=== PATIENT | male | born 1940 | race Caucasian/White ===

== ENCOUNTER 2020-08-31 11:07 | Observation (INO) | payer MEDICARE, SELFPAY ==
[2020-08-31] VITALS (13 sets, daily range): BP systolic 117–158; BP diastolic 70–91; PULSE 63–91; RESP 14–20; TEMP 36–36.8; O2SAT 97–100; BMI 35.2
--- NOTE | ~2020-08-31 | US_ITS ---
EXAMINATION: US venous doppler [facility] DATE: 09/01/2020 13:30 INDICATION: Lower limb edema. TECHNIQUE: Grayscale ultrasound images without and with compression and Doppler ultrasound images of the bilateral lower extremity veins were obtained. COMPARISON: None. FINDINGS: The visualized portions of right common femoral vein, profunda (deep) femoral vein, femoral vein, pop liteal vein, peroneal veins, posterior tibial veins, and greater saphenous vein outflow are patent. The visualized portions of left common femoral vein, profunda femoral vein, femoral vein, popliteal v ein, peroneal veins, posterior tibial veins, and greater saphenous vein outflow are patent. IMPRESSION: 1. No deep venous thrombosis. Reviewed, dictated and finalized at location A.
--- NOTE | ~2020-08-31 | XR_ITS ---
EXAMINATION: XR chest 1V portable DATE: 08/31/2020 12:21 INDICATION: Syncope. TECHNIQUE: A single frontal view of the chest was obtained on 2 radiographs. COMPARISON: None. FINDINGS: There is mild atelectasis in right lower lung zone. No pleural effusion or pneumothorax. Th e heart size is normal. There are prominent paracardial fat pads. Median sternotomy wires and mediast inal surgical clips are seen, likely from prior coronary artery bypass grafting. IMPRESSION: 1. Mild atelectasis in right lower lung zone. Reviewed, dictated and finalized at location A. ORATE LEGAL MANAGER
--- NOTE | ~2020-08-31 | US_ITS ---
EXAMINATION: US carotid duplex BI DATE: 09/01/2020 13:33 INDICATION: Syncope. TECHNIQUE: Grayscale, color Doppler, and pulsed Doppler images of the cervical carotid arteries were obtained. The degree of vessel stenosis is placed in one of the following categories: normal, <50%, 5 0-69%, >=70% but less than near-occlusion, near-occlusion, or total occlusion. Note that percent sten osis relative to normal distal artery lumen diameter is indirectly measured from velocity measurement s as described by Javier, et al. Radiology 2003; 229:340-346. COMPARISON: None. FINDINGS: RIGHT: The right common carotid artery (CCA) peak systolic velocity (PSV) is 63 cm/s. The right internal car otid artery (ICA) PSV is 63 cm/s. The right ICA end-diastolic velocity (EDV) is 11 cm/s. The right IC A/CCA PSV ratio is 1.0. Grayscale and color Doppler images yield an estimate of <50% diameter reducti on from plaque in the ICA. There is antegrade flow in the right vertebral artery. LEFT: The left CCA PSV is 58 cm/s. The left ICA PSV is 90 cm/s. The left ICA EDV is 21 cm/s. The left ICA/C CA PSV ratio is 1.6. Grayscale and color Doppler images yield an estimate of <50% diameter reduction from plaque in the ICA. There is antegrade flow in the left vertebral artery. IMPRESSION: 1. <50% stenosis in the right internal carotid artery. 2. <50% stenosis in the left internal carotid artery. Reviewed, dictated and finalized at location A.
--- NOTE | ~2020-08-31 | CT_ITS ---
EXAMINATION: CT brain wo con DATE: 08/31/2020 12:41 INDICATION: Loss of consciousness. Fall. TECHNIQUE: Computed tomography (CT) of the head was performed without intravenous contrast. The mA wa s adjusted according to patient size. Iterative reconstruction technique was employed. The dose-lengt h product was 681.00 mGy-cm. COMPARISON: None FINDINGS: There are scattered areas of low attenuation in the cerebral white matter, which is within normal limits for the patient's age. There is no intracranial hemorrhage, acute infarction, or abnorm al intracranial mass lesion. The ventricles are normal in size. There is mild mucosal thickening in t he paranasal sinuses. The orbits are normal. The mastoid air cells are normal. IMPRESSION: 1. Normal aging brain. Reviewed, dictated and finalized at location A. RITY SYSTEMS INTEGRATOR IMPRESSION: 1. Normal aging brain.
--- NOTE | 2020-08-31 11:25 | ECG_ITS ---
Measurements Intervals [place] Rate: 70 P: 61 [place]: 176 QRS: -12 QRSD: 97 T: 24 QT: 395 QTc: 428 Interpretive Statements SINUS RHYTHM BORDERLINE R WAVE PROGRESSION, ANTERIOR LEADS BORDERLINE T WAVE ABNORMALITY- INFERIOR LEADS BASELINE ARTIFACT- I, II, AVR, AVL, V4 BORDERLINE ECG Electronically Signed On 08-31-2020 12:05:53 HOTEL OR MOTEL RECEPTIONIST by Ruddy Carrillo D.O.
[2020-08-31 11:47] LABS: Basophils Percent Auto 0.4 % (0.2-1.2); Eosinophils Absolute Auto 0.1 K/mm3 (0-0.3); Eosinophils Percent Auto 1.7 % (0-4.4); Hematocrit 31.4 % (42.0-52.0); Hemoglobin 10.7 g/dL (14.0-18.0); Immature Granulocyte Absolute 0.01 K/mm3 (0.00-0.031); Immature Granulocyte Percent A 0.2 % (0-0.5); Lymphocytes Absolute Auto 1.34 K/mm3 (0.9-3.2); Lymphocytes Percent Auto 25.1 % (18.3-44.2); Mean Corpuscular HGB Conc 34.1 g/dl (32-36); Mean Corpuscular Hemoglobin 35.3 pg (26-34); Mean Corpuscular Volume 103.6 fl (80-100); Mean Platelet Volume 9.6 fl (7.4-10.4); Monocytes Absolute Auto 0.4 K/mm3 (0.1-0.6); Monocytes Percent Auto 8.3 % (2.6-8.5); Neutrophils Absolute Auto 3.4 K/mm3 (1.3-6.7); Neutrophils Percent Auto 64.3 % (45.5-73.1); Platelet Count Result 225 k/mm3 (150-375); Red Blood Count 3.03 M/mm3 (4.6-6.20); Red Cell Distribution Width 12.3 % (11.5-14.5); White Blood Count 5.3 K/mm3 (4.5-10.0)
[2020-08-31 11:51] LABS: Anion Gap 4 mmol/L (8-16); Blood Urea Nitrogen 13 mg/dL (9-20); Calcium 8.3 mg/dL (8.4-10.2); Carbon Dioxide 31 mmol/L (22-30); Chloride 105 mmol/L (98-107); Estimated CRCL calculation 71 ml/min; Estimated Glomerular Filt Rate > 60; Glucose 129 mg/dL (75-110); Potassium 3.7 mmol/L (3.4-5.0); Sodium 140 mmol/L (137-145)
[2020-08-31 12:49] LABS: NT Pro B Type Natriuretic Pept 513 PG/ML (5-100)
--- NOTE | 2020-08-31 13:02 | ED.FALL ---
HPI - Fall General Chief Complaint: Fall Stated Complaint: Fall, Eye Swelling Time Seen by Provider: 08/31/20 11:46 Source: patient and family Mode of arrival: ambulatory Limitations: no limitations History of Present Illness HPI Narrative: 80-[facility]-old [facility] with a history of CAD, hypertension, diabetes was brought in with the complaints of fall. Patient was found on the floor patient states that he passed out. He denies any chest pain, shortness of breath. No history of headache. Patient is not quite sure how long he passed out for. MD complaint: fall Onset (ago): unknown Fall from: standing Fall witnessed: no Place fall occurred: [facility] Loss of consciousness: yes Prolonged down time: unclear Symptoms prior to fall: none Location of injury: head Severity: mild Associated symptoms (after fall): denies Related Data Allergies Allergy/AdvReac Type Severity Reaction Status Date / Time No Known Allergies Allergy Verified 08/31/20 11:20 Review of Systems Review of Systems: All systems reviewed & are unremarkable except as noted in HPI and below Constitutional: Constitutional: Reports no additional constitutional complaints Eyes: Eyes: Reports no additional eye complaints ENT: Reports system reviewed and no additional complaints, except as documented Cardiovascular: Cardiovascular: Reports no additional cardiovascular complaints Respiratory: Respiratory: Reports no additional respiratory complaints Gastrointestinal: Gastrointestinal: Reports no additional gastrointestinal complaints Musculoskeletal: Musculoskeletal: Reports no additional musculoskeletal complaints Neurologic: Reports system reviewed and no additional complaints, except as documented Endocrine: Endocrine: Reports no additional endocrine complaints Hematologic/Lymphatic: Hematologic/Lymphatic: Reports no additional hematologic/lymphatic complaints PMFSH Social History Social History Gender identity (if verbalized by the patient): Male Exam Narrative: Exam Narrative: GENERAL: Well-appearing, well-nourished, and in no acute distress. HEAD: Normocephalic, atraumatic. a small hematoma on the right side of the forehead EYES: PERRLA and EOMI. NECK: Supple. CHEST: Clear to auscultation. No respiratory distress. HEART: Regular rate and rhythm. No murmur heard. Normal peripheral pulses. ABDOMEN: Soft, nontender, nondistended, normal active bowel sounds. EXTREMITIES: Normal range of motion. 3 plus edema SKIN: Warm, dry, no rash. NEURO: No focal deficits. Alert and oriented x3. PSYCH: Normal mood and affect. Course Course Emergency Course: Inform patient and family about his lab work, CT findings. We will admit him to the hospital for observation for syncope. Vital Signs Vital signs: Vital Signs Temperature 36.8 C 08/31/20 11:16 Pulse Rate 75 08/31/20 11:16 Respiratory Rate 20 08/31/20 11:16 Blood Pressure 146/79 H 08/31/20 11:16 Pulse Oximetry 99 08/31/20 11:16 Temperature 36.8 C 08/31/20 11:16 Pulse Rate 65 08/31/20 11:56 Respiratory Rate 20 08/31/20 11:56 Blood Pressure 117/91 H 08/31/20 11:56 Pulse Oximetry 97 08/31/20 11:56 MDM - Fall MDM Narrative Medical decision making narrative: Given history of syncopal episode will do a CT of the head blood work and EKG. Patient appears to have mild dementia as well we will admit him in the hospital. Lab Data Result diagrams: 08/31/20 11:34 08/31/20 11:34 Labs: Lab Results 08/31/20 08/31/20 08/31/20 Range/Units 11:32 11:34 11:34 WBC 5.3 (4.5-10.0) K/mm3 RBC 3.03 L (4.6-6.20) M/mm3 Hgb 10.7 L (14.0-18.0) g/dL Hct 31.4 L (42.0-52.0) % MCV 103.6 H (80-100) fl MCH 35.3 H (26-34) pg MCHC 34.1 (32-36) g/dl RDW 12.3 (11.5-14.5) % Plt Count 225 (150-375) k/mm3 MPV 9.6 (7.4-10.4) fl Immature Gran %
--- NOTE | 2020-08-31 14:40 | ADMGEN ---
This patient, Franky Lal, was admitted to Medical Room 245-. Patient/family oriented to hospital policies and general routines including ID bracelet, bed and alarms, visiting hours, pain management, procedures, bathroom and other care routines, personal items, smoking policy, room service/diet, and visiting hours. Information on how to activate the Rapid Response Team has been discussed. Patient/Family are encouraged to report perceived risks to care and to ask questions if they do not understand what they are told or what they should do.
--- NOTE | 2020-08-31 14:59 | PM.IMHP ---
H&P: HPI History of Present Illness Date/Time: 08/31/20 14:59This is a 80-year-old male patient who resides at [facility]. the memory care unit stated that the patient had been on the toilet and passed out and fell on the floor. The patient is unable to recall any of the events. The patient looks familiar to me but we are do not have any records here with that name. He is able to recall some information but most of the information was given from the records from [place]. He has a history of having coronary artery disease. He does have pitting edema to his lower extremities but he does not recall how long it has been there. From the ER records it was noted that the patient was found on the floor after passing out. He was not sure how long he passed out. He does have an abrasion to his right eye and his right forehead. Head CT was read as a normal aging brain. Chest x-ray was read as mild atelectasis and might lower lung zones. The patient has open abrasion to the right knee but does not complaining of ED right knee pain. He is able to move all extremities. His speech is clear. He is answering some of the questions without difficulty but has problems with short-term memory.The patient is being admitted to observation on the date of service of 08/31/2020. Chief Complaint: syncope Review of Systems Review of Systems: All systems reviewed & are unremarkable except as noted in HPI and below Constitutional: Constitutional: Reports as per HPI and Reports no additional constitutional complaints Eyes: Eyes: Reports as per HPI and Reports no additional eye complaints ENT: Reports system reviewed and no additional complaints, except as documented and Reports Normal hearing present Cardiovascular: Cardiovascular: Reports no additional cardiovascular complaints Respiratory: Respiratory: Reports no additional respiratory complaints and Reports no additional respiratory complaints Gastrointestinal: Gastrointestinal: Reports as per HPI and Reports no additional gastrointestinal complaints Musculoskeletal: Musculoskeletal: Reports no additional musculoskeletal complaints Integumentary/Breasts: Skin/Breast: Reports system reviewed and no additional complaints, except as docu and Reports as per HPI Neurologic: Reports system reviewed and no additional complaints, except as documented, Reports as per HPI and Reports Normal hearing present Psychiatric: Psychiatric: Reports no additional psychiatric complaints and Reports as per HPI Endocrine: Endocrine: Reports no additional endocrine complaints Hematologic/Lymphatic: Hematologic/Lymphatic: Reports no additional hematologic/lymphatic complaints Allergic/Immunologic: Allergic/Immunologic: Reports no additional allergic/immunologic complaints PMFSH Past Medical History Medical History (Updated 08/31/20 @ 15:23 by Oma Stephens NP) CAD (coronary artery disease) quadruple bypass 05/30/1985 angioplasty and stent 08/31/1996 Dementia DM2 (diabetes mellitus, type 2) Glaucoma History of peptic ulcer disease HTN (hypertension) with goal to be determined Hyperlipidemia Obstructive sleep apnea Surgical History Surgical History (Updated 08/31/20 @ 15:20 by Oma Stephens NP) H/O colonoscopy with polypectomy 05/07/2000, 05/2003, to 10/08/2008 History of coronary artery bypass graft quadruple bypass 05/30/1985 Dr. Shayan Millan S/P angioplasty with stent 08/31/1996 Dr. nunez stent 09/21/2007 Dr. murray medicated stent 10/19/[address] [facility] [address] celestin Family History Family History (Updated 08/31/20 @ 15:26 by Oma Stephens NP) Mother Cancer Father Cancer Social History Social History (Updated 08/31/20 @ 15:29 by Oma Stephens NP) Social History: the patient is and it looks like he resides at [facility]. The patient tells me that he has 5 children. He tells me that he retired from the [employer]
[2020-08-31 16:50] LABS: Troponin I < 0.012 ng/mL (0.000-0.034)
[2020-08-31] MEDS: lisinopriL 10 MG TABLET PO (18:21)
[2020-08-31] MEDS: CYANOCOBALAMIN 500 MCG TABLET PO (18:21)
[2020-08-31] MEDS: metFORMIN HCL 500 MG TABLET PO (18:23)
[2020-08-31 18:49] LABS: Glucose Point of Care 92 (65-105)
[2020-08-31 19:54] LABS: Troponin I < 0.012 ng/mL (0.000-0.034)
[2020-08-31] MEDS: METOPROLOL TARTRATE 25 MG TABLET PO (19:54)
[2020-08-31] MEDS: RANOLAZINE 500 MG TAB.ER.12H 1000 MG PO (19:55)
[2020-08-31 21:18] LABS: Glucose Point of Care 152 (65-105)
[2020-09-01] VITALS (14 sets, daily range): BP systolic 121–175; BP diastolic 73–97; PULSE 67–111; RESP 14–18; TEMP 35.9–36.9; O2SAT 96–100
--- NOTE | 2020-09-01 03:15 | PCDIET ---
Daylight Savings Time For Daylight Savings Time Ending in the Fall - Clocks are moved back. For Daylight Savings Time Beginning in the Spring - Clocks are moved ahead. For [facility], the time of change occurs at 0200 hrs. Time is taken from the server software engineer. This entry on the patient's chart recognizes the change in time reflected during documentation. Example: 2 entries for vital signs may be charted for 0200 hrs.
[2020-09-01 05:36] LABS: Hemoglobin A1C 6.4 % (<5.7)
[2020-09-01 05:37] LABS: Alanine Aminotransferase 17 U/L (4-50); Albumin Level 3.4 g/dL (3.5-5.1); Alkaline Phosphatase 62 U/L (38-126); Anion Gap 3 mmol/L (8-16); Aspartate Amino Transferase 25 U/L (17-59); Bilirubin,Total 0.4 mg/dL (0.2-1.3); Blood Urea Nitrogen 12 mg/dL (9-20); Calcium 8.4 mg/dL (8.4-10.2); Carbon Dioxide 30 mmol/L (22-30); Chloride 107 mmol/L (98-107); Estimated CRCL calculation 82 ml/min; Estimated Glomerular Filt Rate > 60; Glucose 141 mg/dL (75-110); Magnesium 1.4 mg/dL (1.6-2.3); Potassium 3.7 mmol/L (3.4-5.0); Sodium 140 mmol/L (137-145)
[2020-09-01 08:11] LABS: Glucose Point of Care 116 (65-105)
[2020-09-01] MEDS: ASPIRIN 81 MG CHEWABLE TABLET PO (08:40)
[2020-09-01] MEDS: ISOSORBIDE MONONITRATE 60 MG TAB.ER.24H PO (08:40)
[2020-09-01] MEDS: ROSUVASTATIN 10 MG TABLET 40 MG PO (08:40)
[2020-09-01] MEDS: CLOPIDOGREL BISULFATE 75 MG TABLET PO (08:40)
[2020-09-01] MEDS: METOPROLOL TARTRATE 25 MG TABLET PO ×2 (08:40→19:59)
[2020-09-01] MEDS: RANOLAZINE 500 MG TAB.ER.12H 1000 MG PO ×2 (08:40→19:59)
[2020-09-01] MEDS: PANTOPRAZOLE 40 MG TABLET PO (08:40)
[2020-09-01] MEDS: metFORMIN HCL 500 MG TABLET PO ×2 (08:40→17:59)
[2020-09-01] MEDS: MAGNESIUM OXIDE 400 MG TABLET PO (08:40)
[2020-09-01] MEDS: CHOLECALCIFEROL 1,000 UNITS TABLET 5000 UNITS PO (08:40)
[2020-09-01] MEDS: MAGNESIUM SULF 2 GM/WATER 50ML 2 GM/50 ML BAG IVPB (08:42)
[2020-09-01 10:24] LABS: Free T4 Free Thyroxine Reflex 0.94 ng/dL (0.78-2.19)
[2020-09-01 11:35] LABS: Total Triiodothyronine (T3) 1.11 NG/ML (0.97-1.69)
[2020-09-01 12:11] LABS: Glucose Point of Care 112 (65-105)
--- NOTE | 2020-09-01 14:41 | PM.IMPN ---
Progress Note: A&P Assessment and Plan (1) Syncope: Qualifiers: Syncope type: unspecified Qualified Code(s): R55 - Syncope and collapse Code(s): R55 - Syncope and collapse Status: Acute Assessment and Plan: Likely neurocardiogenic. Telemetry unremarkable thus far, with much artifact Continue to monitor. May return to [facility] 09/02 if COVID-19 swab returns negative (2) CAD (coronary artery disease): Code(s): I25.10 - Atherosclerotic heart disease of [place] coronary artery without angina pectoris Status: Chronic Assessment and Plan: Continue with Plavix, isosorbide ,magnesium, Ranexa, and metoprolol. The patient has had a 4 vessel CABG and multiple stents in the past. Checking troponins. (3) Dementia: Code(s): F03.90 - Unspecified dementia without behavioral disturbance Status: Chronic Assessment and Plan: Patient is from [facility] memory care unit. (4) Glaucoma: Code(s): H40.9 - Unspecified glaucoma Status: Chronic Assessment and Plan: Continue with his eyedrops. (5) DM2 (diabetes mellitus, type 2): Code(s): E11.9 - Type 2 diabetes mellitus without complications Status: Chronic Assessment and Plan: Adequate control. Accu-Cheks AC and HS. Check A1c. Continue with metformin. (6) Hyperlipidemia: Code(s): E78.5 - Hyperlipidemia, unspecified Status: Chronic Assessment and Plan: Continue with home medications. (7) HTN (hypertension) with goal to be determined: Code(s): I10 - Essential (primary) hypertension Status: Chronic Assessment and Plan: Continue with metoprolol (8) Obstructive sleep apnea: Code(s): G47.33 - Obstructive sleep apnea (adult) (pediatric) Status: Chronic Assessment and Plan: auto titrate for CPAP. (9) DNR (do not resuscitate): Code(s): Z66 - Do not resuscitate Status: Acute Subjective Date/time seen: 09/01/20 14:41 Interval history: Admitted with syncopal episode, allegedly while toileting. 09/01: No c/o of pain. No recurrent symptoms. Good appetite. Review of Systems Review of Systems: ROS unobtainable: Yes unobtainable due to medical condition Exam Narrative: Exam Narrative: HEENT: PERRL, sclerae nonicteric, pharyngeal mucosa pink and intact NECK: No JVD, adenopathy, or thyromegaly CHEST: Clear to auscultation. Normal effort. HEART: NL S1/S2, regular, no murmur ABDOMEN: BS+, soft, nontender, no mass, no bruits EXTREMITIES: No cyanosis, + trace pretibial edema NEUROLOGIC: CN intact and symmetric to inspection. MUSCULOSKELETAL: Tone and strength symmetric. PSYCH: Alert. Oriented to person. Objective Data Vital Signs Vital Signs: Vital Signs - 24 hr 08/31/20 14:09 08/31/20 14:25 08/31/20 16:00 Temperature 97.7 F Pulse Rate 66 71 63 Respiratory Rate 20 14 Blood Pressure 135/89 123/70 Pulse Oximetry 98 100 08/31/20 18:00 08/31/20 19:54 08/31/20 20:00 Temperature 96.8 F L 97.4 F L Pulse Rate 80 84 91 Respiratory Rate 18 18 Blood Pressure 158/90 H 157/73 H Pulse Oximetry 100 100 08/31/20 20:30 09/01/20 00:00 09/01/20 04:00 Temperature 97.5 F L 97.8 F Pulse Rate 84 85 Respiratory Rate 20 18 18 Blood Pressure 147/89 H 138/89 Pulse Oximetry 97 98 100 09/01/20 08:00 09/01/20 08:40 09/01/20 10:00 Temperature 97.1 F L Pulse Rate 82 85 83 Respiratory Rate 16 Blood Pressure 133/80 Pulse Oximetry 100 09/01/20 12:00 Temperature Pulse Rate 70 Respiratory Rate Blood Pressure Pulse Oximetry Intake/Output Intake/Output: Intake & Output 08/29/20 08/30/20 08/31/20 09/02/20 23:59 23:59 23:59 00:59 Intake Total 220 240 Output Total 250 Balance 220 -10 Meds/Results Medications: Active Medications Generic Name Dose Route Start Last Admin Trade Name Freq PRN Reason Stop Dose Admin Acetaminophen 650 mg 08/31/20 12
[2020-09-01 16:51] LABS: Glucose Point of Care 173 (65-105)
[2020-09-01] MEDS: CYANOCOBALAMIN 500 MCG TABLET PO (18:00)
[2020-09-01] MEDS: lisinopriL 10 MG TABLET PO (18:00)
[2020-09-01] MEDS: NITROGLYCERIN SL 0.4 MG TABLET SUBLINGUAL (19:57)
[2020-09-02] VITALS (14 sets, daily range): BP systolic 107–170; BP diastolic 69–99; PULSE 66–89; RESP 16–20; TEMP 35.8–36.6; O2SAT 96–100
--- NOTE | 2020-09-02 | ECHO_ITS ---
Patient Info Name: Franky Lal Age: 80 years : 1940 Gender: Male Ht: 72 in Wt: 260 lbs BSA: 2.49 m2 HR: 70 bpm BP: 156 / 85 mmHg Heart Rhythm: Sinus Rhythm Technical Quality: Good Exam Date: 09/02/2020 1:59 PM Exam Location: [facility] Patient Status: Outpatient Admit Date: 08/31/2020 Staff Ordering Physician: Oma Stephens NP Collection Specialist: Francis Mcclain, [place], RT Attending Provider: Reyna Dowling MD Referring Physician: [facility] ; Exam Type: CA echo doppler color flow Study Info Indications R60.0 - Localized edema Complete two-dimensional, color flow and Doppler transthoracic echocardiogram is performed. Strain analysis performed. Summary 1. Complete two-dimensional, color flow and Doppler transthoracic echocardiogram is performed. 2. Left ventricular systolic function is normal, estimated at 60-65%. 3. There is moderately increased left ventricular wall thickness. 4. The left ventricular diastolic function is grade II diastolic dysfunction. 5. Global longitudinal strain is mildly elevated at -15 %. 6. Left atrial chamber dimension is moderately enlarged. 7. There is no aortic valve stenosis. 8. There is trace mitral valve regurgitation. Left Ventricle Left ventricular chamber dimension is normal. Left ventricular systolic function is normal, estimated at 60-65%. There is moderately increased left ventricular wall thickness. The left ventricular diastolic function is grade II diastolic dysfunction. Global longitudinal strain is mildly elevated at -15 %. Right Ventricle Right ventricular chamber dimension is normal. Right ventricular systolic function is normal. Left Atria Left atrial chamber dimension is moderately enlarged. Right Atria Right atrial chamber dimension is mildly enlarged. Aortic Valve The aortic valve is not well visualized. There is mild aortic valve sclerosis. There is no aortic valve stenosis. There is no aortic valve regurgitation. Pulmonic Valve The pulmonic valve is not well visualized. There is trace pulmonic regurgitation. Mitral Valve The mitral valve has not well visualized. There is trace mitral valve regurgitation. The mitral valve annulus is moderately calcified. Tricuspid Valve The tricuspid valve leaflets are normal. There is mild tricuspid valve regurgitation. Unable to estimate PA systolic pressure due to poor spectral resolution of tricuspid regurgitant jet velocity. Pericardium/Pleural The pericardium appears normal. There is no pericardial effusion. Inferior Vena Cava Dilated inferior vena cava with <50% collapse upon inspiration consistent with elevated right atrial pressure, 10 mmHg. Aorta The aortic root size at the sinus of Valsalva is normal. Left Ventricular Outflow Tract Name Value Normal LVOT 2D LVOT Diameter 2.2 cm LVOT Doppler LVOT Peak Gradient 2 mmHg LVOT Mean Gradient 2 mmHg LVOT VTI 18 cm LVOT VTI/AV VTI Ratio 0.7 LVOT Stroke Vo
[2020-09-02 01:03] LABS: Glucose Point of Care 117 (65-105)
[2020-09-02 04:51] LABS: Hematocrit 32.2 % (42.0-52.0); Hemoglobin 11.1 g/dL (14.0-18.0); Mean Corpuscular HGB Conc 34.5 g/dl (32-36); Mean Corpuscular Volume 101.6 fl (80-100); Mean Platelet Volume 9.5 fl (7.4-10.4); Platelet Count Result 232 k/mm3 (150-375); Red Blood Count 3.17 M/mm3 (4.6-6.20); Red Cell Distribution Width 12.1 % (11.5-14.5); White Blood Count 5.6 K/mm3 (4.5-10.0)
[2020-09-02 05:04] LABS: Alanine Aminotransferase 15 U/L (4-50); Albumin Level 3.2 g/dL (3.5-5.1); Alkaline Phosphatase 53 U/L (38-126); Anion Gap 3 mmol/L (8-16); Aspartate Amino Transferase 20 U/L (17-59); Bilirubin,Total 0.5 mg/dL (0.2-1.3); Blood Urea Nitrogen 10 mg/dL (9-20); Calcium 8.3 mg/dL (8.4-10.2); Carbon Dioxide 30 mmol/L (22-30); Chloride 105 mmol/L (98-107); Estimated CRCL calculation 82 ml/min; Estimated Glomerular Filt Rate > 60; Glucose 118 mg/dL (75-110); Magnesium 1.6 mg/dL (1.6-2.3); Potassium 3.5 mmol/L (3.4-5.0); Sodium 138 mmol/L (137-145)
--- NOTE | 2020-09-02 06:23 | PC.NURSE ---
Pt very agitated throughout shift and hard to keep in his room. Pt impulsive and made multiple bed exits without assistance. Pt uncooperative and hard to re-direct. I had to call the patient's x2 to help calm the pt down. Pt remains confused and often makes inappropriate comments. Pt states he is tired but has not slept all shift. Will continue to monitor and assist pt. Will pass on information to day shift.
[2020-09-02] MEDS: ASPIRIN 81 MG CHEWABLE TABLET PO (08:02)
[2020-09-02] MEDS: METOPROLOL TARTRATE 25 MG TABLET PO (08:02)
[2020-09-02] MEDS: CHOLECALCIFEROL 1,000 UNITS TABLET 5000 UNITS PO (08:02)
[2020-09-02] MEDS: RANOLAZINE 500 MG TAB.ER.12H 1000 MG PO (08:02)
[2020-09-02] MEDS: CLOPIDOGREL BISULFATE 75 MG TABLET PO (08:02)
[2020-09-02] MEDS: PANTOPRAZOLE 40 MG TABLET PO (08:02)
[2020-09-02] MEDS: metFORMIN HCL 500 MG TABLET PO (08:02)
[2020-09-02] MEDS: ISOSORBIDE MONONITRATE 60 MG TAB.ER.24H PO (08:02)
[2020-09-02] MEDS: MAGNESIUM OXIDE 400 MG TABLET PO (08:03)
[2020-09-02] MEDS: ROSUVASTATIN 10 MG TABLET 40 MG PO (08:03)
[2020-09-02 12:43] LABS: Glucose Point of Care 107 (65-105)
[2020-09-02 12:43] LABS: Glucose Point of Care 100 (65-105)
[2020-09-02 12:58] LABS: SARS-CoV-2 RNA PCR Negative
--- NOTE | 2020-09-02 13:14 | PM.DS ---
DS: Admitting Diagnosis Admitting Diagnosis Admitting Diagnosis: Syncope/fall DS: Discharge Diagnosis Discharge Diagnosis (1) Syncope: Qualifiers: Syncope type: unspecified Qualified Code(s): R55 - Syncope and collapse Code(s): R55 - Syncope and collapse Status: Acute Assessment and Plan: Likely fainting episode. Telemetry unremarkable. Vitals checks, Orthostatic Bp checked prior to discharge. CT head negative. May return to [facility] 09/02, covid is negative. (2) CAD (coronary artery disease): Code(s): I25.10 - Atherosclerotic heart disease of [place] coronary artery without angina pectoris Status: Chronic Assessment and Plan: Continue with Plavix, isosorbide ,magnesium, Ranexa, and metoprolol. The patient has had a 4 vessel CABG and multiple stents in the past. troponin is normal. (3) Dementia: Code(s): F03.90 - Unspecified dementia without behavioral disturbance Status: Chronic Assessment and Plan: Patient is from [facility]. (4) Glaucoma: Code(s): H40.9 - Unspecified glaucoma Status: Chronic Assessment and Plan: Continue with his eyedrops. (5) DM2 (diabetes mellitus, type 2): Code(s): E11.9 - Type 2 diabetes mellitus without complications Status: Chronic Assessment and Plan: Hbaic is 6.4, Continue with metformin. (6) Hyperlipidemia: Code(s): E78.5 - Hyperlipidemia, unspecified Status: Chronic Assessment and Plan: Continue with home medications. (7) HTN (hypertension) with goal to be determined: Code(s): I10 - Essential (primary) hypertension Status: Chronic Assessment and Plan: Continue with metoprolol (8) Obstructive sleep apnea: Code(s): G47.33 - Obstructive sleep apnea (adult) (pediatric) Status: Chronic Assessment and Plan: auto titrate for CPAP. (9) DNR (do not resuscitate): Code(s): Z66 - Do not resuscitate Status: Acute DS: Summary Hospital Course Hospital Course: This is a 80-year-old male patient who resides at [facility]. the memory care unit stated that the patient had been on the toilet and passed out and fell on the floor. CT head and telemetry is negative likely a fainting episode. Time Spent with Patient Time attestation: Total time spent providing and/or coordinating discharge services: Exam Narrative: Exam Narrative: HEENT: PERRL, sclerae nonicteric, pharyngeal mucosa pink and intact NECK: No JVD, adenopathy, or thyromegaly CHEST: Clear to auscultation. Normal effort. HEART: NL S1/S2, regular, no murmur ABDOMEN: BS+, soft, nontender, no mass, no bruits EXTREMITIES: No cyanosis, + trace pretibial edema NEUROLOGIC: CN intact and symmetric to inspection. MUSCULOSKELETAL: Tone and strength symmetric. PSYCH: Alert. Oriented to person. DS: Data Data Completed and Pending Labs on day of discharge: Labs from last 24 hours 09/02/20 09/02/20 09/02/20 12:25 07:26 04:32 WBC RBC Hgb Hct MCV MCH MCHC RDW Plt Count MPV Sodium 138 Potassium 3.5 Chloride 105 Carbon Dioxide 30 Anion Gap 3 L BUN 10 Creatinine 0.80 Estim Creat Clear Calc 82 Estimated GFR > 60 Glucose 118 H POC Capillary Glucose 100 107 Calcium 8.3 L Magnesium 1.6 Total Bilirubin 0.5 AST 20 ALT 15 Alkaline Phosphatase 53 Total Protein 6.0 L Albumin 3.2 L SARS-CoV-2 RNA (RT-PCR) 09/02/20 09/02/20 09/02/20 04:32 04:16 01:00 WBC 5.6 RBC 3.17 L Hgb 11.1 L Hct 32.2 L MCV 101.6 H MCH 35.0 H MCHC 34.5 RDW 12.1 Plt Count 232 MPV 9.5 Sodium Potassium Chloride Carbon Dioxide Anion Gap BUN Creatinine Estim Creat Clear Calc Estimated GFR Glucose POC Capillary Glucose 117 H Calcium Magnesium Total Bilirubin AST
[2020-09-02] MEDS: SODIUM CHLORIDE 0.9% IV 500 ML IV CONT (14:35)
[2020-09-02 17:27] LABS: Glucose Point of Care 87 (65-105)
== END 2020-09-02 17:27 ==
LOC: ANHED 13:25 → ANH2MED 14:13
PROVIDERS: Internal Medicine; Nurse Practitioner; Admitting Provider Family Medicine; Emergency Provider Family Medicine; PCP Internal Medicine; Visit Provider Family Medicine
DX: R55 Syncope and collapse (principal); Z20.822 Contact with and (suspected) exposure to COVID-19; R60.0 Localized edema; E11.9 Type 2 diabetes mellitus without complications; E78.5 Hyperlipidemia, unspecified; F03.90 Unspecified dementia, unspecified severity, without behavioral disturbance, psychotic disturbance, mood disturbance, and anxiety; G47.33 Obstructive sleep apnea (adult) (pediatric); H40.9 Unspecified glaucoma; I25.10 Atherosclerotic heart disease of native coronary artery without angina pectoris; I10 Essential (primary) hypertension; Z66 Do not resuscitate; Z79.84 Long term (current) use of oral hypoglycemic drugs; W18.11XA Fall from or off toilet without subsequent striking against object, initial encounter; Z79.899 Other long term (current) drug therapy
CPT/HCPCS: 36415; 70450; 71045; 80048; 80053; 82948; 83036; 83735; 83880; 84439; 84443; 84480; 84484; 85025; 85027; 93005; 93306; 93880; 93970; 96361; 96365; 97110; 97116; 97161; 97165; 99285; A9270; C9803; G0378; J3475; J7040; U0003; U0005

== ENCOUNTER 2020-09-23 09:47 | Inpatient (IN) | payer MEDICARE, SELFPAY ==
[2020-09-23] VITALS (8 sets, daily range): BP systolic 101–165; BP diastolic 71–99; PULSE 87–113; RESP 14–19; TEMP 37.1–37.8; O2SAT 96–99; BMI 31.4
--- NOTE | ~2020-09-23 | XR_ITS ---
EXAMINATION: XR foot LT min 3V DATE: 09/23/2020 10:18 INDICATION: Erythema and swelling at the left foot TECHNIQUE: Dorsoplantar, two oblique and lateral views of the left foot were obtained. COMPARISON: None. FINDINGS: Old healed fracture deformity at the distal metadiaphyseal region of the left fibula. Screw fixation of an old fracture at the medial malleolus. Hallux valgus and bunion with hypertrophic change along t he medial head of the first metatarsal. No acute fracture. Moderate polyarticular osteoarthritis most prominent at the tibiotalar joint, second and third tarsal metatarsal joints at the first metatarsop halangeal joint and at multiple interphalangeal joints. Dystrophic calcifications in the soft tissues along the medial head of the first metatarsal. Small plantar calcaneal spur. Small loose body at the anterior recess of the tibiotalar joint space. Prominent soft tissue swelling about the left forefoo t. IMPRESSION: 1. Old healed distal left tibial and fibular fractures with screw fixation at the medial malleolus. N o acute osseous abnormality. 2. 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 3. Dystrophic calcifications in the soft tissues about the medial head of the first metatarsal. Diffe rential includes acute calcific periarthritis, crystalline deposition disease including gout and calc ium pyrophosphate deposition (CPPD) disease, tumoral calcinosis and collagen vascular disease. Reviewed, dictated and finalized at location B. IMPRESSION: 1. Old healed distal left tibial and fibular fractures with screw fixation at t he medial malleolus. No acute osseous abnormality. 2. 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 3. Dystrophic calcifications in the soft tissues about the medial head of the f irst metatarsal. Differential includes acute calcific periarthritis, crystallin e deposition disease including gout and calcium pyrophosphate deposition (CPPD) disease, tumoral calcinosis and collagen vascular disease.
--- NOTE | ~2020-09-23 | CT_ITS ---
EXAMINATION: CT brain wo con DATE: 09/23/2020 11:32 INDICATION: Altered mental status. Confusion. TECHNIQUE: Computed tomography (CT) of the head was performed without intravenous contrast. The mA wa s adjusted according to patient size. Iterative reconstruction technique was employed. The dose-lengt h product was 605.33 mGy-cm. COMPARISON: Head CT 08/31/2020 FINDINGS: There are scattered areas of low attenuation in the cerebral white matter, which is within normal limits for the patient's age. There is no intracranial hemorrhage, acute infarction, or abnorm al intracranial mass lesion. The ventricles are normal in size. There is mild mucosal thickening in t he paranasal sinuses. The orbits are normal. The mastoid air cells are normal. IMPRESSION: 1. Normal aging brain. Reviewed, dictated and finalized at location A. IMPRESSION: 1. Normal aging brain.
--- NOTE | ~2020-09-23 | CT_ITS ---
EXAMINATION: CT abdomen pelvis w con DATE: 09/24/2020 14:10 INDICATION: Abdominal pain. TECHNIQUE: Computed tomography (CT) of the abdomen and pelvis was performed with 100 mL Omnipaque 350 intravenous contrast. Automated exposure control and iterative reconstruction technique were employe d. The dose-length product was 1886.09 mGy-cm. COMPARISON: None. FINDINGS: The visualized portions of the lung bases demonstrate mild atelectasis. No pleural effusion . The heart size is normal. There are coronary artery calcifications. There are calcifications of the aortic valve. No pericardial effusion. The liver, spleen, gallbladder, pancreas, adrenal glands are normal. There is cortical thinning of the kidneys. A penile prosthesis is noted. There are no dilated loops of bowel. The appendix is not visualized. There is diffuse wall thickening of the bladder, whi ch is decompressed. There are no pathologically enlarged lymph nodes. There is no free intraperitonea l fluid. There is calcified atherosclerosis of the aorta and many of the other arteries. There is sev ere stenosis of left common femoral artery. There is mild lumbar spondylosis. IMPRESSION: 1. Diffuse bladder wall thickening, consistent with cystitis. Reviewed, dictated and finalized at location A.
--- NOTE | ~2020-09-23 | XR_ITS ---
EXAMINATION: XR chest 2V DATE: 09/23/2020 10:18 INDICATION: Chest pain. Weakness. TECHNIQUE: frontal and lateral views of the chest were obtained. COMPARISON: Chest radiograph dated 08/31/2020 FINDINGS: Mild streaky opacities at the medial left lung base. No other airspace opacities, pulmonary edema, pl eural effusion or pneumothorax. The cardiomediastinal silhouette is normal. Median sternotomy wires a nd mediastinal surgical clips are seen, likely from prior coronary artery bypass grafting. IMPRESSION: 1. Mild streaky opacities at the medial left lung base and favor atelectasis over pneumonia. Reviewed, dictated and finalized at location B. IMPRESSION: 1. Mild streaky opacities at the medial left lung base and favor atelectasis ov er pneumonia.
--- NOTE | 2020-09-23 09:53 | ECG_ITS ---
Measurements Intervals [place] Rate: 116 P: 13 IN: 178 QRS: 10 QRSD: 91 T: 32 QT: 353 QTc: 491 Interpretive Statements SINUS TACHYCARDIA VENTRICULAR PREMATURE COMPLEX DELAYED PRECORDIAL R/S TRANSITION INFERIOR INFARCT, AGE INDETERMINATE BASELINE ARTIFACT- I, II ABNORMAL ECG Electronically Signed On 09-23-2020 11:08:58 CDT by Ruddy Carrillo D.O.
[2020-09-23 11:01] LABS: Basophils Percent Auto 0.1 % (0.2-1.2); Eosinophils Percent Auto 0.5 % (0-4.4); Hematocrit 33.8 % (42.0-52.0); Hemoglobin 11.4 g/dL (14.0-18.0); Immature Granulocyte Absolute 0.03 K/mm3 (0.00-0.031); Immature Granulocyte Percent A 0.3 % (0-0.5); Lymphocytes Percent Auto 5.8 % (18.3-44.2); Mean Corpuscular HGB Conc 33.7 g/dl (32-36); Mean Corpuscular Volume 100.9 fl (80-100); Mean Platelet Volume 9.8 fl (7.4-10.4); Monocytes Absolute Auto 0.4 K/mm3 (0.1-0.6); Neutrophils Absolute Auto 7.7 K/mm3 (1.3-6.7); Neutrophils Percent Auto 88.3 % (45.5-73.1); Platelet Count Result 242 k/mm3 (150-375); Red Blood Count 3.35 M/mm3 (4.6-6.20); White Blood Count 8.7 K/mm3 (4.5-10.0)
[2020-09-23 11:18] LABS: Alanine Aminotransferase 17 U/L (4-50); Alkaline Phosphatase 62 U/L (38-126); Anion Gap 8 mmol/L (8-16); Aspartate Amino Transferase 25 U/L (17-59); Blood Urea Nitrogen 20 mg/dL (9-20); CRP 2.8 mg/dL (<1.0); Calcium 9.1 mg/dL (8.4-10.2); Carbon Dioxide 29 mmol/L (22-30); Chloride 103 mmol/L (98-107); Estimated Glomerular Filt Rate 58; Glucose 183 mg/dL (75-110); Potassium 3.7 mmol/L (3.4-5.0); Sodium 140 mmol/L (137-145)
[2020-09-23 11:26] LABS: Troponin I < 0.012 ng/mL (0.000-0.034)
[2020-09-23 11:32] LABS: Add Urine Microscopic? YES; Appearance Urine Cloudy (Clear); Bacteria Urine Trace /hpf; Bilirubin Urine Negative (Negative); Blood Urine Negative (Negative); Color Urine Yellow (Yellow); Glucose Urine UA Negative (Negative); Ketones Urine Negative (Negative); Leukocyte Esterase Ur 3+ LEU/UL (Negative); Mucus Urine Rare /lpf; Nitrate Urine Positive (Negative); Protein Urine 1+ mg/dL (Negative); Specific Grav Ur 1.014 (1.001-1.035); Urobilinogen Urine Negative mg/dL (<2.0); WBC Clumps Urine Present /HPF; WBC Urine >75 /hpf
[2020-09-23 11:33] LABS: Erythrocyte Sedimentation Rate 91 mm/hr (0-20)
--- NOTE | 2020-09-23 12:48 | ED.GENADULT ---
HPI - General Adult General Chief complaint: Weakness Stated complaint: altered mental status/cp Time Seen by Provider: 09/23/20 09:48 Source: patient, family ( Tabatha) and other (senior living staff) Mode of arrival: EMS Limitations: dementia History of Present Illness HPI narrative: Patient presents with chief complaint of feeling more fatigued and having falls recently. Patient reports some fatigue and generalized discomfort over the past few days. They report that he has had 2 falls over the past 2 days which is abnormal for him. The patient does have a history of dementia and is alert to self and place which is his baseline. Patient is on blood thinners. At this time patient does not complain of any chest pain, shortness of breath, chills, nausea, vomiting, abdominal pain, urinary discomfort or symptoms. Related Data Home Medications Medication Instructions Recorded Confirmed artificial tears solution 1 drp OPHTHALMIC (EYE) QID 08/31/20 08/31/20 aspirin 81 mg PO DAILY 08/31/20 08/31/20 cholecalciferol (vitamin D3) 125 mcg PO DAILY 08/31/20 08/31/20 [Vitamin D3] clopidogrel [Plavix] 75 mg PO DAILY 08/31/20 08/31/20 cyanocobalamin (vitamin B-12) 500 mcg PO QPM 08/31/20 08/31/20 isosorbide mononitrate 60 mg PO DAILY 08/31/20 08/31/20 lisinopril 10 mg PO QPM 08/31/20 08/31/20 magnesium 400 mg PO DAILY 08/31/20 08/31/20 metformin 500 mg PO BID 08/31/20 08/31/20 metoprolol tartrate 25 mg PO QAM AND QPM 08/31/20 08/31/20 nitroglycerin 0.4 mg SUBLINGUAL USEASDIRECTD PRN 08/31/20 08/31/20 pantoprazole 40 mg PO QAM 08/31/20 08/31/20 polyethylene glycol 3350 [Miralax] 17 g PO DAILY PRN 08/31/20 08/31/20 ranolazine [Ranexa] 1,000 mg PO Q12H 08/31/20 08/31/20 rosuvastatin [Crestor] 40 mg PO DAILY 08/31/20 08/31/20 vit C-vit [id number]-[id number]-om-3 1 cap PO DAILY 08/31/20 08/31/20 Allergies Allergy/AdvReac Type Severity Reaction Status Date / Time ketorolac [From Toradol] Allergy Swelling Verified 08/31/20 16:55 Review of Systems Review of Systems: Narrative: CONSTITUTIONAL: Reports fatigue, fever EYES: Denies visual changes, redness, or discharge. ENT: Denies rhinorrhea, congestion, sore throat, or otalgia. CARDIOVASCULAR: Denies chest pain, palpitations, or edema. RESPIRATORY: Denies cough or dyspnea. GASTROINTESTINAL: Denies abdominal pain, nausea, vomiting, or diarrhea. GENITOURINARY: Denies dysuria or hematuria. SKIN: Denies rash or itching. MUSCULOSKELETAL: Reports left great toe pain Denies back pain, joint pain, or myalgia. NEUROLOGIC: Reports increased confusion Denies headache, numbness, dizziness, or weakness. PSYCHIATRIC: Denies anxiety or depression. [facility] Past Medical History Medical History (Updated 09/23/20 @ 13:37 by Jose Short PA-C) CAD (coronary artery disease) quadruple bypass 05/30/1985 angioplasty and stent 08/31/1996 Dementia DM2 (diabetes mellitus, type 2) Glaucoma History of peptic ulcer disease HTN (hypertension) with goal to be determined Hyperlipidemia Obstructive sleep apnea Surgical History Surgical History (Updated 08/31/20 @ 15:20 by Oma Stephens NP) H/O colonoscopy with polypectomy 05/07/2000, 05/2003, to 10/08/2008 History of coronary artery bypass graft quadruple bypass 05/30/1985 Dr. Shayan Kay [facility] S/P angioplasty with stent 08/31/1996 Dr. nunez stent 09/21/2007 Dr. murray medicated stent 10/19/2007 [facility] Dr. celestin Family History Family History (Updated 08/31/20 @ 15:26 by Oma Stephens NP) Mother Cancer Father Cancer Social History Social History (Updated 08/31/20 @ 15:29 by Oma Stephens NP) Social History: the patient is and it looks like he resides at [facility]. The patient tells me that he has 5 children. He tells me that he retired from the [employer] I believe and that he retired from [employer]. He said he has never smoked. And has been a long time since he drink any alcohol. He agree
[2020-09-23 13:56] LABS: Uric Acid 6.8 mg/dL (3.5-8.5)
--- NOTE | 2020-09-23 16:49 | ADMGEN ---
This patient, Franky Lal, was admitted to [facility] Surg Room 304-01. Patient/family oriented to hospital policies and general routines including ID bracelet, bed and alarms, visiting hours, pain management, procedures, bathroom and other care routines, personal items, smoking policy, room service/diet, and visiting hours. Information on how to activate the Rapid Response Team has been discussed. Patient/Family are encouraged to report perceived risks to care and to ask questions if they do not understand what they are told or what they should do.
--- NOTE | 2020-09-23 20:45 | PM.IMHP ---
H&P: HPI History of Present Illness Date/Time: 09/23/20 20:45 Chief Complaint: Altered mental status and confusion. Narrative: This is an 80-year-old male with dementia, coronary artery disease, diabetes, hypertension, and several other comorbidities who presented to the emergency department earlier today from his [facility] for evaluation of altered mental status and confusion. Given his dementia and confusion he is not the greatest historian as such some of the following is obtained via a review of his electronic medical records as well as information obtained from his . According to the EMS report, they were called to [facility] as staff noted the patient was increasingly confused from baseline, has been more weak, and apparently he had 2 falls over the weekend although he did not injure himself. He apparently was complaining of some chest pain on their arrival and at the time my evaluation he indicates that he has had some discomfort in the right anterior chest ?like a heart attack.? He cannot further elaborate however he denies any current chest pain. He also mentions dysuria, suprapubic discomfort, and chills. He denies sinus congestion, rhinorrhea, otalgia, odynophagia, current chest pain, shortness of breath, nausea, and vomiting. He currently denies joint pain although mentions that he has occasional pain in his left great toe where he has chronic issues with gout. Review of Systems Review of Systems: Narrative: Twelve systems were reviewed but are limited given his memory loss. He denies headache and neck ache. No focal weakness or paresthesias. He denies syncope and near-syncope. No chest pain, pleuritic pain, or palpitations. He denies cough and shortness of breath. He thinks he has had some loose stools. Except as documented, all other systems were reviewed and are negative. [facility] Past Medical History Medical History (Updated 09/23/20 @ 22:48 by Queenie Sin PA-C) Anxiety Benign prostatic hyperplasia Chronic anemia Coronary artery disease History of multiple stents over the years and 4 vessel bypass in 1984. Dementia Gastroesophageal reflux disease Glaucoma Gout History of peptic ulcer disease Hyperlipidemia Hypertension Obstructive sleep apnea Type 2 diabetes mellitus Hemoglobin A1c was 6.4% on 09/01/2020. Surgical History Surgical History (Updated 09/23/20 @ 22:42 by Queenie Sin PA-C) History of appendectomy History of colonoscopy with polypectomy History of coronary angioplasty with insertion of stent Multiple stents placed over the years. History of coronary artery bypass graft 4 vessel bypass on 05/30/[address] Downey at [facility]. History of orthopedic surgery Pinning of left fracture in the 1960s. History of toe surgery Right 1st toe surgery, patient states related to chronic gout. Family History Family History Mother Cancer Father Cancer Social History Social History (Updated 09/23/20 @ 22:40 by Queenie Sin PA-C) Social History: The patient is . He is now a resident at [facility]. His still lives in [place]. The patient tells me that he had 5 children. He was in the [employer] and retired from [employer]. Lifelong nonsmoker. No alcohol or illicit substance use. His Zehra and daughter Chantelle Menard are his emergency contact. Code status: Do not resuscitate. Sexual Orientation (if Verbalized by the Patient): Straight or Heterosexual Meds Home Medications and Allergies Home Medications Medication Instructions Recorded Confirmed Type artificial tears solution 1 drp OPHTHALMIC (EYE) QID 08/31/20 09/23/20 History aspirin 81 mg PO DAILY 08/31/20 09/23/20 History cholecalciferol (vitamin D3) 25 mcg PO DAILY 08/31/20 09/23/20 History [Vitamin D3] clopidogrel [Plavix] 75 mg PO DAILY 08/31/20 09/23/20 History cyanoco
[2020-09-23 21:24] LABS: Glucose Point of Care 156 (65-105)
[2020-09-23] MEDS: SODIUM CHLORIDE 0.9% IV 1,000 ML 100 ML IV CONT (23:28)
[2020-09-24] VITALS (12 sets, daily range): BP systolic 117–151; BP diastolic 69–98; PULSE 86–112; RESP 16–18; TEMP 36.2–36.9; O2SAT 92–99; BMI 30.5
[2020-09-24 00:36] LABS: Troponin I < 0.012 ng/mL (0.000-0.034)
[2020-09-24 06:04] LABS: Hematocrit 33.1 % (42.0-52.0); Hemoglobin 11.2 g/dL (14.0-18.0); Mean Corpuscular HGB Conc 33.8 g/dl (32-36); Mean Corpuscular Hemoglobin 33.9 pg (26-34); Mean Corpuscular Volume 100.3 fl (80-100); Mean Platelet Volume 9.8 fl (7.4-10.4); Platelet Count Result 205 k/mm3 (150-375); White Blood Count 3.8 K/mm3 (4.5-10.0)
[2020-09-24 06:17] LABS: Alanine Aminotransferase 14 U/L (4-50); Albumin Level 3.6 g/dL (3.5-5.1); Alkaline Phosphatase 55 U/L (38-126); Anion Gap 5 mmol/L (8-16); Aspartate Amino Transferase 25 U/L (17-59); Bilirubin,Total 0.7 mg/dL (0.2-1.3); Blood Urea Nitrogen 16 mg/dL (9-20); Calcium 8.5 mg/dL (8.4-10.2); Carbon Dioxide 25 mmol/L (22-30); Chloride 106 mmol/L (98-107); Estimated CRCL calculation 70 ml/min; Estimated Glomerular Filt Rate > 60; Glucose 129 mg/dL (75-110); Magnesium 1.1 mg/dL (1.6-2.3); Potassium 3.4 mmol/L (3.4-5.0); Sodium 136 mmol/L (137-145); Uric Acid 5.6 mg/dL (3.5-8.5)
[2020-09-24 06:28] LABS: Troponin I < 0.012 ng/mL (0.000-0.034)
[2020-09-24 08:00] LABS: Glucose Point of Care 130 (65-105)
[2020-09-24 09:20] LABS: Magnesium 1.1 mg/dL (1.6-2.3)
[2020-09-24] MEDS: ASPIRIN 81 MG CHEWABLE TABLET PO (10:35)
[2020-09-24] MEDS: MAGNESIUM SULFATE 3GM/D5W100ML 3 GM/100 ML BAG IVPB (10:36)
[2020-09-24] MEDS: CHOLECALCIFEROL 1,000 UNITS TABLET 5000 UNITS PO (10:37)
[2020-09-24] MEDS: CLOPIDOGREL BISULFATE 75 MG TABLET PO (10:38)
[2020-09-24] MEDS: FUROSEMIDE 20 MG TABLET PO (10:38)
[2020-09-24] MEDS: ISOSORBIDE MONONITRATE 60 MG TAB.ER.24H PO (10:38)
[2020-09-24] MEDS: METOPROLOL TARTRATE 25 MG TABLET PO ×2 (10:39→21:15)
[2020-09-24] MEDS: PANTOPRAZOLE 40 MG TABLET PO (10:40)
[2020-09-24] MEDS: ROSUVASTATIN 10 MG TABLET 40 MG PO (10:41)
[2020-09-24] MEDS: RANOLAZINE 500 MG TAB.ER.12H 1000 MG PO ×2 (10:41→21:16)
[2020-09-24] MEDS: QUEtiapine FUMARATE 12.5 MG TABLET PO ×2 (10:45→17:47)
[2020-09-24 12:17] LABS: Glucose Point of Care 230 (65-105)
--- NOTE | 2020-09-24 12:50 | PM.IMPN ---
Progress Note: A&P Assessment and Plan (1) Urinary tract infection: Code(s): N39.0 - Urinary tract infection, site not specified Status: Acute Assessment and Plan: Patient is symptomatic with dysuria and suprapubic discomfort. Urinalysis grossly abnormal. Preliminary culture demonstrates E. coli, susceptibilities pending. CT abd/pelvis ordered due to tenderness on exam and demonstrates cystitis. Continue empiric ceftriaxone, adjust antibiotics as indicated once culture results are available Blood cultures obtained (after initiation of antibiotics) and pending (2) Metabolic encephalopathy: Code(s): G93.41 - Metabolic encephalopathy Status: Acute Assessment and Plan: Due to underlying urinary tract infection superimposed on underlying dementia. He has had hallucinations per prior records and RN report. None witnessed during my visit. ABG ordered since pt seemed drowsy and closed eyes frequently during my visit and negative for hypercapnia. Vitamin B12 elevated so cyanocobalamin is held. Reorient as needed Continue fall precautions. Continue treatment of UTI (3) Dementia: Code(s): F03.90 - Unspecified dementia without behavioral disturbance Status: Chronic Assessment and Plan: Patient is a resident at [facility]. Reorient as needed. Attempt to keep calm environment. Continue quetiapine. (4) Chronic anemia: Code(s): D64.9 - Anemia, unspecified Status: Acute Assessment and Plan: Hemoglobin and hematocrit are stable on review of previous labs. (5) Type 2 diabetes mellitus: Code(s): E11.9 - Type 2 diabetes mellitus without complications Status: Acute Assessment and Plan: Hemoglobin A1c was 6.4% in August 2020. Metformin on hold while hospitalized. Continue sliding scale insulin, Accu-Cheks, and hypoglycemic protocol. (6) Chest pain: Code(s): R07.9 - Chest pain, unspecified Status: Acute Assessment and Plan: Patient reported atypical chest pain, on the right side of his chest. Troponin <0.012 x3. [place] unlikely secondary to ACS. Telemetry reviewed without arrhythmia. He has not had any further complaints of chest pain. Continue to monitor (7) Coronary artery disease: Code(s): I25.10 - Atherosclerotic heart disease of [place] coronary artery without angina pectoris Status: Acute Assessment and Plan: With history of multiple stents and CABG remotely. Continue aspirin, Plavix, metoprolol, and statin. Continue Ranexa (8) Hypertension: Code(s): I10 - Essential (primary) hypertension Status: Acute Assessment and Plan: Blood pressures were reviewed and they are reasonably well controlled. Continue metoprolol and lisinopril Continue to monitor and adjust treatment as needed (9) Gout: Code(s): M10.9 - Gout, unspecified Status: Acute Assessment and Plan: Left 1st toe imaging with chronic findings, and patient tells me he had similar findings on the right 1st toe prior to surgery. No acute pain. Uric acid normal. (10) Gastroesophageal reflux disease: Code(s): K21.9 - Gastro-esophageal reflux disease without esophagitis Status: Acute Assessment and Plan: Continue pantoprazole. (11) Peripheral arterial disease: Code(s): I73.9 - Peripheral vascular disease, unspecified Status: Acute Assessment and Plan: CT abd/pelvis demonstrates severe stenosis of left common femoral artery. He has no complaints of pain and no tissue loss. Pedal pulses palpable Continue ASA, plavix, and rosuvastatin Consider outpatient vascular surgery evaluation and AZEEM. Will discuss further with the patient and his . (12) Hypomagnesemia: Code(s): E83.42 - Hypomagnesemia Status: Acute Assessment and Plan: Magnesium 1.1 on AM labs. He was given IV
[2020-09-24] MEDS: INSULIN ASPART (*BKC) 100 UNITS/ML SUB-Q (13:17)
[2020-09-24 13:20] LABS: Alveolar/Arterial O2 Gradient 28.8 mmHg; Base Excess ABG 0.6 mEq/l (+/-2.0); Carboxyhemoglobin 0.3 % THb (0-2.0); Fractional Inspired Oxygen 21 %; HCO3 ABG 23.6 mEq/l (22.0-26.0); Methemoglobin ABG 0.2 %THb (0-1.5); Oxygen Content ABG 15.4 %vol (16.0-22.0); Oxygen Saturation ABG 96.8 % (95.0-100.0); Oxyhemoglobin 94.9 % THb (90.0-100.0); PCO2 ABG 32.5 mmHg (35.0-45.0); Reduced Hemoglobin 4.6 %THb (0-5.0); Total Hemoglobin 11.5 g/dL (12.0-18.0); pH ABG 7.479 (7.350-7.450)
[2020-09-24 13:22] LABS: Device ROOM AIR; Modified Allen's Test Pass; Site Drawn LEFT RADIAL
[2020-09-24 13:24] LABS: Magnesium 1.8 mg/dL (1.6-2.3)
[2020-09-24 17:47] LABS: Glucose Point of Care 109 (65-105)
[2020-09-24] MEDS: lisinopriL 10 MG TABLET PO (17:47)
[2020-09-24] MEDS: QUEtiapine FUMARATE 25 MG TABLET PO (21:16)
[2020-09-24 21:45] LABS: Glucose Point of Care 141 (65-105)
[2020-09-25] VITALS: PULSE 90
--- NOTE | 2020-09-25 00:23 | PC.NURSE ---
when doing 21:00 med pass this patient was hard to arouse and when he was awake he was not making sense verbally, and continued to growl and spit. He said he was ready for medicine and we attempted one pill at a time, which he proceed to spit across the room. The other medications could be crushed so I went ahead and disguised them in some applesauce. Every time you attempt to give him a drink he would bite and snap at you, he also grabs arms and twists if allowed to, it took 2 people to just get his blood sugar. His eyedrops made him think he was crying and he does not follow commands at all. -MACK RN
--- NOTE | 2020-09-25 02:37 | ECG_ITS ---
Measurements Intervals [place] Rate: 85 P: 31 ME: 163 QRS: -11 QRSD: 93 T: 31 QT: 387 QTc: 461 Interpretive Statements SINUS RHYTHM INCOMPLETE RIGHT BUNDLE BRANCH BLOCK INFERIOR INFARCT, AGE INDETERMINATE ABNORMAL ECG Electronically Signed On 09-25-2020 6:54:13 CDT by Ruddy Carrillo D.O.
[2020-09-25 03:20] LABS: Basophils Percent Auto 0.5 % (0.2-1.2); Eosinophils Absolute Auto 0.1 K/mm3 (0-0.3); Eosinophils Percent Auto 2.3 % (0-4.4); Hematocrit 32.9 % (42.0-52.0); Hemoglobin 11.3 g/dL (14.0-18.0); Immature Granulocyte Absolute 0.01 K/mm3 (0.00-0.031); Immature Granulocyte Percent A 0.3 % (0-0.5); Immature Platelet Fraction Pct 2.9 % (0.9-11.2); Lymphocytes Absolute Auto 0.82 K/mm3 (0.9-3.2); Lymphocytes Percent Auto 21.1 % (18.3-44.2); Mean Corpuscular HGB Conc 34.3 g/dl (32-36); Mean Corpuscular Volume 101.9 fl (80-100); Mean Platelet Volume 10.6 fl (7.4-10.4); Monocytes Absolute Auto 0.4 K/mm3 (0.1-0.6); Monocytes Percent Auto 10.6 % (2.6-8.5); Neutrophils Absolute Auto 2.5 K/mm3 (1.3-6.7); Neutrophils Percent Auto 65.2 % (45.5-73.1); Platelet Count Result 193 k/mm3 (150-375); Red Blood Count 3.23 M/mm3 (4.6-6.20); Red Cell Distribution Width 12.1 % (11.5-14.5); White Blood Count 3.9 K/mm3 (4.5-10.0)
[2020-09-25 03:34] LABS: Alanine Aminotransferase 15 U/L (4-50); Albumin Level 3.3 g/dL (3.5-5.1); Alkaline Phosphatase 51 U/L (38-126); Anion Gap 7 mmol/L (8-16); Aspartate Amino Transferase 27 U/L (17-59); Bilirubin,Total 0.5 mg/dL (0.2-1.3); Blood Urea Nitrogen 14 mg/dL (9-20); Calcium 8.2 mg/dL (8.4-10.2); Carbon Dioxide 24 mmol/L (22-30); Chloride 106 mmol/L (98-107); Estimated CRCL calculation 77 ml/min; Estimated Glomerular Filt Rate > 60; Glucose 125 mg/dL (75-110); Magnesium 1.6 mg/dL (1.6-2.3); Potassium 3.7 mmol/L (3.4-5.0); Sodium 137 mmol/L (137-145)
[2020-09-25 04:00] VITALS: PULSE 118
[2020-09-25 05:01] LABS: Folic Acid 8.4 ng/mL (2.76->20)
[2020-09-25 06:00] VITALS: BP 133/75; PULSE 82; RESP 18; TEMP 36.3; O2SAT 99
[2020-09-25 08:00] VITALS: PULSE 95
[2020-09-25 08:18] LABS: Glucose Point of Care 113 (65-105)
[2020-09-25] MEDS: ASPIRIN 81 MG CHEWABLE TABLET PO (08:54)
[2020-09-25] MEDS: CHOLECALCIFEROL 1,000 UNITS TABLET 5000 UNITS PO (08:55)
[2020-09-25 08:56] VITALS: PULSE 112
[2020-09-25] MEDS: FUROSEMIDE 20 MG TABLET PO (08:56)
[2020-09-25] MEDS: CLOPIDOGREL BISULFATE 75 MG TABLET PO (08:56)
[2020-09-25] MEDS: METOPROLOL TARTRATE 25 MG TABLET PO (08:56)
[2020-09-25] MEDS: ISOSORBIDE MONONITRATE 60 MG TAB.ER.24H PO (08:56)
[2020-09-25] MEDS: PANTOPRAZOLE 40 MG TABLET PO (08:57)
[2020-09-25] MEDS: QUEtiapine FUMARATE 12.5 MG TABLET PO ×2 (08:57→17:20)
[2020-09-25] MEDS: RANOLAZINE 500 MG TAB.ER.12H 1000 MG PO (08:57)
[2020-09-25] MEDS: ROSUVASTATIN 10 MG TABLET 40 MG PO (08:58)
[2020-09-25 12:02] LABS: Glucose Point of Care 165 (65-105)
--- NOTE | 2020-09-25 13:19 | PM.DS ---
DS: Admitting Diagnosis Admitting Diagnosis Admitting Diagnosis: Altered mental status, UTI DS: Discharge Diagnosis Discharge Diagnosis (1) Urinary tract infection: Code(s): N39.0 - Urinary tract infection, site not specified Status: Acute Assessment and Plan: Discharge Summary (Date of service 09/25/20): Mr. Hoang is an 80 y.o. male with PMH significant for dementia, coronary artery disease, diabetes, hypertension, and several other comorbidities who presented to the emergency department on 09/23/20 for the evaluation of altered mental status and confusion. The staff at [facility] noted that the patient was becoming increasingly confused from his baseline with more weakness and two falls in which he did not suffer any injuries. He also complained of chest pain to staff at [facility] but he did not have any complaints of chest pain on arrival. He noted dysuria and had suprapubic discomfort. Vitals were notable for low-grade temperature of 100F and mild tachycardia 111. Workup was notable for grossly abnormal urinalysis. CXR demonstrated mild streaky opacities at medial left lung base favoring atelectasis over pneumonia. Foot xray demonstrated old healed distal left tibial and fibular fractures with screw fixation, polyarticular osteoarthritis at left foot and ankle, and dystrophic calcifications in the soft tissue with known underlying gout and normal uric acid. CT brain demonstrated a normal aging brain. He was treated with IV ceftriaxone for a urinary tract infection and admitted to the hospitalist service for further care. Blood cultures were obtained after he had already received IV antibiotics with preliminary cultures demonstrating no growth to date. Final cultures will be followed. Acute metabolic encephalopathy was felt secondary to urinary tract infection and improved with antibiotic therapy. CT abd/pelvis ordered due to tenderness on exam and demonstrated cystitis. Urine culture demonstrated E. coli which was susceptible to ceftriaxone. His mental status returned to baseline and he was afebrile. He no longer required inpatient care. He was discharged on oral cefdinir to complete a 10 day course. Worrisome signs and symptoms which would warrant return to the emergency department were discussed. I did call his to discuss all discharge instructions and answer any questions as well. (2) Metabolic encephalopathy: Code(s): G93.41 - Metabolic encephalopathy Status: Resolved Assessment and Plan: Resolved. Due to underlying urinary tract infection superimposed on underlying dementia. He had hallucinations initially per prior records and RN report which resolved. ABG ordered 09/24 since pt seemed drowsy and closed eyes frequently during my visit and negative for hypercapnia. Vitamin B12 elevated so cyanocobalamin is held. This resolved with the treatment of his UTI and he was back to his baseline. (3) Dementia: Code(s): F03.90 - Unspecified dementia without behavioral disturbance Status: Chronic Assessment and Plan: Patient is a resident at [facility]. Quetiapine was continued and he was reoriented as needed. (4) Chronic anemia: Code(s): D64.9 - Anemia, unspecified Status: Acute Assessment and Plan: Hemoglobin and hematocrit are stable on review of previous labs. (5) Type 2 diabetes mellitus: Code(s): E11.9 - Type 2 diabetes mellitus without complications Status: Acute Assessment and Plan: Hemoglobin A1c was 6.4% in August 2020. Metformin was held while hospitalized and resumed at discharge. (6) Chest pain: Code(s): R07.9 - Chest pain, unspecified Status: Resolved Assessment and Plan: Resolved. Patient reported atypical chest pain, on the right side of his chest. Troponin <0.012 x3. [place] unlikely secondary to ACS. Telemetry reviewed without arrhythmia. He has not had
[2020-09-25 14:00] VITALS: BP 111/62; PULSE 110; RESP 18; TEMP 36.8; O2SAT 95
[2020-09-25 17:07] LABS: Glucose Point of Care 161 (65-105)
[2020-09-25 17:07] LABS: SARS-CoV-2 RNA PCR Negative
[2020-09-25] MEDS: lisinopriL 10 MG TABLET PO (17:20)
--- NOTE | 2020-10-01 15:40 | PC.NURSE ---
Blood cx are negative
== END 2020-09-25 18:20 | DRG 689 ==
LOC: ANHED 13:37 → ANH3MEDSUR 14:07
PROVIDERS: Internal Medicine; Physician Assistant; Admitting Provider Internal Medicine; Emergency Provider Emergency Medicine; PCP Internal Medicine; Visit Provider Family Medicine
DX: N39.0 Urinary tract infection, site not specified (principal); G93.41 Metabolic encephalopathy; B96.20 Unspecified Escherichia coli [E. coli] as the cause of diseases classified elsewhere; Z20.822 Contact with and (suspected) exposure to COVID-19; F03.90 Unspecified dementia, unspecified severity, without behavioral disturbance, psychotic disturbance, mood disturbance, and anxiety; D64.9 Anemia, unspecified; E11.51 Type 2 diabetes mellitus with diabetic peripheral angiopathy without gangrene; R07.89 Other chest pain; I25.10 Atherosclerotic heart disease of native coronary artery without angina pectoris; I10 Essential (primary) hypertension; M10.9 Gout, unspecified; K21.9 Gastro-esophageal reflux disease without esophagitis; E83.42 Hypomagnesemia; G47.33 Obstructive sleep apnea (adult) (pediatric); E78.5 Hyperlipidemia, unspecified; N40.0 Benign prostatic hyperplasia without lower urinary tract symptoms; R29.6 Repeated falls; Z79.82 Long term (current) use of aspirin; Z79.84 Long term (current) use of oral hypoglycemic drugs; Z79.899 Other long term (current) drug therapy; Z95.1 Presence of aortocoronary bypass graft; Z95.5 Presence of coronary angioplasty implant and graft
CPT/HCPCS: 36415; 36600; 70450; 71046; 73630; 74177; 80053; 81001; 82375; 82607; 82746; 82805; 83050; 83735; 84443; 84484; 84550; 85025; 85027; 85055; 85652; 86140; 87040; 87077; 87086; 87088; 87186; 93005; 96361; 96365; 96375; 97116; 97161; 97165; 97530; 97535; 99285; A9270; C9803; G0378; J0131; J0696; J1815; J3475; J7030; Q9967; U0003; U0005

== ENCOUNTER 2021-02-26 15:07 | Observation (INO) | payer MEDICARE, SELFPAY ==
[2021-02-26] VITALS (9 sets, daily range): BP systolic 131–147; BP diastolic 62–90; PULSE 70–87; RESP 16–18; TEMP 36.1–36.6; O2SAT 100; BMI 32.1
--- NOTE | ~2021-02-26 | US_ITS ---
EXAMINATION: US carotid duplex BI EXAM DATE: 02/27/2021 12:21 INDICATION: Syncope. TECHNIQUE: Grayscale, color and pulsed Doppler images of the cervical carotid arteries were obtained . The degree of vessel stenosis is placed in one of the following categories: normal, <50% stenosis, 50-69% stenosis, >=70% stenosis but less than near-occlusion, near-occlusion, or occlusion. Note that percent stenosis relative to normal distal artery lumen diameter is indirectly measured from velocit y measurements as described by Javier, et al. Radiology 2003; 229:340-346. Comparison is made to prior examination from 09/01/2020. FINDINGS: RIGHT SIDE: Right common carotid artery peak systolic velocity (PSV in cm/s): 86 Right bulb/internal carotid artery peak systolic velocity (PSV in cm/s): 65 Right internal carotid artery end diastolic velocity (EDV in cm/s): 9 Right ICA/CCA peak systolic ratio: 0.7 Right external carotid artery peak systolic velocity (PSV in cm/s): 115 Right vertebral artery antegrade flow: yes There is mild carotid bulb plaque. Velocity and Doppler waveforms in the common and internal carotid arteries is normal. LEFT SIDE: Left common carotid artery peak systolic velocity (PSV in cm/s): 60 Left bulb/internal carotid artery peak systolic velocity (PSV in cm/s): 85 Left internal carotid artery end diastolic velocity (EDV in cm/s): 15 Left ICA/CCA peak systolic ratio: 1.4 Left external carotid artery peak systolic velocity (PSV in cm/s): 141 Left vertebral artery antegrade flow: yes There is mild to moderate carotid bulb plaque. Velocity and Doppler waveforms in the common and internal carotid arteries is normal. IMPRESSION: 1. Less than 50 percent stenosis in the right internal carotid artery. 2. Less than 50 percent stenosis in the left internal carotid artery. > Reviewed, dictated and finalized at location A.
--- NOTE | ~2021-02-26 | CT_ITS ---
EXAMINATION: CT brain wo con, CT cervical spine wo con EXAM DATE: 02/26/2021 16:52 (accession [id number]), 02/26/2021 16:53 (accession [id number]) INDICATION: Fall, head injury. TECHNIQUE: Spiral CT of the head was performed without contrast. Axial, coronal and sagittal images were reviewed. Spiral CT of the cervical spine was performed without contrast. Axial images were rev iewed. Coronal and sagittal reformatted images were also reviewed. The dose-length product (DLP) fo r this examination was 681.00 (accession [id number]), 498.15 (accession [id number]) mGy-cm. The exposure was tailored according to patient size, and iterative reconstruction (ASIR) was used as additional dose reduction technique. Comparison is made to prior examination from 09/23/2020. FINDINGS: HEAD CT: There is no acute intraparenchymal hemorrhage. No evidence of intraparenchymal brain mass l esion. No evidence of acute infarction. There is mild periventricular and subcortical hypodensity, n onspecific but probably related to small vessel ischemic disease. There is moderate prominence of t he sulci and ventricles related to cerebral atrophy. There is no mass effect or midline shift. The re is no obstructive hydrocephalus suspected. There are no extra-axial collections. There are no ac [place] calvarial fractures. The orbits are unremarkable. Soft tissue is unremarkable. The visualized sinuses and mastoid air cells are well aerated. CERVICAL CT: There is no evidence of acute cervical fracture. The odontoid process is intact. Pre-d ens space is normal. Prevertebral soft tissue is normal. There are no soft tissue abnormalities barbara ntified. There is no disc space widening or traumatic vertebral body subluxation suspected. Overall moderate cervical spondylosis. A detailed level by level evaluation of spondylosis can be added as addendum if requested. IMPRESSION: 1. No acute intracranial findings or cervical fracture. 2. Age-related intracranial findings. 3. Cervical spondylosis. Reviewed, dictated and finalized at location A. IMPRESSION: 1. No acute intracranial findings or cervical fracture. 2. Age-related intracranial findings. 3. Cervical spondylosis.
--- NOTE | ~2021-02-26 | XR_ITS ---
XR chest 1V 02/26/2021 16:26 Indication: Altered mental status Procedure: AP view of the chest Comparison: Comparison to multiple prior studies sequentially, with oldest reviewed study dated 08/31. Findings: Chronic bibasilar scarring. Cardiomegaly. Status post median sternotomy for CABG. No focal pneumonia, edema, significant effusion or pneumothorax. 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 No acute osseous abnormality. Impression: 1: No acute cardiopulmonary disease. Reviewed, dictated and finalized at location A. Impression: 1: No acute cardiopulmonary disease.
--- NOTE | ~2021-02-26 | XR_ITS ---
XR knee RT 3V, XR knee LT 3V 02/26/2021 16:24 Indication: Status post fall. Bilateral knee pain. Procedure: 3 views of each knee Comparison: No prior studies for comparison. Findings: Small bilateral knee effusions. Extensive vascular calcification. There is anatomic alignme nt bilaterally. No there is mild right patellofemoral compartment osteoarthritis. No acute fracture o r traumatic malalignment. No foreign bodies. Impression: 1: Small knee effusions. 2: No acute fracture. Reviewed, dictated and finalized at location A. Impression: 1: Small knee effusions. 2: No acute fracture. Impression: 1: Small knee effusions. 2: No acute fracture.
--- NOTE | ~2021-02-26 | US_ITS ---
EXAMINATION:US venous doppler LE LT INDICATION:Left lower extremity swelling TECHNIQUE: Multiple grayscale, color flow and Doppler images of the left lower extremity deep venous systems were obtained and reviewed. COMPARISON:09/01/2020 FINDINGS: The common femoral, superficial femoral and popliteal veins demonstrate normal respiratory variation, augmentation and compressibility. Color flow is also seen within the posterior tibial, pe roneal, greater saphenous and profunda veins. IMPRESSION: 1: No lower extremity deep venous thrombosis. Reviewed, dictated and finalized at location A.
--- NOTE | 2021-02-26 15:54 | ECG_ITS ---
Measurements Intervals [place] Rate: 71 P: 31 [place]: 200 QRS: -21 QRSD: 92 T: 211 QT: 407 QTc: 443 Interpretive Statements SINUS RHYTHM BORDERLINE AV CONDUCTION DELAY INFERIOR INFARCT, AGE INDETERMINATE BORDERLINE T WAVE ABNORMALITY- HIGH LATERAL LEADS BASELINE ARTIFACT- I, II, III, AVR, AVL, AVF, V1-V6 ABNORMAL ECG Electronically Signed On 02-26-2021 16:11:58 CDT by Ruddy Carrillo D.O.
[2021-02-26 16:07] LABS: Basophils Percent Auto 0.4 % (0.2-1.2); Eosinophils Absolute Auto 0.2 K/mm3 (0-0.3); Eosinophils Percent Auto 3.6 % (0-4.4); Hematocrit 34.8 % (42.0-52.0); Hemoglobin 11.5 g/dL (14.0-18.0); Immature Granulocyte Absolute 0.02 K/mm3 (0.00-0.031); Immature Granulocyte Percent A 0.4 % (0-0.5); Lymphocytes Absolute Auto 1.01 K/mm3 (0.9-3.2); Lymphocytes Percent Auto 22.5 % (18.3-44.2); Mean Corpuscular Hemoglobin 33.3 pg (26-34); Mean Corpuscular Volume 100.9 fl (80-100); Mean Platelet Volume 9.6 fl (7.4-10.4); Monocytes Absolute Auto 0.5 K/mm3 (0.1-0.6); Monocytes Percent Auto 10.7 % (2.6-8.5); Neutrophils Absolute Auto 2.8 K/mm3 (1.3-6.7); Neutrophils Percent Auto 62.4 % (45.5-73.1); Platelet Count Result 195 k/mm3 (150-375); Red Blood Count 3.45 M/mm3 (4.6-6.20); Red Cell Distribution Width 12.5 % (11.5-14.5); White Blood Count 4.5 K/mm3 (4.5-10.0)
[2021-02-26 16:11] LABS: Glucose Point of Care 122 mg/dl (65-105)
[2021-02-26 16:20] LABS: Anion Gap 5 mmol/L (8-16); Blood Urea Nitrogen 16 mg/dL (9-20); Calcium 9.3 mg/dL (8.4-10.2); Carbon Dioxide 30 mmol/L (22-30); Chloride 102 mmol/L (98-107); Estimated CRCL calculation 64 ml/min; Estimated Glomerular Filt Rate > 60; Glucose 109 mg/dL (65-110); Potassium 3.8 mmol/L (3.4-5.0); Sodium 137 mmol/L (137-145)
--- NOTE | 2021-02-26 17:22 | ED.GENADULT ---
HPI - General Adult General Chief complaint: Fall Stated complaint: fall Time Seen by Provider: 02/26/21 15:25 Source: patient, EMS and RN notes reviewed Mode of arrival: EMS Limitations: no limitations History of Present Illness HPI narrative: Patient is an 80-year-old male who presents to emergency department today notes that he was sitting on the edge of his bed at home when he blacked out. Patient presented after which by EMS complains of bilateral knee pain also has injury to the forehead notes mild pain to the head neck and up across the upper back. Patient denies recent illness or other complaints does not appear distressed upon arrival does have a flat affect on questioning notes that he lives with his in a usp apartment Related Data Home Medications Medication Instructions Recorded Confirmed artificial tears solution 1 drp OPHTHALMIC (EYE) QID 08/31/20 09/23/20 aspirin 81 mg PO DAILY 08/31/20 09/23/20 cholecalciferol (vitamin D3) 25 mcg PO DAILY 08/31/20 09/23/20 [Vitamin D3] clopidogrel [Plavix] 75 mg PO DAILY 08/31/20 09/23/20 cyanocobalamin (vitamin B-12) 500 mcg PO QPM 08/31/20 09/23/20 isosorbide mononitrate 60 mg PO DAILY 08/31/20 09/23/20 lisinopril 10 mg PO QPM 08/31/20 09/23/20 metformin 500 mg PO BID 08/31/20 09/23/20 metoprolol tartrate 25 mg PO BID 08/31/20 09/23/20 nitroglycerin 0.4 mg SUBLINGUAL USEASDIRECTD PRN 08/31/20 09/23/20 pantoprazole 40 mg PO QAM 08/31/20 09/23/20 polyethylene glycol 3350 [Miralax] 17 g PO DAILY PRN 08/31/20 09/23/20 ranolazine [Ranexa] 1,000 mg PO Q12H 08/31/20 09/23/20 rosuvastatin [Crestor] 40 mg PO DAILY 08/31/20 09/23/20 vit C-vit [id number] 1 cap PO DAILY 08/31/20 09/23/20 acetaminophen 650 mg PO Q6H PRN MDD 4 gm 09/23/20 09/23/20 diclofenac sodium [Voltaren] 4 g TOPICAL QID PRN 09/23/20 09/23/20 furosemide 20 mg PO DAILY 09/23/20 09/23/20 guaifenesin 600 mg PO BID PRN 09/23/20 09/23/20 loperamide 2 mg PO Q6H PRN 09/23/20 09/23/20 quetiapine [Seroquel] 25 mg PO BID 09/23/20 09/23/20 quetiapine [Seroquel] 50 mg PO HS 09/23/20 09/23/20 atorvastatin 40 mg PO HS 02/26/21 magnesium oxide 400 mg PO DAILY 02/26/21 pantoprazole 20 mg PO QAM 02/26/21 Allergies Allergy/AdvReac Type Severity Reaction Status Date / Time ketorolac [From Toradol] Allergy Swelling Verified 09/23/20 17:00 Review of Systems Review of Systems: All systems reviewed & are unremarkable except as noted in HPI and below PMFSH Past Medical History Medical History Anxiety Benign prostatic hyperplasia Chronic anemia Coronary artery disease History of multiple stents over the years and 4 vessel bypass in 1984. Dementia Gastroesophageal reflux disease Glaucoma Gout History of peptic ulcer disease Hyperlipidemia Hypertension Obstructive sleep apnea Peripheral arterial disease Type 2 diabetes mellitus Hemoglobin A1c was 6.4% on 09/01/2020. Surgical History Surgical History History of appendectomy History of colonoscopy with polypectomy History of coronary angioplasty with insertion of stent Multiple stents placed over the years. History of coronary artery bypass graft 4 vessel bypass on 05/30/[address] Downey at [facility]. History of orthopedic surgery Pinning of left fracture in the 1960s. History of toe surgery Right 1st toe surgery, patient states related to chronic gout. Family History Family History Mother Cancer Father Cancer Social History Social History Social History: The patient is . He is now a resident at [facility]. His still lives in [place]. The patient tells me that he had 5 children. He was in the [employer] and retired from [employer]. Lifelong nonsmoker. No alcohol or illicit subst
[2021-02-26 17:56] LABS: Add Urine Microscopic? NO; Appearance Urine Clear (Clear); Bilirubin Urine Negative (Negative); Blood Urine Negative (Negative); Color Urine Yellow (Yellow); Glucose Urine UA Negative (Negative); Ketones Urine Negative (Negative); Leukocyte Esterase Ur Negative LEU/UL (Negative); Nitrate Urine Negative (Negative); Protein Urine Negative (Negative); Specific Grav Ur 1.011 (1.001-1.035); Urobilinogen Urine Negative mg/dL (<2.0)
[2021-02-26 18:42] LABS: Prothrombin Time 12.6 Seconds (11.1-14.7)
[2021-02-26 18:43] LABS: Partial Thromboplastin Time 28.5 SECONDS (22.3-36.8)
[2021-02-26 18:45] LABS: Lactic Acid Reflex 1.1 mmol/L (0.7-2.1)
[2021-02-26 19:21] LABS: Alanine Aminotransferase 16 U/L (4-50); Albumin Level 3.7 g/dL (3.5-5.1); Alkaline Phosphatase 61 U/L (38-126); Aspartate Amino Transferase 25 U/L (17-59); Bilirubin,Total 0.6 mg/dL (0.2-1.3); CRP < 0.5 mg/dL (<1.0); Lipase 53 U/L (23-300)
[2021-02-26 19:30] LABS: Troponin I < 0.012 ng/mL (0.000-0.034)
--- NOTE | 2021-02-26 20:20 | PM.IMHP ---
H&P: HPI History of Present Illness Date/Time: 02/26/21 20:20 Chief Complaint: Syncope Narrative: Patient is an 80-year-old male who presents to emergency department today after he blacked out and fell and hit his head. He is a poor historian and he recollects nothing. On my evaluation he is confused and thinks he is in the facility. He asked for Tabatha who is in room 12 suspect 1 of the residents in [facility]. He is not able to provide me any history of what happened and most of the history is taken from medical records. Per EMS record he fell 2 times today patient stated he tripped and fell with no loss of consciousness and had a small laceration to his head. He was complaining of some pain in his right shoulder and lower back. Vitals on site was unremarkable. His skeletal survey has been negative in the ER so does his CT head. He is admitted for further evaluation and management under observation status Review of Systems Review of Systems: ROS unobtainable: Yes unobtainable due to medical condition and unobtainable due to mental status Neurologic: Reports weakness Endocrine: Endocrine: Reports fatigue PMFSH Past Medical History Medical History Anxiety Benign prostatic hyperplasia Chronic anemia Coronary artery disease History of multiple stents over the years and 4 vessel bypass in 1984. Dementia Gastroesophageal reflux disease Glaucoma Gout History of peptic ulcer disease Hyperlipidemia Hypertension Obstructive sleep apnea Peripheral arterial disease Type 2 diabetes mellitus Hemoglobin A1c was 6.4% on 09/01/2020. Surgical History Surgical History History of appendectomy History of colonoscopy with polypectomy History of coronary angioplasty with insertion of stent Multiple stents placed over the years. History of coronary artery bypass graft 4 vessel bypass on 05/30/[address] Downey at [facility]. History of orthopedic surgery Pinning of left fracture in the 1960s. History of toe surgery Right 1st toe surgery, patient states related to chronic gout. Family History Family History Mother Cancer Father Cancer Social History Social History Social History: The patient is . He is now a resident at [facility]. His still lives in [place]. The patient tells me that he had 5 children. He was in the [employer] and retired from [employer]. Lifelong nonsmoker. No alcohol or illicit substance use. His Zehra and daughter Chantelle Menard are his emergency contact. Code status: Do not resuscitate. Smoking status: Never smoker Alcohol intake: former Substance use: never Sexual Orientation (if Verbalized by the Patient): Straight or Heterosexual Spiritual care concerns: No Meds Home Medications and Allergies Home Medications Medication Instructions Recorded Confirmed Type artificial tears solution 1 drp OPHTHALMIC (EYE) QID 08/31/20 02/26/21 History aspirin 81 mg PO DAILY 08/31/20 02/26/21 History cholecalciferol (vitamin D3) 25 mcg PO DAILY 08/31/20 02/26/21 History [Vitamin D3] clopidogrel [Plavix] 75 mg PO DAILY 08/31/20 02/26/21 History isosorbide mononitrate 60 mg PO DAILY 08/31/20 02/26/21 History lisinopril 10 mg PO QPM 08/31/20 02/26/21 History metformin 500 mg PO BID 08/31/20 02/26/21 History metoprolol tartrate 25 mg PO BID 08/31/20 02/26/21 History nitroglycerin 0.4 mg SUBLINGUAL USEASDIRECTD PRN 08/31/20 02/26/21 History polyethylene glycol 3350 [Miralax] 17 g PO DAILY PRN 08/31/20 02/26/21 History ranolazine [Ranexa] 1,000 mg PO Q12H 08/31/20 02/26/21 History diclofenac sodium [Voltaren] 4 g TOPICAL QID PRN 09/23/20 02/26/21 History furosemide 20 mg PO DAILY 09/23/20 02/26/21 History guaifenesin
[2021-02-27] VITALS (13 sets, daily range): BP systolic 127–153; BP diastolic 79–90; PULSE 74–98; RESP 18–20; TEMP 35.7–36.7; O2SAT 96–100
--- NOTE | 2021-02-27 | ECHO_ITS ---
Patient Info Name: Franky Lal Age: 80 years : 1940 Gender: Male Ht: 72 in Wt: 236 lbs BSA: 2.36 m2 HR: 106 bpm BP: 127 / 80 mmHg Technical Quality: Good Exam Date: 02/27/2021 8:29 AM Exam Location: [facility] Patient Status: Inpatient Admit Date: 02/26/2021 Staff Ordering Physician: Maco Gutierrez MD Book Author: Yohana Garber RDCS Attending Provider: Maco Gutierrez MD Exam Type: CA echo doppler color flow Study Info Indications R55 - Syncope and collapse Complete two-dimensional, color flow and Doppler transthoracic echocardiogram is performed. Summary 1. Complete two-dimensional, color flow and Doppler transthoracic echocardiogram is performed. 2. Left ventricular systolic function is normal, estimated at 60-65%. 3. There is mildly increased left ventricular wall thickness. 4. The left ventricular diastolic function is grade I diastolic dysfunction. 5. Right ventricular systolic function is mildly reduced. Positive Camacho's sign. Suggest to rule out pulmonary embolism. 6. Left atrial chamber dimension is moderately enlarged. 7. There is severe aortic valve sclerosis. No aortic valve stenosis. 8. There is mild tricuspid valve regurgitation. 9. No pulmonary hypertension, estimated pulmonary arterial systolic pressure is 25 mmHg. 10. There is mild pulmonic regurgitation. Left Ventricle Left ventricular chamber dimension is normal. Left ventricular systolic function is normal, estimated at 60-65%. There is mildly increased left ventricular wall thickness. Left ventricular septal wall motion is normal. The left ventricular diastolic function is grade I diastolic dysfunction. Global longitudinal strain is normal at -17 %. Right Ventricle Right ventricular chamber dimension is normal. Right ventricular systolic function is mildly reduced. Positive Camacho's sign. Suggest to rule out pulmonary embolism. Left Atria Left atrial chamber dimension is moderately enlarged. Right Atria Right atrial chamber dimension is normal. Atrial Septum Intact interatrial septum visualized by color flow imaging. Aortic Valve The aortic valve is trileaflet. There is severe aortic valve sclerosis. No aortic valve stenosis. There is no aortic valve stenosis. There is no aortic valve regurgitation. Pulmonic Valve The pulmonic valve is normal. There is no pulmonic valve stenosis. There is mild pulmonic regurgitation. Mitral Valve The mitral valve has normal leaflets. There is no mitral valve stenosis. There is no mitral valve regurgitation. Tricuspid Valve The tricuspid valve leaflets are normal. There is no significant tricuspid valve stenosis. There is mild tricuspid valve regurgitation. No pulmonary hypertension, estimated pulmonary arterial systolic pressure is 25 mmHg. Pericardium/Pleural The pericardium appears normal. There is no pericardial effusion. Inferior Vena Cava Normal inferior vena cava with >50% collapse upon inspiration consistent with Empty right atrial pressure, 5 mmHg. Aorta The aortic root size at the sinus of Valsalva is normal. The prox ascending aorta size is normal. Left Ventricular Outflow Tract Name Value Normal LVOT 2D LVOT
[2021-02-27] MEDS: QUEtiapine FUMARATE 25 MG TABLET 50 MG PO ×2 (02:28→22:35)
[2021-02-27] MEDS: ATORVASTATIN 40 MG TABLET PO ×2 (02:29→22:34)
[2021-02-27 08:16] LABS: Vitamin D 25 Hydroxy 47.2 ng/mL
[2021-02-27 08:22] LABS: Folic Acid 5.6 ng/mL (2.76->20)
[2021-02-27 08:46] LABS: Glucose Point of Care 159 mg/dl (65-105)
[2021-02-27] MEDS: MULTIVITAMINS /C LUTEIN (CENTRUM SILVER) TABLET *BKC 1 TAB PO (09:15)
[2021-02-27] MEDS: QUEtiapine FUMARATE 25 MG TABLET PO ×2 (09:15→15:30)
[2021-02-27] MEDS: ARTIFICIAL TEARS OPHTH SOLN 15 ML BOTTLE 1 DROP EACH EYE ×4 (09:16→22:35)
[2021-02-27] MEDS: metFORMIN HCL 500 MG TABLET PO ×2 (09:16→17:30)
[2021-02-27] MEDS: CLOPIDOGREL BISULFATE 75 MG TABLET PO (09:16)
[2021-02-27] MEDS: CHOLECALCIFEROL 1,000 UNITS TABLET 1000 UNITS PO (09:16)
[2021-02-27] MEDS: MAGNESIUM OXIDE 400 MG TABLET PO (09:16)
[2021-02-27] MEDS: ISOSORBIDE MONONITRATE 60 MG TAB.ER.24H PO (09:17)
[2021-02-27] MEDS: CYANOCOBALAMIN 500 MCG TABLET PO (09:17)
[2021-02-27] MEDS: METOPROLOL TARTRATE 25 MG TABLET PO ×2 (09:17→22:34)
[2021-02-27] MEDS: RANOLAZINE 500 MG TAB.ER.12H 1000 MG PO ×2 (09:17→22:35)
[2021-02-27] MEDS: PANTOPRAZOLE SOD SESQUIHYDRATE 20 MG TAB PO (09:17)
[2021-02-27] MEDS: ASPIRIN 81 MG CHEWABLE TABLET PO (09:17)
--- NOTE | 2021-02-27 10:28 | PCPTNOTE ---
Attempted PT eval. Pt with OT. Will try again later.
[2021-02-27 12:04] LABS: Glucose Point of Care 140 mg/dl (65-105)
--- NOTE | 2021-02-27 16:17 | P.PNIM_ITS ---
Progress Note: A&P Assessment and Plan (1) Dementia: Code(s): F03.90 - Unspecified dementia without behavioral disturbance Status: Chronic Assessment and Plan: * Resident of [facility] * Continue Seroquel 50 mg at night and 25 mg p.o. b.i.d. (2) Syncope: Code(s): R55 - Syncope and collapse Status: Acute Assessment and Plan: * Syncopal episode noted last night * Carotid Dopplers are negative * Bilateral lower extremity Dopplers negative for DVT * Echo shows 60 65% with mildly increased left ventricular wall thickness and grade 1 diastolic dysfunction * orthostatic blood pressures are negative * Vitamin B12: 813, TSH 3.60 normal * Tele monitor- (3) Hyperlipidemia: Code(s): E78.5 - Hyperlipidemia, unspecified Status: Chronic Assessment and Plan: * Continue atorvastatin 40 mg p.o. at night (4) Recurrent falls: Code(s): R29.6 - Repeated falls Status: Acute Assessment and Plan: * Instructed patient to take slow and change positions slowly * Workup is negative (5) Benign prostatic hyperplasia: Code(s): N40.0 - Benign prostatic hyperplasia without lower urinary tract symptoms Status: Acute Assessment and Plan: * Continue home medications * Strict I&Os * Monitor output * Consider post residual void if needed (6) Gastroesophageal reflux disease: Code(s): K21.9 - Gastro-esophageal reflux disease without esophagitis Status: Acute Assessment and Plan: * Continue home medications (7) Head injury: Code(s): S09.90XA - Unspecified injury of head, initial encounter Status: Acute Assessment and Plan: * Laceration noted on hairline above left eyebrow * CT negative for bleed * Keep wound clean * Dressed with butterfly (8) DM2 (diabetes mellitus, type 2): Code(s): E11.9 - Type 2 diabetes mellitus without complications Status: Chronic Assessment and Plan: * Glucose 109 on labs currently 140 * A1c 6.4 09/01/20 * Carb consistent diabetic diet * Continue home medications * Accu-Cheks AC and HS * Insulin sliding scale * Hypoglycemic protocol (9) CAD (coronary artery disease): Code(s): I25.10 - Atherosclerotic heart disease of [place] coronary artery without angina pectoris Status: Chronic Assessment and Plan: * History of stents and CABG * Continue 81 mg aspirin * Plavix 70 mg daily (10) Obstructive sleep apnea: Code(s): G47.33 - Obstructive sleep apnea (adult) (pediatric) Status: Chronic Assessment and Plan: * Continue with home settings using her machine (11) Hypertension: Code(s): I10 - Essential (primary) hypertension Status: Acute Assessment and Plan: * Continue home medications * Current blood pressure 142/83 * Trend blood pressure * Adjust medications as needed Time Spent With Patient Time with patient: 25 - 35 minutes Subjective Date/time seen: 02/27/21 14:15 Interval history: Patient is an 6-year-old male who is here for syncope. Patient states that he feels better he has no complaints of chest pain or shortness of breath. He did state that his left wrist does hurt. He was sitting on the side of t
--- NOTE | 2021-02-27 16:17 | PM.IMPN ---
Progress Note: A&P Assessment and Plan (1) Dementia: Code(s): F03.90 - Unspecified dementia without behavioral disturbance Status: Chronic Assessment and Plan: Resident of memory care center Continue Seroquel 50 mg at night and 25 mg p.o. b.i.d. (2) Syncope: Code(s): R55 - Syncope and collapse Status: Acute Assessment and Plan: Syncopal episode noted last night Carotid Dopplers are negative Bilateral lower extremity Dopplers negative for DVT Echo shows 60 65% with mildly increased left ventricular wall thickness and grade 1 diastolic dysfunction orthostatic blood pressures are negative Vitamin B12: 813, TSH 3.60 normal Tele monitor- (3) Hyperlipidemia: Code(s): E78.5 - Hyperlipidemia, unspecified Status: Chronic Assessment and Plan: Continue atorvastatin 40 mg p.o. at night (4) Recurrent falls: Code(s): R29.6 - Repeated falls Status: Acute Assessment and Plan: Instructed patient to take slow and change positions slowly Workup is negative (5) Benign prostatic hyperplasia: Code(s): N40.0 - Benign prostatic hyperplasia without lower urinary tract symptoms Status: Acute Assessment and Plan: Continue home medications Strict I&Os Monitor output Consider post residual void if needed (6) Gastroesophageal reflux disease: Code(s): K21.9 - Gastro-esophageal reflux disease without esophagitis Status: Acute Assessment and Plan: Continue home medications (7) Head injury: Code(s): S09.90XA - Unspecified injury of head, initial encounter Status: Acute Assessment and Plan: Laceration noted on hairline above left eyebrow CT negative for bleed Keep wound clean Dressed with butterfly (8) DM2 (diabetes mellitus, type 2): Code(s): E11.9 - Type 2 diabetes mellitus without complications Status: Chronic Assessment and Plan: Glucose 109 on labs currently 140 A1c 6.4 09/01/20 Carb consistent diabetic diet Continue home medications Accu-Cheks AC and HS Insulin sliding scale Hypoglycemic protocol (9) CAD (coronary artery disease): Code(s): I25.10 - Atherosclerotic heart disease of [place] coronary artery without angina pectoris Status: Chronic Assessment and Plan: History of stents and CABG Continue 81 mg aspirin Plavix 70 mg daily (10) Obstructive sleep apnea: Code(s): G47.33 - Obstructive sleep apnea (adult) (pediatric) Status: Chronic Assessment and Plan: Continue with home settings using her machine (11) Hypertension: Code(s): I10 - Essential (primary) hypertension Status: Acute Assessment and Plan: Continue home medications Current blood pressure 142/83 Trend blood pressure Adjust medications as needed Time Spent With Patient Time with patient: 25 - 35 minutes Subjective Date/time seen: 02/27/21 14:15 Interval history: Patient is an 6-year-old male who is here for syncope. Patient states that he feels better he has no complaints of chest pain or shortness of breath. He did state that his left wrist does hurt. He was sitting on the side of the bed when he passed out last night he denies nausea vomiting diarrhea constipation. He did say that his appetite is okay. He does have quite laceration on his forehead. Patient does have a left facial droop which he said that he has had for a while. Review of Systems Review of Systems: All systems reviewed & are unremarkable except as noted in HPI and below Exam Const: General: cooperative, healthy appearing, comfortable, no acute distress, well developed, confusion, lethargic and tired appearing Nutritional Appearance: well nourished Orientation/consciousness: patient oriented x3 Limitations: no limitations HENMT: Head: normal t
[2021-02-27 16:45] LABS: Glucose Point of Care 104 mg/dl (65-105)
[2021-02-27] MEDS: lisinopriL 10 MG TABLET PO (22:36)
[2021-02-27 23:06] LABS: Glucose Point of Care 119 mg/dl (65-105)
[2021-02-28] VITALS: PULSE 79
[2021-02-28 04:00] VITALS: PULSE 72
--- NOTE | 2021-02-28 05:22 | ADMGEN ---
This patient, Franky Lal, was admitted to [facility] Surg Room 322-01. Patient/family oriented to hospital policies and general routines including ID bracelet, bed and alarms, visiting hours, pain management, procedures, bathroom and other care routines, personal items, smoking policy, room service/diet, and visiting hours. Information on how to activate the Rapid Response Team has been discussed. Patient/Family are encouraged to report perceived risks to care and to ask questions if they do not understand what they are told or what they should do.
[2021-02-28 06:00] VITALS: BP 150/72; PULSE 90; RESP 20; TEMP 36.5; O2SAT 96
[2021-02-28 06:56] LABS: Basophils Percent Auto 0.4 % (0.2-1.2); Eosinophils Absolute Auto 0.2 K/mm3 (0-0.3); Hematocrit 35.4 % (42.0-52.0); Hemoglobin 11.7 g/dL (14.0-18.0); Immature Granulocyte Absolute 0.02 K/mm3 (0.00-0.031); Immature Granulocyte Percent A 0.4 % (0-0.5); Lymphocytes Absolute Auto 1.06 K/mm3 (0.9-3.2); Lymphocytes Percent Auto 22.1 % (18.3-44.2); Mean Corpuscular HGB Conc 33.1 g/dl (32-36); Mean Corpuscular Hemoglobin 33.2 pg (26-34); Mean Corpuscular Volume 100.6 fl (80-100); Mean Platelet Volume 10.1 fl (7.4-10.4); Monocytes Absolute Auto 0.4 K/mm3 (0.1-0.6); Monocytes Percent Auto 9.2 % (2.6-8.5); Neutrophils Absolute Auto 3.1 K/mm3 (1.3-6.7); Neutrophils Percent Auto 63.9 % (45.5-73.1); Platelet Count Result 203 k/mm3 (150-375); Red Blood Count 3.52 M/mm3 (4.6-6.20); Red Cell Distribution Width 12.6 % (11.5-14.5); White Blood Count 4.8 K/mm3 (4.5-10.0)
[2021-02-28 07:10] LABS: Alanine Aminotransferase 12 U/L (4-50); Albumin Level 3.4 g/dL (3.5-5.1); Alkaline Phosphatase 64 U/L (38-126); Anion Gap 6 mmol/L (8-16); Aspartate Amino Transferase 21 U/L (17-59); Bilirubin,Total 0.7 mg/dL (0.2-1.3); Blood Urea Nitrogen 15 mg/dL (9-20); Calcium 8.9 mg/dL (8.4-10.2); Carbon Dioxide 25 mmol/L (22-30); Chloride 106 mmol/L (98-107); Estimated CRCL calculation 64 ml/min; Estimated Glomerular Filt Rate > 60; Glucose 124 mg/dL (65-110); Magnesium 1.7 mg/dL (1.6-2.3); Potassium 3.7 mmol/L (3.4-5.0); Sodium 137 mmol/L (137-145)
[2021-02-28 08:00] VITALS: PULSE 65
[2021-02-28 08:28] LABS: Glucose Point of Care 131 mg/dl (65-105)
[2021-02-28] MEDS: MULTIVITAMINS /C LUTEIN (CENTRUM SILVER) TABLET *BKC 1 TAB PO (08:43)
[2021-02-28] MEDS: RANOLAZINE 500 MG TAB.ER.12H 1000 MG PO (08:43)
[2021-02-28 08:44] VITALS: PULSE 70
[2021-02-28] MEDS: MAGNESIUM OXIDE 400 MG TABLET PO (08:44)
[2021-02-28] MEDS: CLOPIDOGREL BISULFATE 75 MG TABLET PO (08:44)
[2021-02-28] MEDS: ASPIRIN 81 MG CHEWABLE TABLET PO (08:44)
[2021-02-28] MEDS: QUEtiapine FUMARATE 25 MG TABLET PO (08:44)
[2021-02-28] MEDS: CHOLECALCIFEROL 1,000 UNITS TABLET 1000 UNITS PO (08:44)
[2021-02-28] MEDS: metFORMIN HCL 500 MG TABLET PO (08:44)
[2021-02-28] MEDS: CYANOCOBALAMIN 500 MCG TABLET PO (08:44)
[2021-02-28] MEDS: PANTOPRAZOLE SOD SESQUIHYDRATE 20 MG TAB PO (08:44)
[2021-02-28] MEDS: METOPROLOL TARTRATE 25 MG TABLET PO (08:44)
[2021-02-28] MEDS: ISOSORBIDE MONONITRATE 60 MG TAB.ER.24H PO (08:44)
[2021-02-28] MEDS: ARTIFICIAL TEARS OPHTH SOLN 15 ML BOTTLE 1 DROP EACH EYE (08:45)
--- NOTE | 2021-02-28 10:02 | P.DS_ITS ---
DS: Admitting Diagnosis Discharge Date Date of Service 02/28/21 at 10:00 Admitting Diagnosis Syncope with mechanical fall DS: Discharge Diagnosis Discharge Diagnosis (1) Dementia: Code(s): F03.90 - Unspecified dementia without behavioral disturbance Status: Chronic Assessment and Plan: * Resident of [facility] [place] * Continue Seroquel 50 mg at night and 25 mg p.o. b.i.d. (2) Syncope: Code(s): R55 - Syncope and collapse Status: Acute Assessment and Plan: * Syncopal episode noted last night * Carotid Dopplers are negative * Bilateral lower extremity Dopplers negative for DVT * Echo shows 60 65% with mildly increased left ventricular wall thickness and grade 1 diastolic dysfunction * orthostatic blood pressures are negative * Vitamin B12: 813, TSH 3.60 normal * Tele monitor- (3) Hyperlipidemia: Code(s): E78.5 - Hyperlipidemia, unspecified Status: Chronic Assessment and Plan: * Continue atorvastatin 40 mg p.o. at night (4) Recurrent falls: Code(s): R29.6 - Repeated falls Status: Acute Assessment and Plan: * Instructed patient to take slow and change positions slowly * Workup is negative (5) Benign prostatic hyperplasia: Code(s): N40.0 - Benign prostatic hyperplasia without lower urinary tract symptoms Status: Acute Assessment and Plan: * Continue home medications * Strict I&Os * Monitor output * Consider post residual void if needed (6) Gastroesophageal reflux disease: Code(s): K21.9 - Gastro-esophageal reflux disease without esophagitis Status: Acute Assessment and Plan: * Continue home medications (7) Head injury: Code(s): S09.90XA - Unspecified injury of head, initial encounter Status: Acute Assessment and Plan: * Laceration noted on hairline above left eyebrow * CT negative for bleed * Keep wound clean * Dressed with butterfly (8) DM2 (diabetes mellitus, type 2): Code(s): E11.9 - Type 2 diabetes mellitus without complications Status: Chronic Assessment and Plan: * Glucose 109 on labs currently 140 * A1c 6.4 09/01/20 * Carb consistent diabetic diet * Continue home medications * Accu-Cheks AC and HS * Insulin sliding scale * Hypoglycemic protocol (9) CAD (coronary artery disease): Code(s): I25.10 - Atherosclerotic heart disease of [place] coronary artery without angina pectoris Status: Chronic Assessment and Plan: * History of stents and CABG * Continue 81 mg aspirin * Plavix 70 mg daily (10) Obstructive sleep apnea: Code(s): G47.33 - Obstructive sleep apnea (adult) (pediatric) Status: Chronic Assessment and Plan: * Continue with home settings using her machine (11) Hypertension: Code(s): I10 - Essential (primary) hypertension Status: Acute Assessment and Plan: * Continue home medications * Current blood pressure 142/83 * Trend blood pressure * Adjust medications as needed DS: Summary Hospital Course Hospital Course: Mr. Hoang is an 80 y.o. male with PMH significant for dementia, coronary artery disease, diabetes, hypertension, and several other comorbidities who presented to
--- NOTE | 2021-02-28 10:02 | PM.DS ---
DS: Admitting Diagnosis Discharge Date Date of Service 02/28/21 at 10:00 Admitting Diagnosis Syncope with mechanical fall DS: Discharge Diagnosis Discharge Diagnosis (1) Dementia: Code(s): F03.90 - Unspecified dementia without behavioral disturbance Status: Chronic Assessment and Plan: Resident of [facility] [place] Continue Seroquel 50 mg at night and 25 mg p.o. b.i.d. (2) Syncope: Code(s): R55 - Syncope and collapse Status: Acute Assessment and Plan: Syncopal episode noted last night Carotid Dopplers are negative Bilateral lower extremity Dopplers negative for DVT Echo shows 60 65% with mildly increased left ventricular wall thickness and grade 1 diastolic dysfunction orthostatic blood pressures are negative Vitamin B12: 813, TSH 3.60 normal Tele monitor- (3) Hyperlipidemia: Code(s): E78.5 - Hyperlipidemia, unspecified Status: Chronic Assessment and Plan: Continue atorvastatin 40 mg p.o. at night (4) Recurrent falls: Code(s): R29.6 - Repeated falls Status: Acute Assessment and Plan: Instructed patient to take slow and change positions slowly Workup is negative (5) Benign prostatic hyperplasia: Code(s): N40.0 - Benign prostatic hyperplasia without lower urinary tract symptoms Status: Acute Assessment and Plan: Continue home medications Strict I&Os Monitor output Consider post residual void if needed (6) Gastroesophageal reflux disease: Code(s): K21.9 - Gastro-esophageal reflux disease without esophagitis Status: Acute Assessment and Plan: Continue home medications (7) Head injury: Code(s): S09.90XA - Unspecified injury of head, initial encounter Status: Acute Assessment and Plan: Laceration noted on hairline above left eyebrow CT negative for bleed Keep wound clean Dressed with butterfly (8) DM2 (diabetes mellitus, type 2): Code(s): E11.9 - Type 2 diabetes mellitus without complications Status: Chronic Assessment and Plan: Glucose 109 on labs currently 140 A1c 6.4 09/01/20 Carb consistent diabetic diet Continue home medications Accu-Cheks AC and HS Insulin sliding scale Hypoglycemic protocol (9) CAD (coronary artery disease): Code(s): I25.10 - Atherosclerotic heart disease of [place] coronary artery without angina pectoris Status: Chronic Assessment and Plan: History of stents and CABG Continue 81 mg aspirin Plavix 70 mg daily (10) Obstructive sleep apnea: Code(s): G47.33 - Obstructive sleep apnea (adult) (pediatric) Status: Chronic Assessment and Plan: Continue with home settings using her machine (11) Hypertension: Code(s): I10 - Essential (primary) hypertension Status: Acute Assessment and Plan: Continue home medications Current blood pressure 142/83 Trend blood pressure Adjust medications as needed DS: Summary Hospital Course Hospital Course: Mr. Hoang is an 80 y.o. male with PMH significant for dementia, coronary artery disease, diabetes, hypertension, and several other comorbidities who presented to the emergency department on 02/26/21 after a mechanical fall. Patient stated that he was sitting on the side of the bed when he blacked out and fell to the ground and hit his head. Diagnostic testing including carotid doppler of the carotids, bilateral lower extremities dopplers were negative. He also had an Echo done that showed a 60-65% EF with left ventricle wall thickness, and grade 1 diastolic dysfunction. Orthostatic blood pressures were also negative. Since admission patient has had some impulsive sporadic moments. He has been working with PT/OT and has recommended that he continue PT/OT as an outpatient which he has been receiving twice a week at t
[2021-02-28 11:40] LABS: EDCOVIDSCREEN Negative (Negative)
== END 2021-02-28 12:55 ==
LOC: ANHED 19:37 → ANH3MEDSUR 02-27 11:32
PROVIDERS: Emergency Medicine Emergency Medical Services; Nurse Practitioner; Admitting Provider Internal Medicine; Emergency Provider Emergency Medicine; PCP Internal Medicine; Visit Provider Hospitalist
DX: R55 Syncope and collapse (principal); S01.112A Laceration without foreign body of left eyelid and periocular area, initial encounter; W19.XXXA Unspecified fall, initial encounter; F03.90 Unspecified dementia, unspecified severity, without behavioral disturbance, psychotic disturbance, mood disturbance, and anxiety; R29.6 Repeated falls; D64.9 Anemia, unspecified; E78.5 Hyperlipidemia, unspecified; E11.9 Type 2 diabetes mellitus without complications; G47.33 Obstructive sleep apnea (adult) (pediatric); I25.10 Atherosclerotic heart disease of native coronary artery without angina pectoris; I10 Essential (primary) hypertension; M79.89 Other specified soft tissue disorders; N40.0 Benign prostatic hyperplasia without lower urinary tract symptoms; K21.9 Gastro-esophageal reflux disease without esophagitis; Z20.822 Contact with and (suspected) exposure to COVID-19; Z79.84 Long term (current) use of oral hypoglycemic drugs
CPT/HCPCS: 36415; 70450; 71045; 72125; 73562; 80048; 80053; 80076; 81003; 82306; 82607; 82746; 82948; 83605; 83690; 83735; 84443; 84484; 85025; 85610; 85730; 86140; 87040; 87426; 93005; 93306; 93880; 93971; 96365; 97116; 97161; 97165; 97530; 99285; A9270; C9803; G0378; J0696

== ENCOUNTER 2021-07-17 18:30 | Emergency (ER) | payer MEDICARE, SELFPAY ==
[2021-07-17 18:33] VITALS: BP 135/85; PULSE 84; RESP 16; TEMP 36.8; O2SAT 97
--- NOTE | 2021-07-17 18:37 | ECG_ITS ---
Measurements Intervals [place] Rate: 82 P: 13 LA: 186 QRS: -14 QRSD: 93 T: 2 QT: 360 QTc: 421 Interpretive Statements SINUS RHYTHM ATRIAL PREMATURE COMPLEX INCOMPLETE RIGHT BUNDLE BRANCH BLOCK DELAYED PRECORDIAL R/S TRANSITION INFERIOR INFARCT, AGE INDETERMINATE BASELINE ARTIFACT- I, II, III, AVR, AVL, AVF, V1-V3, V5-V6 ABNORMAL ECG Electronically Signed On 07-18-2021 7:45:13 PROGRESS DEVELOPER by Ruddy Carrillo D.O.
[2021-07-17 18:58] LABS: Basophils Percent Auto 0.3 % (0.2-1.2); Eosinophils Absolute Auto 0.2 K/mm3 (0-0.3); Eosinophils Percent Auto 3.1 % (0-4.4); Hematocrit 31.2 % (42.0-52.0); Hemoglobin 10.6 g/dL (14.0-18.0); Immature Granulocyte Absolute 0.04 K/mm3 (0.00-0.031); Immature Granulocyte Percent A 0.7 % (0-0.5); Lymphocytes Absolute Auto 1.13 K/mm3 (0.9-3.2); Lymphocytes Percent Auto 19.4 % (18.3-44.2); Mean Corpuscular Hemoglobin 34.1 pg (26-34); Mean Corpuscular Volume 100.3 fl (80-100); Mean Platelet Volume 9.5 fl (7.4-10.4); Monocytes Absolute Auto 0.5 K/mm3 (0.1-0.6); Monocytes Percent Auto 8.6 % (2.6-8.5); Neutrophils Absolute Auto 3.9 K/mm3 (1.3-6.7); Neutrophils Percent Auto 67.9 % (45.5-73.1); Platelet Count Result 227 k/mm3 (150-375); Red Blood Count 3.11 M/mm3 (4.6-6.20); Red Cell Distribution Width 12.2 % (11.5-14.5); White Blood Count 5.8 K/mm3 (4.5-10.0)
[2021-07-17 19:07] LABS: Alanine Aminotransferase 21 U/L (4-50); Albumin Level 3.8 g/dL (3.5-5.1); Alkaline Phosphatase 65 U/L (38-126); Anion Gap 7 mmol/L (8-16); Aspartate Amino Transferase 28 U/L (17-59); Bilirubin,Total 0.6 mg/dL (0.2-1.3); Blood Urea Nitrogen 30 mg/dL (9-20); Carbon Dioxide 27 mmol/L (22-30); Chloride 103 mmol/L (98-107); Estimated CRCL calculation 35 ml/min; Estimated Glomerular Filt Rate 48; Glucose 134 mg/dL (65-110); Potassium 4.1 mmol/L (3.4-5.0); Sodium 137 mmol/L (137-145)
--- NOTE | 2021-07-17 19:44 | PC.NURSE ---
Report given to LINK Webber.
[2021-07-17 19:45] VITALS: BP 118/69; PULSE 75; RESP 18; O2SAT 100
--- NOTE | 2021-07-17 20:34 | ED.GENADULT ---
HPI - General Adult General Chief complaint: Recheck/Abnormal Lab/Rx Stated complaint: abd labs Time Seen by Provider: 07/17/21 18:53 Source: patient and other (long-term) Mode of arrival: EMS Limitations: dementia History of Present Illness HPI narrative: Patient is a 81-year-old male presenting from [facility] with chief complaint of abnormal labs. Patient is Covid positive. He is not hypoxic or in any respiratory distress. However he had labs performed on 07/16/2021 which showED increased BUN creatinine and decreased GFR. Patient was also found to have urinary tract infection. Patient denies any pain, discomfort, fever, chills he reports that he has been vaccinated against Covid and received a booster. He reports he has an occasional cough but nothing worrisome or present at this time. He denies any areas of pain. Related Data Home Medications Medication Instructions Recorded Confirmed artificial tears solution 1 drp OPHTHALMIC (EYE) QID 08/31/20 02/26/21 aspirin 81 mg PO DAILY 08/31/20 02/26/21 cholecalciferol (vitamin D3) 25 mcg PO DAILY 08/31/20 02/26/21 [Vitamin D3] clopidogrel [Plavix] 75 mg PO DAILY 08/31/20 02/26/21 isosorbide mononitrate 60 mg PO DAILY 08/31/20 02/26/21 lisinopril 10 mg PO QPM 08/31/20 02/26/21 metformin 500 mg PO BID 08/31/20 02/26/21 metoprolol tartrate 25 mg PO BID 08/31/20 02/26/21 nitroglycerin 0.4 mg SUBLINGUAL USEASDIRECTD PRN 08/31/20 02/26/21 polyethylene glycol 3350 [Miralax] 17 g PO DAILY PRN 08/31/20 02/26/21 ranolazine [Ranexa] 1,000 mg PO Q12H 08/31/20 02/26/21 diclofenac sodium [Voltaren] 4 g TOPICAL QID PRN 09/23/20 02/26/21 furosemide 20 mg PO DAILY 09/23/20 02/26/21 guaifenesin 600 mg PO BID PRN 09/23/20 02/26/21 loperamide 2 mg PO Q6H PRN 09/23/20 02/26/21 quetiapine [Seroquel] 25 mg PO BID 09/23/20 02/26/21 acetaminophen 500 mg PO QID PRN MDD 4 gm 02/26/21 02/26/21 atorvastatin 40 mg PO HS 02/26/21 02/26/21 cyanocobalamin (vitamin B-12) 500 mcg PO DAILY 02/26/21 02/26/21 [Vitamin B-12] magnesium oxide 400 mg PO DAILY 02/26/21 02/26/21 pantoprazole 20 mg PO QAM 02/26/21 02/26/21 vit C-vit [id number] 1 cap PO DAILY 02/26/21 02/26/21 Allergies Allergy/AdvReac Type Severity Reaction Status Date / Time ketorolac [From Toradol] Allergy Swelling Verified 07/17/21 18:45 Review of Systems Review of Systems: CONSTITUTIONAL: Denies fever, chills, or sweats. EYES: Denies visual changes, redness, or discharge. ENT: Denies rhinorrhea, congestion, sore throat, or otalgia. CARDIOVASCULAR: Denies chest pain, palpitations, or edema. RESPIRATORY: Reports occasional cough denies dyspnea. GASTROINTESTINAL: Denies abdominal pain, nausea, vomiting, or diarrhea. GENITOURINARY: Denies dysuria or hematuria. SKIN: Denies rash or itching. MUSCULOSKELETAL: Denies back pain, joint pain, or myalgia. NEUROLOGIC: Denies headache, numbness, dizziness, or weakness. PSYCHIATRIC: Denies anxiety or depression. [facility] Past Medical History Medical History Anxiety Benign prostatic hyperplasia Chronic anemia Coronary artery disease History of multiple stents over the years and 4 vessel bypass in 1984. Dementia Gastroesophageal reflux disease Glaucoma Gout History of peptic ulcer disease Hyperlipidemia Hypertension Obstructive sleep apnea Peripheral arterial disease Type 2 diabetes mellitus Hemoglobin A1c was 6.4% on 09/01/2020. Surgical History Surgical History History of appendectomy History of colonoscopy with polypectomy History of coronary angioplasty with insertion of stent Multiple stents placed over the years. History of coronary artery bypass graft 4 vessel bypass on 05/30/[address] Downey at [facility]. History of orthopedic surgery Pinning of left fracture in the 1960s. History of toe surgery Right 1st toe surgery, patient states relat
[2021-07-17] MEDS: SODIUM CHLORIDE 0.9% IV 1,000 ML 999 ML IV CONT (20:54)
[2021-07-17 22:24] VITALS: BP 152/95; PULSE 79; RESP 19; O2SAT 96
== END 2021-07-17 22:15 ==
PROVIDERS: Emergency Medicine; Emergency Provider Emergency Medicine; PCP Internal Medicine
DX: N39.0 Urinary tract infection, site not specified (principal); N17.9 Acute kidney failure, unspecified; F41.9 Anxiety disorder, unspecified; N40.0 Benign prostatic hyperplasia without lower urinary tract symptoms; D64.9 Anemia, unspecified; I25.10 Atherosclerotic heart disease of native coronary artery without angina pectoris; F03.90 Unspecified dementia, unspecified severity, without behavioral disturbance, psychotic disturbance, mood disturbance, and anxiety; I10 Essential (primary) hypertension; E11.9 Type 2 diabetes mellitus without complications; Z79.84 Long term (current) use of oral hypoglycemic drugs
CPT/HCPCS: 36415; 80053; 85025; 93005; 96360; 99283; J7030

== ENCOUNTER 2021-11-24 15:36 | Emergency (ER) | payer MEDICARE, SELFPAY ==
--- NOTE | ~2021-11-24 | CT_ITS ---
EXAMINATION: CT brain wo con DATE: 11/24/2021 16:42 INDICATION: Status post fall. Lethargy. TECHNIQUE: Computed tomography (CT) of the head was performed without intravenous contrast. The dose- length product was 681.00 mGy-cm. Automated exposure control and iterative reconstruction technique w ere employed. COMPARISON: CT dated 02/26/2021 FINDINGS: Generalized atrophy. There are scattered mild periventricular and subcortical white matter changes, most likely related to small vessel ischemic disease (microangiopathy). No acute intracrania l hemorrhage, infarction, mass or mass effect. Midline sagittal images are unremarkable. There is int racranial atherosclerosis. No ventriculomegaly or midline shift. IMPRESSION: 1. No acute intracranial abnormality. 2: Chronic age-related findings. Reviewed, dictated and finalized at location B.
--- NOTE | ~2021-11-24 | CT_ITS ---
EXAMINATION: CT cervical spine wo con DATE: 11/24/2021 16:43 INDICATION: Status post fall. Neck pain. TECHNIQUE: Computed tomography (CT) of the cervical spine was performed without intravenous contrast. The dose-length product was 474 mGy-cm. Automated exposure control and iterative reconstruction tech nique were employed. COMPARISON: CT dated 02/26/2021 FINDINGS: No acute Fracture or traumatic malalignment. Odontoid process within normal limits. Craniov ertebral junction is unremarkable. No skull base fractures. There is intracranial atherosclerosis. Th ere is moderate facet hypertrophy. No evidence for perched facet. Lung apices are normal. IMPRESSION: 1. No acute abnormality of the cervical spine. 2: Moderate cervical spondylosis. Reviewed, dictated and finalized at location B.
--- NOTE | ~2021-11-24 | XR_ITS ---
XR chest 1V portable DATE: 11/24/2021 16:17 INDICATION: Fall. Diabetes. Hypertension. Coronary artery disease. TECHNIQUE: Portable AP chest on 11/24/2021 at 1611 hours COMPARISON: 02/26/2021 AP chest 09/23/2020 2 view chest FINDINGS: Status post sternotomy. Borderline heart size. Aortic calcification and mild unfolding. No hilar or mediastinal enlargement is evident. The apices are partially obscured by superimposed chin. There is mild discoid atelectasis or scarring at the lung bases. No pulmonary consolidation, pleural effusion, pulmonary vascular congestion or pn eumothorax is evident on this limited single portable view. IMPRESSION: Borderline heart size Aortic atherosclerosis Status post sternotomy Reviewed, dictated and finalized at location A.
[2021-11-24 15:44] VITALS: BP 162/83; PULSE 64; RESP 18; TEMP 36.7; O2SAT 98
--- NOTE | 2021-11-24 16:07 | ECG_ITS ---
Measurements Intervals [place] Rate: 67 P: 12 MA: 204 QRS: -25 QRSD: 98 T: 12 QT: 416 QTc: 441 Interpretive Statements SINUS RHYTHM BORDERLINE LEFT AXIS DEVIATION [QRS AXIS < -20] COMPARED TO ECG 07/17/2021 18:37:13 NO SIGNIFICANT CHANGES Electronically Signed On 11-24-2021 21:14:53 CDT by Briseida Oakes MD
--- NOTE | 2021-11-24 16:09 | ED.AMS ---
HPI - Altered Mental Status General Chief Complaint: Altered Mental Status Stated Complaint: fall Time Seen by Provider: 11/24/21 15:49 Source: RN notes reviewed History of Present Illness HPI narrative: Patient presents emergency department from [facility] via EMS for altered mental status. Per the staff the patient has been more lethargic today as well as more aggressive trying to strike at the staff they state this is abnormal for the patient. The patient did have a known history of a fall 2 days ago with no known injuries. Patient states that he recalls the fall and says he fell out of his bed. Patient currently resting in bed he is ANO x2 he denies any complaints at this time denies any chest pain, shortness of breath abdominal pain nausea or vomiting Related Data Home Medications Medication Instructions Recorded Confirmed artificial tears solution eye drops 1 drp ophthalmic (eye) QID 08/31/20 02/26/21 aspirin 81 mg tablet 81 mg PO DAILY 08/31/20 02/26/21 cholecalciferol (vitamin D3) 125 25 mcg PO DAILY 08/31/20 02/26/21 mcg (5,000 unit) tablet (Vitamin D3) clopidogrel 75 mg tablet (Plavix) 75 mg PO DAILY 08/31/20 02/26/21 isosorbide mononitrate 60 mg 60 mg PO DAILY 08/31/20 02/26/21 tablet,extended release 24 hr lisinopril 10 mg tablet 10 mg PO QPM 08/31/20 02/26/21 metformin 500 mg tablet 500 mg PO BID 08/31/20 02/26/21 metoprolol tartrate 25 mg tablet 25 mg PO BID 08/31/20 02/26/21 nitroglycerin 0.4 mg sublingual 0.4 mg sublingual USEASDIRECTD PRN 08/31/20 02/26/21 tablet Chest Pain polyethylene glycol 3350 17 17 g PO DAILY PRN Constipation 08/31/20 02/26/21 gram/dose oral powder (Miralax) ranolazine 1,000 mg 1,000 mg PO Q12H 08/31/20 02/26/21 tablet,extended release,12 hr (Ranexa) diclofenac sodium 1 % topical gel 4 g topical QID PRN Pain 09/23/20 02/26/21 (Voltaren) furosemide 20 mg tablet 20 mg PO DAILY 09/23/20 02/26/21 guaifenesin 600 mg tablet,extended 600 mg PO BID PRN Cough 09/23/20 02/26/21 release loperamide 2 mg capsule 2 mg PO Q6H PRN Loose Stool 09/23/20 02/26/21 quetiapine 25 mg tablet (Seroquel) 25 mg PO BID 09/23/20 02/26/21 acetaminophen 500 mg tablet 500 mg PO QID PRN Pain (Scale 02/26/21 02/26/21 Score 1-3) atorvastatin 40 mg tablet 40 mg PO HS 02/26/21 02/26/21 cyanocobalamin (vitamin B-12) 500 500 mcg PO DAILY 02/26/21 02/26/21 mcg tablet (Vitamin B-12) magnesium oxide 400 mg PO DAILY 02/26/21 02/26/21 pantoprazole 20 mg tablet,delayed 20 mg PO QAM 02/26/21 02/26/21 release vit C-vit [id number] capsule 1 cap PO DAILY 02/26/21 02/26/21 Allergies Allergy/AdvReac Type Severity Reaction Status Date / Time ketorolac [From Toradol] Allergy Swelling Verified 07/17/21 18:45 Review of Systems Review of Systems: Gen.: Denies fevers or chills Eyes: Denies eye pain or visual change ENT: Denies congestion Respiratory: Denies shortness of breath or cough CV: Denies chest pain or palpitations GI: Denies abdominal pain nausea, emesis or diarrhea Musculoskeletal: Denies back pain or muscle pain Neuro: See HPI Skin: Denies rash Except as documented, all other systems reviewed and negative [facility] Past Medical History Medical History Anxiety Benign prostatic hyperplasia Chronic anemia Coronary artery disease History of multiple stents over the years and 4 vessel bypass in 1984. Dementia Gastroesophageal reflux disease Glaucoma Gout History of peptic ulcer disease Hyperlipidemia Hypertension Obstructive sleep apnea Peripheral arterial disease Type 2 diabetes mellitus Hemoglobin A1c was 6.4% on 09/01/2020. Surgical History Surgical History History of appendectomy History of colonoscopy with polypectomy History of coronary angioplasty with insertion of stent Multiple stents placed over the years. History of coronary artery bypass graft 4 vessel bypass
[2021-11-24 17:16] LABS: Basophils Percent Auto 0.4 % (0.2-1.2); Eosinophils Absolute Auto 0.2 K/mm3 (0-0.3); Eosinophils Percent Auto 3.9 % (0-4.4); Hematocrit 33.5 % (42.0-52.0); Hemoglobin 10.9 g/dL (14.0-18.0); Immature Granulocyte Absolute 0.01 K/mm3 (0.00-0.031); Immature Granulocyte Percent A 0.2 % (0-0.5); Lymphocytes Absolute Auto 1.35 K/mm3 (0.9-3.2); Lymphocytes Percent Auto 29.2 % (18.3-44.2); Mean Corpuscular HGB Conc 32.5 g/dl (32-36); Mean Corpuscular Hemoglobin 33.6 pg (26-34); Mean Corpuscular Volume 103.4 fl (80-100); Mean Platelet Volume 9.9 fl (7.4-10.4); Monocytes Absolute Auto 0.5 K/mm3 (0.1-0.6); Neutrophils Absolute Auto 2.6 K/mm3 (1.3-6.7); Neutrophils Percent Auto 56.3 % (45.5-73.1); Platelet Count Result 208 k/mm3 (150-375); Red Blood Count 3.24 M/mm3 (4.6-6.20); Red Cell Distribution Width 12.4 % (11.5-14.5); White Blood Count 4.6 K/mm3 (4.5-10.0)
[2021-11-24 17:17] LABS: Appearance Urine Clear (Clear); Bilirubin Urine Negative (Negative); Blood Urine Negative (Negative); Color Urine Yellow (Yellow); Glucose Urine UA Negative (Negative); Ketones Urine Negative (Negative); Leukocyte Esterase Ur Negative LEU/UL (Negative); Nitrate Urine Negative (Negative); Protein Urine Negative (Negative); Specific Grav Ur 1.025 (1.001-1.035); Urobilinogen Urine 0.2 mg/dL (<2.0); pH Urine 5.5 (5.0-9.0)
[2021-11-24 17:27] LABS: Add Urine Microscopic? NO
[2021-11-24 17:32] LABS: Alanine Aminotransferase 16 U/L (6-50); Albumin Level 4.2 g/dL (3.5-5.1); Alkaline Phosphatase 61 U/L (38-126); Anion Gap 7 mmol/L (8-16); Aspartate Amino Transferase 25 U/L (17-59); Bilirubin,Total 0.6 mg/dL (0.2-1.3); Blood Urea Nitrogen 21 mg/dL (9-20); Calcium 8.7 mg/dL (8.4-10.2); Carbon Dioxide 25 mmol/L (22-30); Chloride 108 mmol/L (98-107); Estimated CRCL calculation 70 ml/min; Estimated Glomerular Filt Rate > 60; Glucose 93 mg/dL (65-110); Potassium 3.8 mmol/L (3.4-5.0); Sodium 140 mmol/L (137-145)
[2021-11-24 17:40] LABS: Partial Thromboplastin Time 21.6 SECONDS (22.3-36.8)
[2021-11-24 17:42] VITALS: BP 136/78; PULSE 78; RESP 18; O2SAT 99
[2021-11-24 17:44] LABS: Prothrombin Time 12.9 Seconds (11.1-14.7)
--- NOTE | 2021-11-24 18:46 | PC.NURSE ---
per house sup call scott for return scott declined at [phone] house sup notified contacting [facility]
--- NOTE | 2021-11-24 18:57 | PC.NURSE ---
attempted to call report to half-way. left on hold for 11 min with no answer. eddie called for transport
[2021-11-24 19:10] VITALS: BP 157/68; PULSE 72; RESP 18; O2SAT 99
== END 2021-11-24 22:05 ==
PROVIDERS: Emergency Provider Emergency Medicine
DX: R41.82 Altered mental status, unspecified (principal); I25.10 Atherosclerotic heart disease of native coronary artery without angina pectoris; F03.90 Unspecified dementia, unspecified severity, without behavioral disturbance, psychotic disturbance, mood disturbance, and anxiety; E78.5 Hyperlipidemia, unspecified; I10 Essential (primary) hypertension; E11.51 Type 2 diabetes mellitus with diabetic peripheral angiopathy without gangrene; I73.9 Peripheral vascular disease, unspecified; D64.9 Anemia, unspecified; N40.0 Benign prostatic hyperplasia without lower urinary tract symptoms; K21.9 Gastro-esophageal reflux disease without esophagitis; G47.33 Obstructive sleep apnea (adult) (pediatric); F41.9 Anxiety disorder, unspecified; Z95.5 Presence of coronary angioplasty implant and graft; Z95.1 Presence of aortocoronary bypass graft; Z79.84 Long term (current) use of oral hypoglycemic drugs; Z79.82 Long term (current) use of aspirin
CPT/HCPCS: 36415; 70450; 71045; 72125; 80053; 81003; 85025; 85610; 85730; 93005; 99284

== ENCOUNTER 2022-02-11 02:23 | Day surgery (SDC) | payer MEDICARE, SELFPAY ==
[2022-02-06 13:29] VITALS: BMI 31.1
--- NOTE | 2022-02-11 10:38 | WPDANESEPPF ---
Anes - Initial Pre Proc Eval Procedure: Operation Date: 02/11/22 11:30 Proposed Procedures p Screening Colonoscopy - Mansoor Walker MD Date/Time: 02/11/22 10:38 Surgeon: Mansoor Walker MD Pre Op Diagnosis: hx of colon polyps Patient Data Age: 81 Gender: M Height: 1.83 m Weight: 104 kg Allergies Allergy/AdvReac Type Severity Reaction Status Date / Time ketorolac [From Toradol] Allergy Swelling Verified 02/11/22 10:36 Home Medications Medication Instructions Recorded Confirmed Type artificial tears solution eye drops 1 drp ophthalmic (eye) QID 08/31/20 02/06/22 History aspirin 81 mg tablet 81 mg PO DAILY 08/31/20 02/26/21 History cholecalciferol (vitamin D3) 125 25 mcg PO DAILY 08/31/20 02/06/22 History mcg (5,000 unit) tablet (Vitamin D3) clopidogrel 75 mg tablet (Plavix) 75 mg PO DAILY 08/31/20 02/06/22 History isosorbide mononitrate 60 mg 60 mg PO DAILY 08/31/20 02/06/22 History tablet,extended release 24 hr lisinopril 10 mg tablet 10 mg PO QPM 08/31/20 02/06/22 History metformin 500 mg tablet 500 mg PO BID 08/31/20 02/06/22 History metoprolol tartrate 25 mg tablet 25 mg PO BID 08/31/20 02/06/22 History nitroglycerin 0.4 mg sublingual 0.4 mg sublingual USEASDIRECTD PRN 08/31/20 02/06/22 History tablet Chest Pain polyethylene glycol 3350 17 17 g PO DAILY PRN Constipation 08/31/20 02/06/22 History gram/dose oral powder (Miralax) ranolazine 1,000 mg 1,000 mg PO Q12H 08/31/20 02/06/22 History tablet,extended release,12 hr (Ranexa) diclofenac sodium 1 % topical gel 4 g topical QID PRN Pain 09/23/20 02/06/22 History (Voltaren) furosemide 20 mg tablet 20 mg PO DAILY 09/23/20 02/06/22 History guaifenesin 600 mg tablet,extended 600 mg PO BID PRN Cough 09/23/20 02/06/22 History release loperamide 2 mg capsule 2 mg PO Q6H PRN Loose Stool 09/23/20 02/06/22 History quetiapine 25 mg tablet (Seroquel) 25 mg PO BID 09/23/20 02/06/22 History acetaminophen 500 mg tablet 500 mg PO QID PRN Pain (Scale 02/26/21 02/06/22 History Score 1-3) atorvastatin 40 mg tablet 40 mg PO HS 02/26/21 02/06/22 History cyanocobalamin (vitamin B-12) 500 500 mcg PO DAILY 02/26/21 02/26/21 History mcg tablet (Vitamin B-12) magnesium oxide 400 mg PO DAILY 02/26/21 02/06/22 History pantoprazole 20 mg tablet,delayed 20 mg PO QAM 02/26/21 02/06/22 History release vit C-vit [id number]-[id number] capsule 1 cap PO DAILY 02/26/21 02/06/22 History quetiapine 25 mg tablet (Seroquel) 25 mg PO HS #0 tabs 02/28/21 02/26/21 Rx ciprofloxacin HCl 500 mg tablet 500 mg PO Q12H #14 tabs 07/17/21 Rx (Cipro) elderberry fruit 460 mg-elderberry 1 cap PO DAILY 02/06/22 02/06/22 History flower 115 mg capsule Patient hx anesthesia problems: none Family hx anesthesia problems: none Results Review: All pre-operative results and documents have been reviewed as part of the pre-operative evaluation. [facility] Past Medical History Medical History Anxiety Benign prostatic hyperplasia Chronic anemia Coronary artery disease History of multiple stents over the years and 4 vessel bypass in 1984. Dementia Gastroesophageal reflux disease Glaucoma Gout History of peptic ulcer disease Hyperlipidemia Hypertension Obstructive sleep apnea Peripheral arterial disease Type 2 diabetes mellitus Hemoglobin A1c was 6.4% on 09/01/2020. Surgical History Surgical History History of appendectomy History of colonoscopy with polypectomy History of coronary angioplasty with insertion of stent Multiple stents placed over the years. History of coronary artery bypass graft 4 vessel bypass on 05/30/[address] Downey at [facility]. History of orthopedic surgery Pinning of left fracture in the 1960s. History of toe surgery Right 1st toe surgery, patient states related to chronic gout. Family
--- NOTE | 2022-02-11 10:41 | WPDANESEPPF ---
Anes - Initial Pre Proc Eval Procedure: Operation Date: 02/11/22 11:30 Proposed Procedures p Screening Colonoscopy - Mansoor Walker MD Date/Time: 02/11/22 10:41 Surgeon: Mansoor Walker MD Pre Op Diagnosis: hx of colon polyps Patient Data Age: 81 Gender: M Height: 1.83 m Weight: 104 kg Allergies Allergy/AdvReac Type Severity Reaction Status Date / Time ketorolac [From Toradol] Allergy Swelling Verified 02/11/22 10:36 Home Medications Medication Instructions Recorded Confirmed Type artificial tears solution eye drops 1 drp ophthalmic (eye) QID 08/31/20 02/06/22 History aspirin 81 mg tablet 81 mg PO DAILY 08/31/20 02/26/21 History cholecalciferol (vitamin D3) 125 25 mcg PO DAILY 08/31/20 02/06/22 History mcg (5,000 unit) tablet (Vitamin D3) clopidogrel 75 mg tablet (Plavix) 75 mg PO DAILY 08/31/20 02/06/22 History isosorbide mononitrate 60 mg 60 mg PO DAILY 08/31/20 02/06/22 History tablet,extended release 24 hr lisinopril 10 mg tablet 10 mg PO QPM 08/31/20 02/06/22 History metformin 500 mg tablet 500 mg PO BID 08/31/20 02/06/22 History metoprolol tartrate 25 mg tablet 25 mg PO BID 08/31/20 02/06/22 History nitroglycerin 0.4 mg sublingual 0.4 mg sublingual USEASDIRECTD PRN 08/31/20 02/06/22 History tablet Chest Pain polyethylene glycol 3350 17 17 g PO DAILY PRN Constipation 08/31/20 02/06/22 History gram/dose oral powder (Miralax) ranolazine 1,000 mg 1,000 mg PO Q12H 08/31/20 02/06/22 History tablet,extended release,12 hr (Ranexa) diclofenac sodium 1 % topical gel 4 g topical QID PRN Pain 09/23/20 02/06/22 History (Voltaren) furosemide 20 mg tablet 20 mg PO DAILY 09/23/20 02/06/22 History guaifenesin 600 mg tablet,extended 600 mg PO BID PRN Cough 09/23/20 02/06/22 History release loperamide 2 mg capsule 2 mg PO Q6H PRN Loose Stool 09/23/20 02/06/22 History quetiapine 25 mg tablet (Seroquel) 25 mg PO BID 09/23/20 02/06/22 History acetaminophen 500 mg tablet 500 mg PO QID PRN Pain (Scale 02/26/21 02/06/22 History Score 1-3) atorvastatin 40 mg tablet 40 mg PO HS 02/26/21 02/06/22 History cyanocobalamin (vitamin B-12) 500 500 mcg PO DAILY 02/26/21 02/26/21 History mcg tablet (Vitamin B-12) magnesium oxide 400 mg PO DAILY 02/26/21 02/06/22 History pantoprazole 20 mg tablet,delayed 20 mg PO QAM 02/26/21 02/06/22 History release vit C-vit S-ppzmkr-yafvwlmi capsule 1 cap PO DAILY 02/26/21 02/06/22 History quetiapine 25 mg tablet (Seroquel) 25 mg PO HS #0 tabs 02/28/21 02/26/21 Rx ciprofloxacin HCl 500 mg tablet 500 mg PO Q12H #14 tabs 07/17/21 Rx (Cipro) elderberry fruit 460 mg-elderberry 1 cap PO DAILY 02/06/22 02/06/22 History flower 115 mg capsule Patient hx anesthesia problems: none Family hx anesthesia problems: none Results Review: All pre-operative results and documents have been reviewed as part of the pre-operative evaluation. [facility] Past Medical History Medical History Anxiety Benign prostatic hyperplasia Chronic anemia Coronary artery disease History of multiple stents over the years and 4 vessel bypass in 1984. Dementia Gastroesophageal reflux disease Glaucoma Gout History of peptic ulcer disease Hyperlipidemia Hypertension Obstructive sleep apnea Peripheral arterial disease Type 2 diabetes mellitus Hemoglobin A1c was 6.4% on 09/01/2020. Surgical History Surgical History History of appendectomy History of colonoscopy with polypectomy History of coronary angioplasty with insertion of stent Multiple stents placed over the years. History of coronary artery bypass graft 4 vessel bypass on 05/30/[address] Downey at [facility]. History of orthopedic surgery Pinning of left fracture in the 1960s. History of toe surgery Right 1st toe surgery, patient states related to chronic gout. Family
[2022-02-11 10:45] VITALS: BP 134/74; PULSE 60; RESP 20; TEMP 36.1; O2SAT 100; BMI 32.3
[2022-02-11] MEDS: LACTATED RINGERS 1,000 ML 150 ML IV CONT (11:00)
[2022-02-11 11:01] LABS: Glucose Point of Care 103 mg/dl (65-105)
--- NOTE | 2022-02-11 11:24 | PM.HPGS ---
History of Present Illness History of Present Illness Consent: Risks, benefits, and alternatives have been discussed and questions answered. Patient agrees to proceed with procedure. Chief complaint: hx of colon polyps Narrative: Franky Lal is a 81 year old male with colon polyp 5 years ago. Review of Systems Constitutional: Constitutional: Denies headache(s) and Denies weakness Eyes: Eyes: Denies blurry vision ENT: Reports Normal hearing present, Denies headache(s) and Denies neck pain Cardiovascular: Cardiovascular: Denies chest pain and Denies dyspnea Respiratory: Respiratory: Denies dyspnea Gastrointestinal: Gastrointestinal: Reports no additional gastrointestinal complaints Genitourinary: Genitourinary: Denies dysuria Musculoskeletal: Musculoskeletal: Denies neck pain Integumentary/Breasts: Skin/Breast: Denies dry skin Neurologic: Denies headache(s) and Denies weakness Comments: h/o dementia Psychiatric: Psychiatric: Denies anxiety Endocrine: Endocrine: Denies change in body appearance Hematologic/Lymphatic: Hematologic/Lymphatic: Denies easy bleeding Allergic/Immunologic: Allergic/Immunologic: Denies urticaria PMFSH Past Medical History Medical History (Updated 02/11/22 @ 11:25 by Mansoor Walker MD) Adenomatous colon polyp Anxiety Benign prostatic hyperplasia Chronic anemia Coronary artery disease History of multiple stents over the years and 4 vessel bypass in 1984. Dementia Gastroesophageal reflux disease Glaucoma Gout History of peptic ulcer disease Hyperlipidemia Hypertension Obstructive sleep apnea Peripheral arterial disease Type 2 diabetes mellitus Hemoglobin A1c was 6.4% on 09/01/2020. Surgical History Surgical History History of appendectomy History of colonoscopy with polypectomy History of coronary angioplasty with insertion of stent Multiple stents placed over the years. History of coronary artery bypass graft 4 vessel bypass on 05/30/[address] Downey at [facility]. History of orthopedic surgery Pinning of left fracture in the 1960s. History of toe surgery Right 1st toe surgery, patient states related to chronic gout. Family History Family History Mother Cancer Father Cancer Social History Social History Social History: The patient is . He is now a resident at [facility]. His still lives in [place]. The patient tells me that he had 5 children. He was in the [employer] and retired from [employer]. Lifelong nonsmoker. No alcohol or illicit substance use. His Zehra and daughter Chantelle Menard are his emergency contact. Code status: Do not resuscitate. Smoking status: Never smoker Alcohol intake: former Substance use: never Substance use type: does not use Living arrangements: skilled nursing Sexual Orientation (if Verbalized by the Patient): Straight or Heterosexual Spiritual care concerns: No Meds Home Medications and Allergies Home Medications Medication Instructions Recorded Confirmed Type artificial tears solution eye drops 1 drp ophthalmic (eye) QID 08/31/20 02/11/22 History cholecalciferol (vitamin D3) 125 25 mcg PO DAILY 08/31/20 02/11/22 History mcg (5,000 unit) tablet (Vitamin D3) clopidogrel 75 mg tablet (Plavix) 75 mg PO DAILY 08/31/20 02/11/22 History isosorbide mononitrate 60 mg 60 mg PO DAILY 08/31/20 02/11/22 History tablet,extended release 24 hr lisinopril 10 mg tablet 10 mg PO DAILY 08/31/20 02/11/22 History metformin 500 mg tablet 500 mg PO BID 08/31/20 02/11/22 History metoprolol tartrate 25 mg tablet 25 mg PO BID 08/31/20 02/11/22 History nitroglycerin 0.4 mg sublingual 0.4 mg sublingual USEASDIRECTD PRN 08/31/20 02/11/22 History tablet Chest Pain polyethylene gl
[2022-02-11 11:48] VITALS: BP 124/84; PULSE 65; RESP 23; O2SAT 98
[2022-02-11 11:58] VITALS: BP 124/82; PULSE 60; RESP 15; O2SAT 97
[2022-02-11 12:08] VITALS: BP 132/86; PULSE 62; RESP 18; O2SAT 98
== END 2022-02-11 12:18 | disposition home or self-care (01) ==
PROVIDERS: PCP Internal Medicine; Visit Provider Internal Medicine Gastroenterology
PROC: 0DJD8ZZ Inspection of Lower Intestinal Tract, Via Natural or Artificial Opening Endoscopic (ICD-10-PCS; CPT 45378; principal; 2022-02-11 11:30)
DX: Z12.11 Encounter for screening for malignant neoplasm of colon (principal); Z86.010 Personal history of colon polyps; K57.30 Diverticulosis of large intestine without perforation or abscess without bleeding; K64.8 Other hemorrhoids; F41.9 Anxiety disorder, unspecified; D64.9 Anemia, unspecified; N40.0 Benign prostatic hyperplasia without lower urinary tract symptoms; Z95.5 Presence of coronary angioplasty implant and graft; Z87.11 Personal history of peptic ulcer disease; Z87.898 Personal history of other specified conditions; F03.90 Unspecified dementia, unspecified severity, without behavioral disturbance, psychotic disturbance, mood disturbance, and anxiety; K21.9 Gastro-esophageal reflux disease without esophagitis; M10.9 Gout, unspecified; I10 Essential (primary) hypertension; E78.5 Hyperlipidemia, unspecified; E11.9 Type 2 diabetes mellitus without complications; I73.9 Peripheral vascular disease, unspecified; G47.33 Obstructive sleep apnea (adult) (pediatric); Z79.84 Long term (current) use of oral hypoglycemic drugs; Z79.82 Long term (current) use of aspirin; E66.9 Obesity, unspecified; Z68.32 Body mass index [BMI] 32.0-32.9, adult
CPT/HCPCS: G0105; 82948; J2001; J2704; J7120

== ENCOUNTER 2023-06-13 15:02 | Observation (INO) | payer MEDICARE, SELFPAY ==
[2023-06-13] VITALS (10 sets, daily range): BP systolic 129–172; BP diastolic 75–95; PULSE 72–80; RESP 16–22; TEMP 36.2–37; O2SAT 63–100; BMI 32.9
--- NOTE | ~2023-06-13 | CT_ITS ---
EXAMINATION: CT abdomen pelvis w con DATE: 06/13/2023 16:41 INDICATION: Nonhealing localized abdominal pain. TECHNIQUE: Computed tomography (CT) of the abdomen and pelvis was performed with 100 cc Omnipaque 350 intravenous contrast. The dose-length product was 1439.36 mGy-cm. Automated exposure control and ite rative reconstruction technique were employed. COMPARISON: CT dated 09/24/2020 FINDINGS: There is dependent atelectasis. No significant pleural or pericardial effusion. Heart size normal. There is atherosclerosis without aneurysm. There is mild stenosis of the celiac axis and isa l arteries. There is a penile prosthetic pump. The liver, spleen, pancreas, adrenal glands and kidney s are unremarkable. Bladder is unremarkable. Nonobstructive bowel gas pattern. Moderate colonic fecal loading. Gallbladder is present. No lymphadenopathy. No free air or free fluid. There is mild thicke lucho of the rectum with subtle perirectal fatty infiltration, suspicious for stercoral proctitis. 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 Moderate lumbar spondylosis with grade 1 degenerative spondylolisth esis at L4-5. IMPRESSION: 1. Possible mild stercoral proctitis. Reviewed, dictated and finalized at location A. SUPPORT SPECIALIST
--- NOTE | ~2023-06-13 | CT_ITS ---
EXAMINATION: CT brain wo con DATE: 06/13/2023 16:41 INDICATION: Status post fall. Head injury. TECHNIQUE: Computed tomography (CT) of the head was performed without intravenous contrast. The dose- length product was 681.00 mGy-cm. Automated exposure control and iterative reconstruction technique were employed. COMPARISON: CT dated 11/24/2021 FINDINGS: Generalized atrophy. There are scattered mild periventricular and subcortical white matter changes, most likely related to small vessel ischemic disease (microangiopathy). No ventriculomegaly or midline shift. There are surgical changes of lens replacement surgery. There is intracranial ather osclerosis. Midline sagittal images are unremarkable. Paranasal sinuses are unremarkable. Small masto id effusions. No depressed skull fractures. IMPRESSION: 1. No acute intracranial abnormality. Reviewed, dictated and finalized at location A. RAFT TIME CLERK
--- NOTE | ~2023-06-13 | XR_ITS ---
XR chest 1V portable 06/13/2023 16:06 Indication: Status post fall. Chest pain. Procedure: AP portable chest Comparison: Comparison to multiple prior studies sequentially, with oldest reviewed study dated 08/31. Findings: Status post median sternotomy for CABG. Cardiomegaly. Bilateral interstitial infiltrates. L eft basilar atelectasis/scarring. No significant effusion or pneumothorax. Impression: 1: Mild bilateral interstitial infiltrates which may represent edema or atypical pneumonia. Reviewed, dictated and finalized at location A. LE ELECTRONICS INSTALLER Impression: 1: Mild bilateral interstitial infiltrates which may represent edema or atypica l pneumonia.
--- NOTE | ~2023-06-13 | US_ITS ---
US renal BI 06/15/2023 09:32 Procedure: Realtime transabdominal ultrasound of the kidneys and bladder. Indication: Acute renal insufficiency Comparison: No prior studies for comparison. Findings: Renal echotexture is normal bilaterally without hydronephrosis, contour deforming mass or r enal calculus. The right kidney measures 11.8 cm and left kidney measures 7.3 cm. Bladder within nor mal limits. Impression: 1: Mild bladder wall thickening, nonspecific. Consider cystitis in the appropriate clinical setting. Reviewed, dictated and finalized at location L. IATIVE CARE COORDINATOR Impression: 1: Mild bladder wall thickening, nonspecific. Consider cystitis in the appropri ate clinical setting.
[2023-06-13] MEDS: SODIUM CHLORIDE 0.9% IV 1,000 ML 999 ML IV CONT (15:57)
[2023-06-13 16:06] LABS: Basophils Percent Auto 0.2 % (0.2-1.2); Eosinophils Percent Auto 0.5 % (0-4.4); Hematocrit 35.3 % (42.0-52.0); Hemoglobin 11.6 g/dL (14.0-18.0); Immature Granulocyte Absolute 0.02 K/mm3 (0.00-0.031); Immature Granulocyte Percent A 0.3 % (0-0.5); Lymphocytes Absolute Auto 0.76 K/mm3 (0.9-3.2); Lymphocytes Percent Auto 11.5 % (18.3-44.2); Mean Corpuscular HGB Conc 32.9 g/dl (32-36); Mean Corpuscular Hemoglobin 33.4 pg (26-34); Mean Corpuscular Volume 101.7 fl (80-100); Mean Platelet Volume 9.7 fl (7.4-10.4); Monocytes Absolute Auto 0.5 K/mm3 (0.1-0.6); Monocytes Percent Auto 7.6 % (2.6-8.5); Neutrophils Absolute Auto 5.3 K/mm3 (1.3-6.7); Neutrophils Percent Auto 79.9 % (45.5-73.1); Platelet Count Result 198 k/mm3 (150-375); Red Blood Count 3.47 M/mm3 (4.6-6.20); Red Cell Distribution Width 12.7 % (11.5-14.5); White Blood Count 6.6 K/mm3 (4.5-10.0)
[2023-06-13 16:14] LABS: Lactic Acid Reflex 2.6 mmol/L (0.7-2.0)
[2023-06-13 16:15] LABS: Alanine Aminotransferase 16 U/L (6-50); Alkaline Phosphatase 59 U/L (38-126); Anion Gap 8 mmol/L (8-16); Aspartate Amino Transferase 20 U/L (17-59); Bilirubin,Total 0.8 mg/dL (0.2-1.3); Blood Urea Nitrogen 27 mg/dL (9-20); Carbon Dioxide 28 mmol/L (22-30); Chloride 103 mmol/L (98-107); Estimated CRCL calculation 36 ml/min; Estimated Glomerular Filt Rate 38; Glucose 113 mg/dL (65-110); Lipase 45 U/L (23-300); Potassium 5.4 mmol/L (3.4-5.0); Sodium 139 mmol/L (137-145)
[2023-06-13 16:41] LABS: Influenza A QL RT-PCR Negative (Negative); Influenza B QL RT-PCR Negative (Negative); RSV RNA, RT-PCR Negative (Negative); SARS-CoV-2 RNA PCR Negative (Negative)
--- NOTE | 2023-06-13 18:41 | ED.GENADULT ---
HPI - General Adult General Chief complaint: Fall Stated complaint: GLF Time Seen by Provider: 06/13/23 15:23 History of Present Illness HPI narrative: patient is an 83-year-old male with history of Lewy body dementia and Parkinson's who presents to the ER after a fall. Patient unable to provide history, provided by daughter. Patient is not on blood thinning agents. It is unknown whether he struck his head. Related Data Home Medications Medication Instructions Recorded Confirmed cholecalciferol (vitamin D3) 125 25 mcg PO DAILY 08/31/20 06/13/23 mcg (5,000 unit) tablet (Vitamin D3) clopidogrel 75 mg tablet (Plavix) 75 mg PO DAILY 08/31/20 06/13/23 isosorbide mononitrate 60 mg 60 mg PO DAILY 08/31/20 06/13/23 tablet,extended release 24 hr lisinopril 10 mg tablet 10 mg PO DAILY 08/31/20 06/13/23 metformin 500 mg tablet 500 mg PO BID 08/31/20 06/13/23 metoprolol tartrate 25 mg tablet 25 mg PO BID 08/31/20 06/13/23 nitroglycerin 0.4 mg sublingual 0.4 mg sublingual USEASDIRECTD PRN 08/31/20 06/13/23 tablet Chest Pain polyethylene glycol 3350 17 17 g PO DAILY 08/31/20 06/13/23 gram/dose oral powder (Miralax) furosemide 20 mg tablet 20 mg PO DAILY 09/23/20 06/13/23 quetiapine 25 mg tablet (Seroquel) 25 mg PO BID 09/23/20 06/13/23 acetaminophen 500 mg tablet 500 mg PO Q6H PRN Pain (Scale 02/26/21 06/13/23 Score 1-3) atorvastatin 40 mg tablet 40 mg PO HS 02/26/21 06/13/23 magnesium oxide 400 mg PO DAILY 02/26/21 06/13/23 pantoprazole 20 mg tablet,delayed 20 mg PO QAM 02/26/21 06/13/23 release elderberry fruit 460 mg-elderberry 1 cap PO DAILY 02/06/22 06/13/23 flower 115 mg capsule chlorpheniramine-dextromethorphan 1 tablet PO BID PRN sinus drainage 06/13/23 06/13/23 4 mg-30 mg tablet (Coricidin HBP Cough and Cold) polyvinyl alcohol 1.4 % eye drops 1 drp ophthalmic (eye) QID 06/13/23 06/13/23 (Artificial Tears (polyvinyl alcohol)) ranolazine 1,000 mg 1,000 mg PO Q12H 06/13/23 06/13/23 tablet,extended release,12 hr vit C-vit J-hkoehd-vztfobnd capsule 1 cap PO DAILY 06/13/23 06/13/23 Allergies Allergy/AdvReac Type Severity Reaction Status Date / Time ketorolac [From Toradol] Allergy Swelling Verified 02/11/22 10:36 Review of Systems Review of Systems: ROS unobtainable: Yes unobtainable due to mental status [facility] Past Medical History Medical History (Updated 06/13/23 @ 18:42 by Froylan Cuevas MD) Adenomatous colon polyp Anxiety Benign prostatic hyperplasia Chronic anemia Coronary artery disease History of multiple stents over the years and 4 vessel bypass in 1984. Dementia Gastroesophageal reflux disease Glaucoma Gout History of peptic ulcer disease Hyperlipidemia Hypertension Obstructive sleep apnea Peripheral arterial disease Type 2 diabetes mellitus Hemoglobin A1c was 6.4% on 09/01/2020. Surgical History Surgical History History of appendectomy History of colonoscopy with polypectomy History of coronary angioplasty with insertion of stent Multiple stents placed over the years. History of coronary artery bypass graft 4 vessel bypass on 05/30/[address] Downey at [facility]. History of orthopedic surgery Pinning of left fracture in the 1960s. History of toe surgery Right 1st toe surgery, patient states related to chronic gout. Family History Family History Mother Cancer Father Cancer Social History Social History Social History: The patient is . He is now a resident at [facility]. His still lives in [place]. The patient tells me that he had 5 children. He was in the [employer] and retired from [employer]. Lifelong nonsmoker. No alcohol or illicit substance use. His Zehra and daughter Chantelle Menard are his emergency contact. Code status: Do
[2023-06-13 19:03] LABS: Reflex Lactic Acid Yes or No Add Lactic
--- NOTE | 2023-06-13 19:07 | PM.IMHP ---
H&P: HPI History of Present Illness Date/Time: 06/13/23 22:00 Chief Complaint: Fall in bathroom. Narrative: This is an 83-year-old male with dementia, coronary artery disease, diabetes, hypertension, and several other comorbidities who presented to the emergency department via EMS from [facility] for evaluation after an unwitnessed fall in his bathroom. The patient is not able to provide much in the way of history given his significant short-term memory loss and due to the fact that he does not answer all questions for unclear reasons. As such a majority of the following is obtained via a review of his electronic medical records. Staff at his memory care unit report that he was found on the ground in his bathroom and the estimated he was down for approximately 10 to 15 minutes. The patient tells me he was feeling a bit lightheaded and dizzy while in the bathroom but he cannot provide me with any other specifics. He believes he may have briefly lost consciousness but cannot say for certain. He denies injury and head trauma in the fall. He complains of some pain in his right arm but he cannot further elaborate. He believes he had diarrhea earlier today. He denies headache, current dizziness, paresthesias, focal weakness, chest pain, shortness a breath, abdominal pain, nausea, and vomiting. Vital signs were stable upon arrival to the ED. labs were significant for an increase in BUN and creatinine from baseline at 271.70 respectively and a potassium of 5.4. He tested negative for influenza, RSV, and COVID. Brain CT showed no acute findings. Abdominal CT showed possible mild stercoral proctitis and moderate colonic fecal loading. He is being admitted in this setting for IV hydration and close monitoring. Review of Systems Review of Systems: Unable to be obtained accurately given his dementia. [facility] Past Medical History Medical History Adenomatous colon polyp Anxiety Benign prostatic hyperplasia Chronic anemia Coronary artery disease History of multiple stents over the years and 4 vessel bypass in 1984. Dementia Gastroesophageal reflux disease Glaucoma Gout History of peptic ulcer disease Hyperlipidemia Hypertension Obstructive sleep apnea Peripheral arterial disease Type 2 diabetes mellitus Hemoglobin A1c was 6.4% on 09/01/2020. Surgical History Surgical History History of appendectomy History of colonoscopy with polypectomy History of coronary angioplasty with insertion of stent Multiple stents placed over the years. History of coronary artery bypass graft 4 vessel bypass on 05/30/[address] Downey at [facility]. History of orthopedic surgery Pinning of left fracture in the 1960s. History of toe surgery Right 1st toe surgery, patient states related to chronic gout. Family History Family History Mother Cancer Father Cancer Social History Social History (Updated 06/13/23 @ 22:49 by Queenie Sin PA-C) Social History: Surrogate medical decision maker: Zehra, spouse. Code status: Do not resuscitate. Smoking status: Never smoker Alcohol intake: unknown Substance use: never Substance use type: does not use Do You Feel Safe in your Home?: Yes Lack of Transportation: No Lack of Food: Never True Current Housing: I Have Housing Concerned About Future Housing: No Difficulty Paying Gas/Electric Bills: No Difficulty Paying for Meds: No Currently Unemployed: No Education: Don't Know Difficulty w/ Childcare or Family Care: No Living arrangements: senior care Additional living arrangements comments: Memory care at [place]. He has 5 children. Additional occupation/education comments: He was in the [employer] and retired from [email or web address]. Spiritual care concerns: No Meds Home Medicat
[2023-06-13 19:23] LABS: Appearance Urine Clear (Clear); Bacteria Urine None Seen /hpf; Bilirubin Urine Negative (Negative); Blood Urine 1+ (Negative); Color Urine Yellow (Yellow); Glucose Urine UA Negative (Negative); Ketones Urine Negative (Negative); Leukocyte Esterase Ur 1+ LEU/UL (Negative); Need Manual Microscopic Reviewed; Nitrate Urine Negative (Negative); Protein Urine Trace mg/dL (Negative); Specific Grav Ur 1.025 (1.001-1.035); Squamous Epithelial Cell Urine Occasional /hpf (Few)
[2023-06-13 19:26] LABS: Add Urine Microscopic? YES
[2023-06-13 20:53] LABS: Lactic Acid 1.1 mmol/L (0.7-2.0)
--- NOTE | 2023-06-13 20:59 | ADMGEN ---
This patient, Franky Lal, was admitted to Medical Room 244-. Patient/family oriented to hospital policies and general routines including ID bracelet, bed and alarms, visiting hours, pain management, procedures, bathroom and other care routines, personal items, smoking policy, room service/diet, and visiting hours. Information on how to activate the Rapid Response Team has been discussed. Patient/Family are encouraged to report perceived risks to care and to ask questions if they do not understand what they are told or what they should do.
[2023-06-13 23:43] LABS: Anion Gap 8 mmol/L (8-16); Blood Urea Nitrogen 27 mg/dL (9-20); Calcium 8.7 mg/dL (8.4-10.2); Carbon Dioxide 26 mmol/L (22-30); Chloride 104 mmol/L (98-107); Estimated CRCL calculation 44 ml/min; Estimated Glomerular Filt Rate 48; Glucose 114 mg/dL (65-110); Potassium 4.3 mmol/L (3.4-5.0); Sodium 138 mmol/L (137-145)
[2023-06-13 23:46] LABS: CRP 0.6 mg/dL (<1.0); Creatine Kinase 96 U/L (55-170); Magnesium 1.8 mg/dL (1.6-2.3)
[2023-06-13 23:52] LABS: NT Pro B Type Natriuretic Pept 470 pg/mL (19.9-100)
[2023-06-14] VITALS (16 sets, daily range): BP systolic 135–189; BP diastolic 80–97; PULSE 68–88; RESP 15–18; TEMP 36.3–36.9; O2SAT 98–100
[2023-06-14 00:04] LABS: Procalcitonin 0.1 ng/mL
[2023-06-14 00:09] LABS: Hemoglobin A1C 6.4 % (<5.7)
[2023-06-14] MEDS: RANOLAZINE 500 MG TAB.ER.12H 1000 MG PO ×3 (00:37→21:27)
[2023-06-14 05:46] LABS: Hematocrit 36.5 % (42.0-52.0); Hemoglobin 11.8 g/dL (14.0-18.0); Mean Corpuscular HGB Conc 32.3 g/dl (32-36); Mean Corpuscular Hemoglobin 33.3 pg (26-34); Mean Corpuscular Volume 103.1 fl (80-100); Mean Platelet Volume 10.4 fl (7.4-10.4); Platelet Count Result 213 k/mm3 (150-375); Red Blood Count 3.54 M/mm3 (4.6-6.20); Red Cell Distribution Width 12.3 % (11.5-14.5); White Blood Count 4.7 K/mm3 (4.5-10.0)
[2023-06-14 06:00] LABS: Alanine Aminotransferase 13 U/L (6-50); Albumin Level 3.8 g/dL (3.5-5.1); Alkaline Phosphatase 65 U/L (38-126); Anion Gap 9 mmol/L (8-16); Aspartate Amino Transferase 24 U/L (17-59); Bilirubin,Total 0.9 mg/dL (0.2-1.3); Blood Urea Nitrogen 24 mg/dL (9-20); Calcium 8.5 mg/dL (8.4-10.2); Carbon Dioxide 24 mmol/L (22-30); Chloride 104 mmol/L (98-107); Estimated CRCL calculation 48 ml/min; Estimated Glomerular Filt Rate 52; Glucose 109 mg/dL (65-110); Potassium 3.6 mmol/L (3.4-5.0); Sodium 137 mmol/L (137-145)
[2023-06-14] MEDS: MAGNESIUM OXIDE 400 MG TABLET PO (08:16)
[2023-06-14] MEDS: CHOLECALCIFEROL 1,000 UNITS TABLET 1000 UNITS PO (08:16)
[2023-06-14] MEDS: METOPROLOL TARTRATE 25 MG TABLET PO ×2 (08:16→21:26)
[2023-06-14] MEDS: PANTOPRAZOLE SOD SESQUIHYDRATE 20 MG TAB PO (08:17)
[2023-06-14] MEDS: ARTIFICIAL TEARS OPHTH SOLN 15 ML BOTTLE 1 DROP EACH EYE ×4 (08:17→21:26)
[2023-06-14] MEDS: ISOSORBIDE MONONITRATE 60 MG TAB.ER.24H PO (08:17)
[2023-06-14] MEDS: OPTI-GEN TAB 1 TABLET PO (08:17)
[2023-06-14] MEDS: CLOPIDOGREL BISULFATE 75 MG TABLET PO (08:17)
[2023-06-14] MEDS: polyethylene glycoL 3350 17 GM POWD.PACK PO (08:18)
[2023-06-14] MEDS: SODIUM CHLORIDE 0.9% IV 1,000 ML 100 ML IV CONT ×2 (08:18→21:26)
[2023-06-14] MEDS: QUEtiapine FUMARATE 25 MG TABLET PO ×2 (08:23→21:26)
[2023-06-14 08:24] LABS: Glucose Point of Care 112 mg/dl (65-105)
[2023-06-14 12:12] LABS: Glucose Point of Care 129 mg/dl (65-105)
--- NOTE | 2023-06-14 12:32 | P.PNIM_ITS ---
Progress Note: A&P Assessment and Plan (1) Unwitnessed fall: Code(s): R29.6 - Repeated falls Status: Acute Assessment and Plan: * fall precautions * telemetry to rule out cardiac dysrhythmia * Monitor orthostatic vital signs * PT/OT ordered for eval and d/c planning - currently at [facility] (2) Acute kidney injury: Code(s): N17.9 - Acute kidney failure, unspecified Status: Acute Assessment and Plan: * could be secondary to UTI * Renal US ordered * Creatinine improved with fluid hydration - 1.3 today * eGFR 38 --> 52 * continue to trend and monitor (3) Hyperkalemia: Code(s): E87.5 - Hyperkalemia Status: Resolved Assessment and Plan: * K+ 5.4 on admission, 3.6 this morning * resolved with hydration (4) Abnormal urinalysis: Code(s): R82.90 - Unspecified abnormal findings in urine Status: Acute Assessment and Plan: * Urinalysis is abnormal and he has been started on ceftriaxone * pending urine culture (5) Abnormal chest CT: Code(s): R93.89 - Abnormal findings on diagnostic imaging of other specified body structures Status: Acute Assessment and Plan: * Chest x-ray showed possible atypical pneumonia versus edema. * Clinically he does not seem to be in congestive heart failure * ECHO ordered and pending read * Exam and clinical labs not indicative of pneumonia at this time, will hold off on treatment (6) Stercoral colitis: Code(s): K52.89 - Other specified noninfective gastroenteritis and colitis Status: Acute Assessment and Plan: * CT of the abdomen and pelvis showed possible mild stercoral colitis. * Soapsuds enema has been ordered if BM unsuccessful * Continue MiraLax daily. Added mag citrate. (7) Hypertension: Code(s): I10 - Essential (primary) hypertension Status: Chronic Assessment and Plan: * continue to monitor * continue metoprolol (8) Type 2 diabetes mellitus: Code(s): E11.9 - Type 2 diabetes mellitus without complications Status: Chronic Assessment and Plan: * Hold metformin given acute kidney injury. * Sliding scale insulin, Accu-Cheks, and hypoglycemic protocol. Plan Subjective Date/time seen: 06/14/23 12:32 Interval history: Patient is an 83 YO male with PMH of dementia, CAD, diabetes, hypertension, and several other comorbidities [place] [facility] [place] in his bathroom. Staff at his memory care unit report that he was found on the ground in his bathroom and the estimated he was down for approx imately 10 to 15 minutes. He denied injury and head trauma in the fall. He denies headache, current dizziness, paresthesias, focal weakness, chest pain, shortness a breath, abdominal pain, nausea, and vomiting. He tested negative for influenza, RSV, and COVID. Brain CT showed no acute findings. Abdominal CT showed possible mild stercoral proctitis and moderate colonic fecal loading. Patient is alert, but not oriented this morning. Seems to be his baseline. He is not in any distress. ECHO ordered, renal US ordered. UA culture pending, will continue Rocephin for time being until resulted. Due to CT findings, will order mag citrate in addition to Miralax. May need to consider enema if unsuccessful. Review of Systems Review of Systems: Unable to be obtained accurately given his dementia. ROS unobtainable: Yes unobtainable due to mental status Exam Narrative: General:?Well-developed, nontoxic
--- NOTE | 2023-06-14 12:32 | PM.IMPN ---
Progress Note: A&P Assessment and Plan (1) Unwitnessed fall: Code(s): R29.6 - Repeated falls Status: Acute Assessment and Plan: fall precautions telemetry to rule out cardiac dysrhythmia Monitor orthostatic vital signs PT/OT ordered for eval and d/c planning - currently at [facility] (2) Acute kidney injury: Code(s): N17.9 - Acute kidney failure, unspecified Status: Acute Assessment and Plan: could be secondary to UTI Renal US ordered Creatinine improved with fluid hydration - 1.3 today eGFR 38 --> 52 continue to trend and monitor (3) Hyperkalemia: Code(s): E87.5 - Hyperkalemia Status: Resolved Assessment and Plan: K+ 5.4 on admission, 3.6 this morning resolved with hydration (4) Abnormal urinalysis: Code(s): R82.90 - Unspecified abnormal findings in urine Status: Acute Assessment and Plan: Urinalysis is abnormal and he has been started on ceftriaxone pending urine culture (5) Abnormal chest CT: Code(s): R93.89 - Abnormal findings on diagnostic imaging of other specified body structures Status: Acute Assessment and Plan: Chest x-ray showed possible atypical pneumonia versus edema. Clinically he does not seem to be in congestive heart failure ECHO ordered and pending read Exam and clinical labs not indicative of pneumonia at this time, will hold off on treatment (6) Stercoral colitis: Code(s): K52.89 - Other specified noninfective gastroenteritis and colitis Status: Acute Assessment and Plan: CT of the abdomen and pelvis showed possible mild stercoral colitis. Soapsuds enema has been ordered if BM unsuccessful Continue MiraLax daily. Added mag citrate. (7) Hypertension: Code(s): I10 - Essential (primary) hypertension Status: Chronic Assessment and Plan: continue to monitor continue metoprolol (8) Type 2 diabetes mellitus: Code(s): E11.9 - Type 2 diabetes mellitus without complications Status: Chronic Assessment and Plan: Hold metformin given acute kidney injury. Sliding scale insulin, Accu-Cheks, and hypoglycemic protocol. Plan Subjective Date/time seen: 06/14/23 12:32 Interval history: Patient is an 83 YO male with PMH of dementia, CAD, diabetes, hypertension, and several other comorbidities admitted from [facility] after an unwitnessed fall in his bathroom. Staff at his memory care unit report that he was found on the ground in his bathroom and the estimated he was down for approximately 10 to 15 minutes. He denied injury and head trauma in the fall. He denies headache, current dizziness, paresthesias, focal weakness, chest pain, shortness a breath, abdominal pain, nausea, and vomiting. He tested negative for influenza, RSV, and COVID. Brain CT showed no acute findings. Abdominal CT showed possible mild stercoral proctitis and moderate colonic fecal loading. Patient is alert, but not oriented this morning. Seems to be his baseline. He is not in any distress. ECHO ordered, renal US ordered. UA culture pending, will continue Rocephin for time being until resulted. Due to CT findings, will order mag citrate in addition to Miralax. May need to consider enema if unsuccessful. Review of Systems Review of Systems: Unable to be obtained accurately given his dementia. ROS unobtainable: Yes unobtainable due to mental status Exam Narrative: General:?Well-developed, nontoxic-appearing male. No distress. HEENT:??Normocephalic, atraumatic.? PERRL, EOMI.? ? Neck:??Supple.? Respiratory:?Lungs are clear to auscultation bilaterally. Cardiovascular:??RRR with S1-S2.? Gastrointestinal:??Abdomen is soft and nondistended with hypoactive bowel sounds.?Denies pain with palpation. No voluntary guarding or rebound tenderness.? Skin:??Warm and dry.? Extremities:??No cyanosis or clubbing.? Trace bilateral lower extremity afshan
[2023-06-14] MEDS: MAGNESIUM CITRATE 300 ML BTL 150 ML PO (14:50)
[2023-06-14 16:46] LABS: Glucose Point of Care 111 mg/dl (65-105)
[2023-06-14 20:42] LABS: Glucose Point of Care 151 mg/dl (65-105)
[2023-06-14] MEDS: ATORVASTATIN 40 MG TABLET PO (21:26)
--- NOTE | 2023-06-14 22:56 | ECHO_ITS ---
Patient Info Name: Franky Lal Age: 83 years : 1940 Gender: Male Ht: 72 in Wt: 242 lbs BSA: 2.39 m2 HR: 74 bpm BP: 135 / 90 mmHg Heart Rhythm: Sinus Rhythm Technical Quality: Fair Exam Date: 06/14/2023 7:52 AM Exam Location: Echo Lab Patient Status: Inpatient Admit Date: 06/13/2023 Staff Ordering Physician: Queenie Sin PA-C Applications Processor: Evelin Robledo RDCS Attending Provider: Zack White MD Referring Physician: January ANDRADE; Exam Type: CA echo doppler color flow Study Info Indications R55 - Syncope and collapse Complete two-dimensional, color flow and Doppler transthoracic echocardiogram is performed. Summary 1. Complete two-dimensional, color flow and Doppler transthoracic echocardiogram is performed. 2. Normal left ventricular size with mild concentric hypertrophy. Overall good systolic function with ejection fraction greater than 70%. However, in one view, there appears to be basal inferior septal hypokinesis. Grade 2 diastolic dysfunction is present. 3. Left atrial chamber dimension is moderately enlarged. 4. There is moderate aortic valve calcification, with no stenosis. 5. There is mild tricuspid valve regurgitation. 6. No pulmonary hypertension, estimated pulmonary arterial systolic pressure is 32 mmHg. 7. Calcified aortic. 8. Probable normal sinus rhythm. Left Ventricle Left ventricular chamber dimension is normal. Left ventricular systolic function is normal, estimated at >70%. There is moderately increased left ventricular wall thickness. Left ventricular septal wall motion is normal. The left ventricular diastolic function is grade II diastolic dysfunction. Right Ventricle Right ventricular chamber dimension is normal. Right ventricular systolic function is normal. Left Atria Left atrial chamber dimension is moderately enlarged. Right Atria Right atrial chamber dimension is normal. Aortic Valve The aortic valve is trileaflet. There is no aortic valve sclerosis. There is no aortic valve stenosis. There is no aortic valve regurgitation. There is moderate aortic valve calcification, with no stenosis. Pulmonic Valve The pulmonic valve is normal. There is no pulmonic valve stenosis. There is no pulmonic regurgitation. Mitral Valve The mitral valve has normal leaflets. There is no mitral valve stenosis. There is trace mitral valve regurgitation. Tricuspid Valve The tricuspid valve leaflets are normal. There is no significant tricuspid valve stenosis. There is mild tricuspid valve regurgitation. No pulmonary hypertension, estimated pulmonary arterial systolic pressure is 32 mmHg. Pericardium/Pleural The pericardium appears normal. There is no pericardial effusion. Inferior Vena Cava Not well visualized inferior vena cava with >50% collapse upon inspiration consistent with Empty right atrial pressure, 10 mmHg. Aorta The aortic root size at the sinus of Valsalva is normal. The prox ascending aorta size is not well visualized. The aorta arch size is not well visualized measuring Empty. The abdominal aorta size is not well visualized. There is mild aortic atherosclerosis. Left Ventricular Outflow Tract Name Value Normal LVOT 2D LVOT Diameter 2.0 cm LVOT Doppler
[2023-06-15 04:00] VITALS: PULSE 61
[2023-06-15] MEDS: SODIUM CHLORIDE 0.9% IV 1,000 ML 100 ML IV CONT (04:51)
[2023-06-15 05:52] VITALS: BP 157/91; PULSE 75; RESP 18; TEMP 36.4; O2SAT 96
[2023-06-15 06:46] LABS: Basophils Percent Auto 0.3 % (0.2-1.2); Eosinophils Absolute Auto 0.2 K/mm3 (0-0.3); Eosinophils Percent Auto 2.7 % (0-4.4); Hematocrit 36.2 % (42.0-52.0); Hemoglobin 11.8 g/dL (14.0-18.0); Immature Granulocyte Absolute 0.02 K/mm3 (0.00-0.031); Immature Granulocyte Percent A 0.3 % (0-0.5); Lymphocytes Percent Auto 17.3 % (18.3-44.2); Mean Corpuscular HGB Conc 32.6 g/dl (32-36); Mean Corpuscular Hemoglobin 33.4 pg (26-34); Mean Corpuscular Volume 102.5 fl (80-100); Monocytes Absolute Auto 0.4 K/mm3 (0.1-0.6); Monocytes Percent Auto 6.9 % (2.6-8.5); Neutrophils Absolute Auto 4.6 K/mm3 (1.3-6.7); Neutrophils Percent Auto 72.5 % (45.5-73.1); Platelet Count Result 215 k/mm3 (150-375); Red Blood Count 3.53 M/mm3 (4.6-6.20); Red Cell Distribution Width 12.5 % (11.5-14.5); White Blood Count 6.4 K/mm3 (4.5-10.0)
[2023-06-15 07:02] LABS: Albumin Level 3.5 g/dL (3.5-5.1); Anion Gap 8 mmol/L (8-16); Blood Urea Nitrogen 17 mg/dL (9-20); Calcium 8.5 mg/dL (8.4-10.2); Carbon Dioxide 26 mmol/L (22-30); Chloride 106 mmol/L (98-107); Estimated CRCL calculation 61 ml/min; Estimated Glomerular Filt Rate > 60; Glucose 114 mg/dL (65-110); Phosphorus 2.9 mg/dL (2.5-4.5); Potassium 3.8 mmol/L (3.4-5.0); Sodium 140 mmol/L (137-145)
[2023-06-15 08:00] LABS: Glucose Point of Care 94 mg/dl (65-105)
[2023-06-15 09:29] VITALS: PULSE 72
[2023-06-15] MEDS: QUEtiapine FUMARATE 25 MG TABLET PO (09:29)
[2023-06-15] MEDS: ISOSORBIDE MONONITRATE 60 MG TAB.ER.24H PO (09:29)
[2023-06-15] MEDS: OPTI-GEN TAB 1 TABLET PO (09:29)
[2023-06-15] MEDS: CHOLECALCIFEROL 1,000 UNITS TABLET 1000 UNITS PO (09:29)
[2023-06-15] MEDS: METOPROLOL TARTRATE 25 MG TABLET PO (09:29)
[2023-06-15] MEDS: MAGNESIUM OXIDE 400 MG TABLET PO (09:29)
[2023-06-15] MEDS: PANTOPRAZOLE SOD SESQUIHYDRATE 20 MG TAB PO (09:29)
[2023-06-15] MEDS: RANOLAZINE 500 MG TAB.ER.12H 1000 MG PO (09:29)
[2023-06-15] MEDS: ARTIFICIAL TEARS OPHTH SOLN 15 ML BOTTLE 1 DROP EACH EYE ×2 (09:30→12:38)
[2023-06-15] MEDS: CLOPIDOGREL BISULFATE 75 MG TABLET PO (09:30)
[2023-06-15] MEDS: polyethylene glycoL 3350 17 GM POWD.PACK PO (09:30)
--- NOTE | 2023-06-15 09:39 | PCPTNOTE ---
attempted PT evaluation, pt unable to keep eyes open and not responding to yes/no questions, will try again this PM
--- NOTE | 2023-06-15 09:43 | PCOTNOTE ---
Patient is not alert and able to participate in therapy at this time. Will check back later.
--- NOTE | 2023-06-15 11:05 | PM.DS ---
DS: Admitting Diagnosis Discharge Date 06/15/23 Admitting Diagnosis Unwitnessed fall Acute kidney injury Hyperkalemia Abnormal urinalysis Abnormal chest CT Stercoral colitis Hypertension Type 2 diabetes mellitus DS: Discharge Diagnosis Discharge Diagnosis (1) Unwitnessed fall: Code(s): R29.6 - Repeated falls Status: Acute (2) Acute kidney injury: Code(s): N17.9 - Acute kidney failure, unspecified Status: Acute (3) Hyperkalemia: Code(s): E87.5 - Hyperkalemia Status: Resolved (4) Abnormal urinalysis: Code(s): R82.90 - Unspecified abnormal findings in urine Status: Acute (5) Abnormal chest CT: Code(s): R93.89 - Abnormal findings on diagnostic imaging of other specified body structures Status: Acute (6) Stercoral colitis: Code(s): K52.89 - Other specified noninfective gastroenteritis and colitis Status: Acute (7) Hypertension: Code(s): I10 - Essential (primary) hypertension Status: Chronic (8) Type 2 diabetes mellitus: Code(s): E11.9 - Type 2 diabetes mellitus without complications Status: Chronic DS: Summary Hospital Course Reason for hospitalization: Fall ESHA hyperkalemia Hospital Course: This is an 83-year-old male who presented to the hospital on 06/13/2023 after sustaining a fall. Work up in the hospital included a chest x-ray that revealed mild bilateral interstitial infiltrates which may represent edema or atypical pneumonia. Head CT was negative for any acute abnormality. CT of the abdomen shown possible mild stercoral proctitis. Renal US shown mild bladder wall thickening, possible cystitis. Echo was done which shown normal LV systolic function with an EF of greater than 70%, grade II diastolic dysfunction, RV systolic function was normal. EKG showing NSR with borderline left axis deviation with a rate of 67, prolonged QTc. Labs shown K+ 5.4, BUN 27, Creatinine 1.70, eGFR 38, Lactic acid 2.6 with repeat 1.1, proBNP was 470, C reactive protein 0.6, total CK 96, procal 0.1, magnesium 1.8, Hgb A1 C 6.4. UA was obtained and shown !+ blood, 6-10 urine RBC, 11-20 urine wBC. Patient was initially started on Rocephin. Urine culture was showing less than 10,000 gram negative organisms on final read. Rocephin was discontinued post culture. PT and OT worked with patient while inpatient. Creatinine corrected back to baseline. Patient is stable for discharge back to his facility. He will need to follow up with PCP in 1 week. Final diagnosis: Hyperkalemia, ESHA, Fall Status at Discharge Cognitive/behavioral status at discharge: Patient is alert to voice oriented x1 Functional status at discharge: wheelchair bound Overall status at discharge: patient is progressing back to baseline Time Spent with Patient Time attestation: Total time spent providing and/or coordinating discharge services: Time spent: Greater than 30 minutes Exam Narrative: General: In no acute distress, well nourished Head: atraumatic, no encephalopathy Eyes: EOMI, PERRLA, sclera clear ENT: moist mucous membranes, nasal passages clear Neck: supple, no JVD, no adenopathy, trachea midline Cardiac: Normal S1 and S2. No murmur, gallops or friction rubs, peripheral pulses intact. Respiratory: Lungs clear to auscultation, no adventitious lung sounds Gastrointestinal: soft, non-distended, non-tender, normoactive bowel sounds. : voiding without difficulty. Extremities: moves all extremities well, no edema Skin: clean, dry, intact. No wounds or lesions. Neuro: Alert and oriented x1, cranial nerves intact, no neuro deficits. Psych: normal mood, normal affect DS: Data Data Completed and Pending Completed studies during hospitalization: Chest x-ray Head CT Abdomen/pelvis CT Renal ultrasound Pending studies at discharge: None Labs on day of discharge: Labs from last 24 hours 06/15/23 06/15/23 06/14/23 07:55 06:22 20:38 WBC 6.4 RBC 3.53 L
[2023-06-15 11:48] LABS: Glucose Point of Care 136 mg/dl (65-105)
[2023-06-15 13:45] VITALS: BP 129/72; PULSE 60; RESP 16; TEMP 36.8; O2SAT 98
[2023-06-15 14:47] LABS: SARS-CoV-2 RNA PCR Negative (Negative)
== END 2023-06-15 15:52 ==
LOC: ANHED 18:42 → ANH2MED 21:18
PROVIDERS: Nurse Practitioner; Nurse Practitioner Acute Care; Physician Assistant; Admitting Provider Family Medicine; Emergency Provider Emergency Medicine; PCP Internal Medicine; Visit Provider Internal Medicine
DX: R29.6 Repeated falls (principal); N17.9 Acute kidney failure, unspecified; E87.5 Hyperkalemia; R82.90 Unspecified abnormal findings in urine; R93.89 Abnormal findings on diagnostic imaging of other specified body structures; K52.89 Other specified noninfective gastroenteritis and colitis; I10 Essential (primary) hypertension; G31.83 Neurocognitive disorder with Lewy bodies; F02.80 Dementia in other diseases classified elsewhere, unspecified severity, without behavioral disturbance, psychotic disturbance, mood disturbance, and anxiety; G20.A1 Parkinson's disease without dyskinesia, without mention of fluctuations; E11.51 Type 2 diabetes mellitus with diabetic peripheral angiopathy without gangrene; F41.9 Anxiety disorder, unspecified; Z20.822 Contact with and (suspected) exposure to COVID-19; I08.2 Rheumatic disorders of both aortic and tricuspid valves; I70.0 Atherosclerosis of aorta; D64.9 Anemia, unspecified; N40.0 Benign prostatic hyperplasia without lower urinary tract symptoms; I25.10 Atherosclerotic heart disease of native coronary artery without angina pectoris; Z95.1 Presence of aortocoronary bypass graft; K21.9 Gastro-esophageal reflux disease without esophagitis; H40.9 Unspecified glaucoma; E78.5 Hyperlipidemia, unspecified; G47.33 Obstructive sleep apnea (adult) (pediatric); M10.9 Gout, unspecified; Z66 Do not resuscitate; Z79.02 Long term (current) use of antithrombotics/antiplatelets; Z79.84 Long term (current) use of oral hypoglycemic drugs; Z79.1 Long term (current) use of non-steroidal anti-inflammatories (NSAID); Z79.899 Other long term (current) drug therapy
CPT/HCPCS: 36415; 70450; 71045; 74177; 76775; 80048; 80053; 80069; 81001; 82550; 82948; 83036; 83605; 83690; 83735; 83880; 84145; 85025; 85027; 86140; 87086; 87088; 87635; 87637; 93306; 96361; 96365; 97161; 97165; A9270; G0378; J0696; J7030; Q9967

== ENCOUNTER 2023-10-12 12:43 | Inpatient (IN) | payer MEDICARE, SELFPAY ==
[2023-10-12] VITALS (14 sets, daily range): BP systolic 104–159; BP diastolic 62–93; PULSE 76–90; RESP 13–20; TEMP 36.3–36.7; O2SAT 90–100
--- NOTE | ~2023-10-12 | CT_ITS ---
EXAMINATION: CT brain wo con DATE: 10/12/2023 14:07 INDICATION: Mental status changes TECHNIQUE: Computed tomography (CT) of the head was performed without intravenous contrast. The dose- length product was 681.00 mGy-cm. Automated exposure control and iterative reconstruction technique were employed. COMPARISON: CT dated 06/13/2023 FINDINGS: Generalized atrophy. There are scattered mild periventricular and subcortical white matter changes, most likely related to small vessel ischemic disease (microangiopathy). There is intracrania l atherosclerosis. No acute infarction, hemorrhage, mass or mass effect. IMPRESSION: 1. No acute intracranial abnormality. Reviewed, dictated and finalized at location B.
--- NOTE | ~2023-10-12 | XR_ITS ---
XR abdomen/kub 1V 10/13/2023 14:17 Indication: Fecal impaction. Colitis. Procedure: KUB Comparison: No prior studies for comparison. Findings: Bowel gas pattern nonobstructive. Moderate colonic fecal loading. Penile prosthetic device noted. No abnormal calcifications. Moderate lumbar spondylosis. Impression: 1: Nonobstructive bowel gas pattern with moderate colonic and rectal fecal loading. Reviewed, dictated and finalized at location B. Impression: 1: Nonobstructive bowel gas pattern with moderate colonic and rectal fecal load ing.
--- NOTE | ~2023-10-12 | CT_ITS ---
EXAMINATION: CT cervical spine wo con DATE: 10/12/2023 14:07 INDICATION: Mental status changes. Weakness. Lethargy. TECHNIQUE: Computed tomography (CT) of the cervical spine was performed without intravenous contrast. The dose-length product was 568 mGy-cm. Automated exposure control and iterative reconstruction tech nique were employed. Automated exposure control and iterative reconstruction technique were employed. COMPARISON: None FINDINGS: Small bilateral mastoid effusions. There is intracranial atherosclerosis. There is multilev el disc narrowing with degenerative anterolisthesis at C6-7 and C7-T1. Wedge-shaped appearance to T1, likely chronic. There is moderate multilevel uncinate and facet hypertrophy. Mild levoscoliosis. Odo ntoid process is normal. Lung apices are unremarkable. IMPRESSION: 1. No acute abnormality of the cervical spine. Reviewed, dictated and finalized at location B.
--- NOTE | ~2023-10-12 | CT_ITS ---
EXAMINATION: CT chest abdomen pelvis w con DATE: 10/12/2023 14:08 INDICATION: Sepsis, abdominal pain and unwitnessed fall TECHNIQUE: Computed tomography (CT) of the chest, abdomen, and pelvis was performed with 100 mL Omnip aque-350 intravenous contrast. Automated exposure control and iterative reconstruction technique were employed. The dose-length product was 1846.07 mGy-cm. COMPARISON: CT abdomen and pelvis dated 06/13/2023 FINDINGS: CHEST CT: Moderate respiratory motion. Mild dependent atelectasis in the bilateral lower lungs. Heart size is n ormal. Atherosclerotic coronary artery calcification. Median sternotomy wires and mediastinal surgica l clips are seen, likely from prior coronary artery bypass grafting. Aortic valve calcification. Thor acic aorta is normal in caliber with no dissection. No pathologically enlarged thoracic lymphadenopat hy. Severe bilateral glenohumeral osteoarthritis. Moderate thoracic spondylosis with chronic appearin g mild anterior wedging at a few lower thoracic vertebral bodies. ABDOMEN/PELVIS CT: Liver, gallbladder, spleen, pancreas, bilateral adrenal glands and kidneys are normal. There is a lar ge amount of stool in the distal colon with persistent mild wall thickening at the rectum and mild pe rirectal stranding is prominent in the presacral space which remains most suggestive of stercoral col itis. No bowel obstruction. The appendix is not visualized. No pericecal inflammatory change to sugge st acute appendicitis. Partially decompressed bladder is unremarkable aside from change of a prior pr ostatectomy. [place] for a penile implant is seen within the right inguinal canal. No free intraper itoneal gas or fluid. No pathologically enlarged abdominal or pelvic lymphadenopathy. There is calcif ied atherosclerosis of the aorta and many of the other arteries. Moderate lumbar spondylosis with 3 m m anterolisthesis L4 on L5. IMPRESSION: 1. Similar pattern of a large amount of distal colonic stool with mild wall thickening and surroundin g inflammatory stranding at the rectum most consistent with mild stercoral colitis. 2. Mild wall thickening of the bladder which could be due to incomplete distention, sequela of chroni c outlet obstruction with change of prior prostatectomy or cystitis either acute or chronic. There is small amount of infiltrate stranding surrounding the bladder which could be seen with cystitis and w ould correlate with urinalysis. 3. No acute cardiopulmonary disease. Reviewed, dictated and finalized at location A. IMPRESSION: 1. Similar pattern of a large amount of distal colonic stool with mild wall thi ckening and surrounding inflammatory stranding at the rectum most consistent wi th mild stercoral colitis. 2. Mild wall thickening of the bladder which could be due to incomplete distent ion, sequela of chronic outlet obstruction with change of prior prostatectomy o r cystitis either acute or chronic. There is small amount of infiltrate strandi ng surrounding the bladder which could be seen with cystitis and would correlat e with urinalysis. 3. No acute cardiopulmonary disease.
--- NOTE | ~2023-10-12 | CT_ITS ---
CT head without contrast Indication: Altered mental status COMPARISON: 10/12/2023 Technique: Serial scans were obtained through the brain without the administration of contrast. Dose reduction technique was used on this scan by utilizing automated exposure control and iterative recon struction technique. The dose-length product (DLP) was 1210.67 mGy-cm. Findings: There is no evidence of intracranial hemorrhage, mass lesion, or acute infarct. The ventri cles and subarachnoid spaces are dilated, consistent with moderate to advanced atrophy. Low attenuat ion regions are seen within the periventricular white matter bilaterally, likely representing changes from chronic microvascular ischemic disease. There is no evidence of edema, mass effect or midline shift. The visualized paranasal sinuses and mastoid air cells are clear. Impression: No intracranial hemorrhage, mass, or acute infarct. Atrophy and chronic white matter changes, as above. Reviewed, dictated and finalized at [facility]. Impression: No intracranial hemorrhage, mass, or acute infarct. Atrophy and chronic white matter changes, as above.
--- NOTE | ~2023-10-12 | CT_ITS ---
Non-contrast CT scan of the Abdomen and Pelvis Clinical indication: Altered mental status Technique: 2.5 mm axial scans were obtained through the abdomen and pelvis without intravenous or or al contrast. Dose reduction technique was used on this scan by utilizing automated exposure control a nd iterative reconstruction technique. The dose-length product (DLP) was 1581.17 mGy-cm. COMPARISON: 10/12/2023 Findings: Images through the lung bases reveal probable minimal bibasilar atelectatic changes. There is no evidence of renal or ureteral calculi. The kidneys and the ureters are nondilated. The liver, spleen, pancreas, gallbladder, and adrenals appear normal.. There are atherosclerotic calc ifications of the aorta. There are severe atherosclerotic calcifications at the SMA origin and left r enal artery origin. There is no evidence of bowel obstruction. Prominent stool noted at the rectum in the remainder of th e large bowel. Images through the pelvis were performed. There is no evidence of ascites or lymphadenopathy. Urinary bladder unremarkable. No pelvic mass evident. Impression: Probable constipation and possible fecal impaction. Extensive atherosclerotic calcification, as above. Reviewed, dictated and finalized at location . Impression: Probable constipation and possible fecal impaction. Extensive atherosclerotic calcification, as above.
--- NOTE | ~2023-10-12 | XR_ITS ---
XR chest 2V 10/12/2023 14:13 Indication: Sepsis Procedure: 2 view chest Comparison: Chest x-ray dated 06/13/2023 Findings: Status post median sternotomy for CABG. Cardiomegaly. Stable bibasilar atelectasis/scarring . Shallow inspiration with crowding of the pulmonary vessels. No acute focal pneumonia, edema or effu anila. No pneumothorax. Impression: 1: No acute cardiopulmonary disease. Reviewed, dictated and finalized at location [facility]. Impression: 1: No acute cardiopulmonary disease.
--- NOTE | 2023-10-12 13:11 | ECG_ITS ---
SEE SCANNED COPY FOR CONFIRMED REPORT MTDD
--- NOTE | 2023-10-12 13:35 | ED.AMS ---
HPI - Altered Mental Status General Chief Complaint: Altered Mental Status Stated Complaint: ams Time Seen by Provider: 10/12/23 13:30 History of Present Illness HPI narrative: Patient is an 83 year old male here with lethargy and low blood pressure. Patient provides no history. Spoke with his facility for more information. Staff was escorting him to his room, noted he seemed like he could not walk anymore, lowered him down to floor, BP was 74/41 for staff. He was responding to name but otherwise seemed lethargic. No fall. At baseline he is AxO 1-2, knows his name and his . They note one episode prior like this for possible bowel obstruction. Miralax was stopped in May, noted some diarrhea recently. No other persons sick at facility right now. Related Data Home Medications Medication Instructions Recorded Confirmed cholecalciferol (vitamin D3) 125 25 mcg PO DAILY 08/31/20 10/12/23 mcg (5,000 unit) tablet (Vitamin D3) clopidogrel 75 mg tablet (Plavix) 75 mg PO DAILY 08/31/20 10/12/23 isosorbide mononitrate 60 mg 60 mg PO DAILY 08/31/20 10/12/23 tablet,extended release 24 hr lisinopril 10 mg tablet 10 mg PO DAILY 08/31/20 10/12/23 metformin 500 mg tablet 500 mg PO BID 08/31/20 10/12/23 metoprolol tartrate 25 mg tablet 25 mg PO BID 08/31/20 10/12/23 nitroglycerin 0.4 mg sublingual 0.4 mg sublingual USEASDIRECTD PRN 08/31/20 10/12/23 tablet Chest Pain polyethylene glycol 3350 17 17 g PO DAILY 08/31/20 10/12/23 gram/dose oral powder (Miralax) furosemide 20 mg tablet 20 mg PO DAILY 09/23/20 10/12/23 quetiapine 25 mg tablet (Seroquel) 25 mg PO BID 09/23/20 10/12/23 acetaminophen 500 mg tablet 500 mg PO Q6H PRN Pain (Scale 02/26/21 10/12/23 Score 1-3) atorvastatin 40 mg tablet 40 mg PO HS 02/26/21 10/12/23 magnesium oxide 400 mg PO DAILY 02/26/21 10/12/23 pantoprazole 20 mg tablet,delayed 20 mg PO QAM 02/26/21 10/12/23 release elderberry fruit 460 mg-elderberry 1 cap PO DAILY 02/06/22 10/12/23 flower 115 mg capsule chlorpheniramine-dextromethorphan 1 tablet PO BID PRN sinus drainage 06/13/23 10/12/23 4 mg-30 mg tablet (Coricidin HBP Cough and Cold) polyvinyl alcohol 1.4 % eye drops 1 drp ophthalmic (eye) QID 06/13/23 10/12/23 (Artificial Tears (polyvinyl alcohol)) ranolazine 1,000 mg 1,000 mg PO Q12H 06/13/23 10/12/23 tablet,extended release,12 hr vit C-vit Y-snshbu-ltvpsegh capsule 1 cap PO DAILY 06/13/23 10/12/23 Allergies Allergy/AdvReac Type Severity Reaction Status Date / Time ketorolac [From Toradol] Allergy Swelling Verified 02/11/22 10:36 Review of Systems Review of Systems: ROS unobtainable: Yes unobtainable due to mental status [facility] Past Medical History Medical History Adenomatous colon polyp Anxiety Benign prostatic hyperplasia Chronic anemia Coronary artery disease History of multiple stents over the years and 4 vessel bypass in 1984. Dementia Gastroesophageal reflux disease Glaucoma Gout History of peptic ulcer disease Hyperlipidemia Hypertension Obstructive sleep apnea Peripheral arterial disease Type 2 diabetes mellitus Hemoglobin A1c was 6.4% on 09/01/2020. Surgical History Surgical History History of appendectomy History of colonoscopy with polypectomy History of coronary angioplasty with insertion of stent Multiple stents placed over the years. History of coronary artery bypass graft 4 vessel bypass on 05/30/[address] Downey at [facility]. History of orthopedic surgery Pinning of left fracture in the 1960s. History of toe surgery Right 1st toe surgery, patient states related to chronic gout. Family History Family History Mother Cancer Father Cancer Social History Social History (Updated 06/13/23 @ 22:49 by Queenie Sin PA-C) Social History: [place]
[2023-10-12 13:54] LABS: Appearance Urine Clear (Clear); Bacteria Urine None Seen /hpf; Bilirubin Urine Negative (Negative); Blood Urine Negative (Negative); Color Urine Dark Yellow (Yellow); Glucose Urine UA Negative (Negative); Ketones Urine Negative (Negative); Leukocyte Esterase Ur 1+ LEU/UL (Negative); Need Manual Microscopic Reviewed; Nitrate Urine Negative (Negative); Non Pathogenic Casts 0-2; Protein Urine Negative (Negative); RBC Urine 0-2 /hpf (0-2); Specific Grav Ur 1.022 (1.001-1.035); Squamous Epithelial Cell Urine None Seen /hpf (Few); WBC Urine 0-5 /hpf (0-3)
[2023-10-12 13:56] LABS: Add Urine Microscopic? YES
[2023-10-12 13:58] LABS: Estimated CRCL calculation 30 ml/min; Estimated Glomerular Filt Rate 36
[2023-10-12 14:44] LABS: Basophils Percent Auto 0.2 % (0.2-1.2); Eosinophils Percent Auto 0.4 % (0-4.4); Hematocrit 35.5 % (42.0-52.0); Hemoglobin 11.7 g/dL (14.0-18.0); Immature Granulocyte Absolute 0.03 K/mm3 (0.00-0.031); Immature Granulocyte Percent A 0.4 % (0-0.5); Lymphocytes Absolute Auto 0.73 K/mm3 (0.9-3.2); Lymphocytes Percent Auto 8.6 % (18.3-44.2); Mean Corpuscular Hemoglobin 34.3 pg (26-34); Mean Corpuscular Volume 104.1 fl (80-100); Mean Platelet Volume 10.1 fl (7.4-10.4); Monocytes Absolute Auto 0.4 K/mm3 (0.1-0.6); Neutrophils Absolute Auto 7.2 K/mm3 (1.3-6.7); Neutrophils Percent Auto 85.4 % (45.5-73.1); Platelet Count Result 215 k/mm3 (150-375); Red Blood Count 3.41 M/mm3 (4.6-6.20); Red Cell Distribution Width 12.8 % (11.5-14.5); White Blood Count 8.5 K/mm3 (4.5-10.0)
[2023-10-12 14:56] LABS: Alanine Aminotransferase 17 U/L (6-50); Alkaline Phosphatase 57 U/L (38-126); Anion Gap 6 mmol/L (4-12); Aspartate Amino Transferase 20 U/L (17-59); Bilirubin,Total 0.7 mg/dL (0.2-1.3); Blood Urea Nitrogen 30 mg/dL (9-20); Calcium 9.2 mg/dL (8.4-10.2); Carbon Dioxide 29 mmol/L (22-30); Chloride 107 mmol/L (98-107); Estimated CRCL calculation 32 ml/min; Estimated Glomerular Filt Rate 38; Glucose 115 mg/dL (65-110); Lactic Acid Reflex 2.6 mmol/L (0.7-2.0); Potassium 4.5 mmol/L (3.4-5.0); Sodium 142 mmol/L (137-145)
[2023-10-12 15:02] LABS: Prothrombin Time 13.9 Seconds (11.1-14.7)
[2023-10-12 15:03] LABS: Partial Thromboplastin Time 25.8 Seconds (22.3-36.8)
[2023-10-12 15:05] LABS: Creatine Kinase 121 U/L (55-170)
[2023-10-12 15:11] LABS: CRP < 0.5 mg/dL (<1.0); Lipase 60 U/L (23-300)
[2023-10-12 15:20] LABS: Influenza A QL RT-PCR Negative (Negative); Influenza B QL RT-PCR Negative (Negative); RSV RNA, RT-PCR Negative (Negative); SARS-CoV-2 RNA PCR Negative (Negative)
[2023-10-12 15:34] LABS: Troponin I < 0.012 ng/mL (0.000-0.034)
[2023-10-12 17:41] LABS: Reflex Lactic Acid Yes or No Add Lactic
[2023-10-12 18:06] LABS: Lactic Acid 1.7 mmol/L (0.7-2.0)
--- NOTE | 2023-10-12 19:45 | PM.IMHP ---
H&P: HPI History of Present Illness Date/Time: 10/12/23 19:45 Chief Complaint: Weakness Narrative: 83-year-old male with a history of advanced dementia (A&Ox1, residing at [facility]), anxiety, gout, peptic ulcer disease, hypertension, JOSE, hyperlipidemia, peripheral artery disease, CAD, vug-rhvwmcp-hvegvoxok diabetes mellitus, GERD, chronic anemia, BPH, CKD presents with weakness from his permanent residence. History is taken from the at bedside, [place], and ER report as the patient does not offer history due to his dementia. Staff was escorting the patient to his room and he appeared over the weekend he was lower down to the floor. Blood pressure at that time was 74/41 and he appear lethargic. Reportedly the patient was on MiraLax but that was stopped in May and he has been spending much of his days straining on the toilet. reports she has noted some diarrhea, she visits him daily. General surgery consulted from the ER. Advised to administer soapsuds enema they will consult tomorrow. Patient not hypotensive on arrival to the ER. Was administered a L of lactated Ringer's. Review of Systems Review of Systems: All systems reviewed & are unremarkable except as noted in HPI and below (Subjective) [facility] Past Medical History Medical History Adenomatous colon polyp Anxiety Benign prostatic hyperplasia Chronic anemia Coronary artery disease History of multiple stents over the years and 4 vessel bypass in 1984. Dementia Gastroesophageal reflux disease Glaucoma Gout History of peptic ulcer disease Hyperlipidemia Hypertension Obstructive sleep apnea Peripheral arterial disease Type 2 diabetes mellitus Hemoglobin A1c was 6.4% on 09/01/2020. Surgical History Surgical History History of appendectomy History of colonoscopy with polypectomy History of coronary angioplasty with insertion of stent Multiple stents placed over the years. History of coronary artery bypass graft 4 vessel bypass on 05/30/[address] Downey at [facility]. History of orthopedic surgery Pinning of left fracture in the 1960s. History of toe surgery Right 1st toe surgery, patient states related to chronic gout. Family History Family History Mother Cancer Father Cancer Social History Social History (Updated 06/13/23 @ 22:49 by Queenie Sin PA-C) Social History: Surrogate medical decision maker: Zehra, spouse. Code status: Do not resuscitate. Smoking status: Never smoker Alcohol intake: never Substance use: never Substance use type: does not use Do You Feel Safe in your Home?: Yes Lack of Transportation: No Lack of Food: Never True Current Housing: I Have Housing Concerned About Future Housing: No Difficulty Paying Gas/Electric Bills: No Difficulty Paying for Meds: No Currently Unemployed: No Education: Don't Know Difficulty w/ Childcare or Family Care: No Living arrangements: care home Additional living arrangements comments: Memory care at [facility]. He has 5 children. Additional occupation/education comments: He was in the [employer] and retired from [employer]. Spiritual care concerns: No Meds Home Medications and Allergies Home Medications Medication Instructions Recorded Confirmed Type cholecalciferol (vitamin D3) 125 25 mcg PO DAILY 08/31/20 06/13/23 History mcg (5,000 unit) tablet (Vitamin D3) clopidogrel 75 mg tablet (Plavix) 75 mg PO DAILY 08/31/20 06/13/23 History isosorbide mononitrate 60 mg 60 mg PO DAILY 08/31/20 06/13/23 History tablet,extended release 24 hr lisinopril 10 mg tablet 10 mg PO DAILY 08/31/20 06/13/23 History metformin 500 mg tablet 500 mg PO BID 08/31/20 06/13/23 History metoprolol tartrate 25 mg tablet 25 mg PO BID 08/31/20 06/13/23 His
[2023-10-12] MEDS: LACTATED RINGERS 1,000 ML 100 ML IV CONT (21:37)
[2023-10-13 06:00] VITALS: BP 115/86; PULSE 84; RESP 16; TEMP 36.3; O2SAT 99
[2023-10-13 06:54] LABS: Basophils Percent Auto 0.3 % (0.2-1.2); Eosinophils Absolute Auto 0.1 K/mm3 (0-0.3); Eosinophils Percent Auto 1.5 % (0-4.4); Hematocrit 35.6 % (42.0-52.0); Hemoglobin 11.9 g/dL (14.0-18.0); Immature Granulocyte Absolute 0.02 K/mm3 (0.00-0.031); Immature Granulocyte Percent A 0.3 % (0-0.5); Lymphocytes Absolute Auto 1.24 K/mm3 (0.9-3.2); Lymphocytes Percent Auto 18.6 % (18.3-44.2); Mean Corpuscular HGB Conc 33.4 g/dl (32-36); Mean Corpuscular Hemoglobin 34.4 pg (26-34); Mean Corpuscular Volume 102.9 fl (80-100); Mean Platelet Volume 10.1 fl (7.4-10.4); Monocytes Absolute Auto 0.5 K/mm3 (0.1-0.6); Monocytes Percent Auto 7.2 % (2.6-8.5); Neutrophils Absolute Auto 4.8 K/mm3 (1.3-6.7); Neutrophils Percent Auto 72.1 % (45.5-73.1); Platelet Count Result 219 k/mm3 (150-375); Red Blood Count 3.46 M/mm3 (4.6-6.20); Red Cell Distribution Width 12.7 % (11.5-14.5); White Blood Count 6.7 K/mm3 (4.5-10.0)
[2023-10-13 07:02] LABS: Anion Gap 8 mmol/L (4-12); Blood Urea Nitrogen 29 mg/dL (9-20); Carbon Dioxide 25 mmol/L (22-30); Chloride 108 mmol/L (98-107); Estimated CRCL calculation 36 ml/min; Estimated Glomerular Filt Rate 44; Glucose 134 mg/dL (65-110); Potassium 4.2 mmol/L (3.4-5.0); Sodium 141 mmol/L (137-145)
[2023-10-13 07:59] LABS: Glucose Point of Care 124 mg/dl (65-105)
[2023-10-13] MEDS: PANTOPRAZOLE SODIUM IV 40 MG VIAL IV PUSH (08:27)
[2023-10-13] MEDS: LACTATED RINGERS 1,000 ML 100 ML IV CONT ×2 (08:27→23:02)
[2023-10-13 11:36] LABS: Glucose Point of Care 125 mg/dl (65-105)
--- NOTE | 2023-10-13 14:00 | PM.CNGS ---
Assessment and Plan Assessment and plan (1) Stercoral colitis: Code(s): K52.89 - Other specified noninfective gastroenteritis and colitis Status: Acute Assessment and Plan: I have reviewed the CT. Patient has evidence of fecal impaction leading to stercoral colitis. He does not appear septic and has no abdominal complaints at this time. He did have bowel movements with the soapsuds enemas. Patient is an unreliable historian, therefore I would like to get a follow-up KUB today. Will start clear liquids and MiraLax. If x-ray looks okay, then diet can probably be advanced as tolerated. (2) Acute constipation: Code(s): K59.00 - Constipation, unspecified Status: Acute (3) Dementia: Code(s): F03.90 - Unspecified dementia, unspecified severity, without behavioral disturbance, psychotic disturbance, mood disturbance, and anxiety Status: Chronic History of Present Illness Consult details Consult date: 10/13/23 Reason for consult: other (fecal impaction, stercoral colitis) Requesting physician: Lolita Méndez MD Narrative: This is an 83-year-old man who presented to the emergency department yesterday with hypotension. He has dementia and history is unable to be obtained from patient. A chart review was performed as as discussions emergency physician. The patient had some history of constipation has had stercoral colitis in the past. He was on MiraLax daily but this was discontinued in May. A CT of his abdomen pelvis was performed in the emergency department and he now showing signs of stercoral colitis again. He denies any abdominal pain. He has 3 bowel movements charted this morning. He did receive a soapsuds enema yesterday as well as this morning. Review of Systems Review of Systems: All systems reviewed & are unremarkable except as noted in HPI and below Constitutional: Constitutional: Denies chills and Denies fever(s) Cardiovascular: Cardiovascular: Denies chest pain and Denies dyspnea Respiratory: Respiratory: Denies dyspnea Gastrointestinal: Gastrointestinal: Reports as per HPI [facility] Past Medical History Medical History Adenomatous colon polyp Anxiety Benign prostatic hyperplasia Chronic anemia Coronary artery disease History of multiple stents over the years and 4 vessel bypass in 1984. Dementia Gastroesophageal reflux disease Glaucoma Gout History of peptic ulcer disease Hyperlipidemia Hypertension Obstructive sleep apnea Peripheral arterial disease Type 2 diabetes mellitus Hemoglobin A1c was 6.4% on 09/01/2020. Surgical History Surgical History History of appendectomy History of colonoscopy with polypectomy History of coronary angioplasty with insertion of stent Multiple stents placed over the years. History of coronary artery bypass graft 4 vessel bypass on 05/30/[address] Downey at [facility]. History of orthopedic surgery Pinning of left fracture in the 1960s. History of toe surgery Right 1st toe surgery, patient states related to chronic gout. Family History Family History Mother Cancer Father Cancer Social History Social History (Updated 06/13/23 @ 22:49 by Queenie Sin PA-C) Social History: Surrogate medical decision maker: Zehra, spouse. Code status: Do not resuscitate. Smoking status: Never smoker Alcohol intake: never Substance use: never Substance use type: does not use Do You Feel Safe in your Home?: Yes Lack of Transportation: No Lack of Food: Never True Current Housing: I Have Housing Concerned About Future Housing: No Difficulty Paying Gas/Electric Bills: No Difficulty Paying for Meds: No Currently Unemployed: No Education: Don't Know Difficulty w/ Childcare or Family Care: No Living arrangements: nu
[2023-10-13 14:55] VITALS: BP 158/85; PULSE 72; RESP 16; TEMP 36.2; O2SAT 96
--- NOTE | 2023-10-13 15:45 | PM.IMPN ---
Progress Note: A&P Assessment and Plan (1) Stercoral colitis: Code(s): K52.89 - Other specified noninfective gastroenteritis and colitis Status: Acute Assessment and Plan: evidenced on CT general surgery consulted, will following recs AB XR showed colonic and fecal load BC pending clear liquid diet and advance as tolerated BM with enema x2, will continue Miralax Subjective Date/time seen: 10/13/23 15:45 Interval history: Patient is alert to self this morning but cannot tell me more. He is not in any distress,does not endorse any pain even on palpation of the abdomen. AB XR ordered by general surgery, and will advance diet to clears as they are not concerned for need for surgical intervention at this time. BC pending. He did have some BM with enema and will continue with miralax. Review of Systems Review of Systems: All systems reviewed & are unremarkable except as noted in HPI and below (Subjective) Exam Narrative: GENERAL: Well-appearing, well-nourished HEAD: Normocephalic, atraumatic. EYES: PERRLA and EOMI. ENT: Mucous membranes moist. NECK: Supple. CHEST: Lungs clear to auscultation. No respiratory distress. HEART: RRR. Normal peripheral pulses. ABDOMEN: Soft, mildly distended. BS hypoactive. EXTREMITIES: no edema. SKIN: Warm, dry, no rash. NEURO: Alert and oriented at baseline, no speech difficulty Objective Data Vital Signs Vital Signs: Vital Signs - 24 hr 10/12/23 15:46 10/12/23 16:16 10/12/23 16:46 Temperature 97.9 F 97.7 F 98.0 F Pulse Rate 79 83 85 Respiratory Rate 13 15 15 Blood Pressure 140/93 H 159/82 H 149/88 H Pulse Oximetry 99 99 100 10/12/23 17:28 10/12/23 18:00 10/12/23 18:35 Temperature 97.9 F 97.9 F 97.4 F L Pulse Rate 90 81 76 Respiratory Rate 20 16 18 Blood Pressure 144/78 H 142/80 H 153/93 H Pulse Oximetry 98 100 10/12/23 21:20 10/13/23 06:00 10/13/23 14:55 Temperature 97.3 F L 97.4 F L 97.1 F L Pulse Rate 81 84 72 Respiratory Rate 16 16 16 Blood Pressure 153/90 H 115/86 158/85 H Pulse Oximetry 99 99 96 Intake/Output Intake/Output: Intake & Output 10/10/23 10/11/23 10/12/23 10/13/23 23:59 23:59 23:59 23:59 Intake Total 1000 Output Total 300 750 Balance -300 250 Meds/Results Medications: Active Medications Generic Name Dose Route Start Last Admin Trade Name Freq PRN Reason Stop Dose Admin Lactated Ringer's 1,000 mls @ 100 mls/hr 10/12/23 19:55 10/13/23 08:27 Lr - Lactated Ringers Iv IV CONT 100 mls/hr .Q10H TIM Administration Morphine Sulfate 1 mg 10/12/23 19:43 Morphine Sulfate (*Crx) 2 Mg/Ml Inj IV PUSH Q4H PRN Pain Rated 7-10 Ondansetron HCl 4 mg 10/12/23 19:43 Ondansetron Inj 4 Mg/2 Ml Vial IV PUSH Q6H PRN Nausea And Vomiting Pantoprazole Sodium 40 mg 10/13/23 09:00 10/13/23 08:27 Pantoprazole Sodium Iv 40 Mg Vial IV PUSH 40 mg QAM TIM Administration Polyethylene Glycol 17 gm 10/14/23 09:00 Polyethylene Glycol 3350 17 Gm Powd.Pack PO QAM TIM Radiology Results: ITS Impressions Head CT 10/12/23 14:11 IMPRESSION: 1. No acute intracranial abnormality. Cervical Spine CT 10/12/23 14:14 IMPRESSION: 1. No acute abnormality of the cervical spine. Chest X-Ray 10/12/23 14:17 Impression: 1: No acute cardiopulmonary disease. Chest/Abdomen/Pelvis CT 10/12/23 14:23 IMPRESSION: 1. Similar pattern of a large amount of distal colonic stool with mild wall thickening and surrounding inflammatory stranding at the rectum most consistent with mild stercoral colitis. 2. Mild wall thickening of the bladder which could be due to incomplete distention, sequela of chronic outlet obstruction with change of prior prostatectomy or cystitis either acute or chronic. There is small amount of infiltrate stranding surrounding the bladder which could be seen with cystitis and would correlate with urinalysis. 3. No acute cardiopulmonary dis
[2023-10-13 16:37] VITALS: PULSE 76
[2023-10-13] MEDS: METOPROLOL TARTRATE 25 MG TABLET PO (16:37)
[2023-10-13] MEDS: QUEtiapine FUMARATE 25 MG TABLET PO (16:37)
--- NOTE | 2023-10-13 17:03 | WPDGICN ---
Assessment and Plan Assessment and plan (1) Stercoral colitis: Code(s): K52.89 - Other specified noninfective gastroenteritis and colitis Status: Acute Assessment and Plan: he is already responding to miralax and enema repeat KUB improved, will advance diet no need to repeat colonoscopy (2) Acute constipation: Code(s): K59.00 - Constipation, unspecified Status: Acute Assessment and Plan: miralax was resumed high fiber diet (3) Fecal impaction in rectum: Code(s): K56.41 - Fecal impaction Status: Acute (4) Encephalopathy: Code(s): G93.40 - Encephalopathy, unspecified Status: Acute Assessment and Plan: baseline dementia (5) Dementia: Code(s): F03.90 - Unspecified dementia, unspecified severity, without behavioral disturbance, psychotic disturbance, mood disturbance, and anxiety Status: Chronic GI Consult Note Consult date/time: 10/13/23 17:03 Reason for consult: fecal impaction HPI: Franky Lal is a 83 year old male with history of?advanced dementia (A&Ox1, residing at [facility]), anxiety, gout, peptic ulcer disease, hypertension, JOSE, hyperlipidemia, peripheral artery disease, CAD, [id number] diabetes mellitus, GERD, chronic anemia, BPH, CKD who is poor historian and taken from records. Staff was escorting the patient to his room and he appeared over the weekend he was lower down to the floor, noted also low BP and more lethargic than usual.? Reportedly the patient was on MiraLax but that was stopped in May and he has been spending much of his days straining on the toilet.?A CT of his abdomen pelvis was performed in the emergency department and he now showing signs of stercoral colitis again, since given miralax and enema with at least 3 BM since. He is comfortable now. Last colonoscopy by me 01/2022 unremarkable, only mild diverticulosis and hemorrhoids. Review of Systems Constitutional: Constitutional: Denies chills Eyes: Eyes: Denies blurry vision ENT: Reports Normal hearing present Cardiovascular: Cardiovascular: Denies chest pain Respiratory: Respiratory: Denies cough Gastrointestinal: Gastrointestinal: Reports constipation Musculoskeletal: Musculoskeletal: Denies neck pain Integumentary/Breasts: Skin/Breast: Denies rash Neurologic: Reports confusion Psychiatric: Psychiatric: Denies confusion PMFSH Past Medical History Medical History (Updated 10/13/23 @ 17:07 by Mansoor Walker MD) Adenomatous colon polyp Anxiety Benign prostatic hyperplasia Chronic anemia Coronary artery disease History of multiple stents over the years and 4 vessel bypass in 1984. Dementia Fecal impaction in rectum Gastroesophageal reflux disease Glaucoma Gout History of peptic ulcer disease Hyperlipidemia Hypertension Obstructive sleep apnea Peripheral arterial disease Type 2 diabetes mellitus Hemoglobin A1c was 6.4% on 09/01/2020. Surgical History Surgical History History of appendectomy History of colonoscopy with polypectomy History of coronary angioplasty with insertion of stent Multiple stents placed over the years. History of coronary artery bypass graft 4 vessel bypass on 05/30/[address] Downey at [facility]. History of orthopedic surgery Pinning of left fracture in the 1960s. History of toe surgery Right 1st toe surgery, patient states related to chronic gout. Family History Family History Mother Cancer Father Cancer Social History Social History (Updated 06/13/23 @ 22:49 by Queenie Sin PA-C) Social History: Surrogate medical decision maker: Zehra, spouse. Code status: Do not resuscitate. Smoking status: Never smoker Alcohol intake: never Substance use: never Substance use type: does not use Do You Feel Safe in your
[2023-10-13 17:15] LABS: Glucose Point of Care 112 mg/dl (65-105)
[2023-10-13 22:00] VITALS: BP 152/79; PULSE 110; RESP 13; TEMP 36.1; O2SAT 95
[2023-10-13] MEDS: RANOLAZINE 500 MG TAB.ER.12H 1000 MG PO (22:49)
[2023-10-14 00:15] LABS: Glucose Point of Care 120 mg/dl (65-105)
[2023-10-14 06:00] VITALS: BP 160/81; PULSE 99; RESP 14; TEMP 36.1; O2SAT 96
[2023-10-14 06:06] LABS: Glucose Point of Care 105 mg/dl (65-105)
[2023-10-14 06:19] LABS: Basophils Percent Auto 0.4 % (0.2-1.2); Eosinophils Absolute Auto 0.2 K/mm3 (0-0.3); Eosinophils Percent Auto 3.6 % (0-4.4); Hematocrit 38.5 % (42.0-52.0); Hemoglobin 12.4 g/dL (14.0-18.0); Immature Granulocyte Absolute 0.01 K/mm3 (0.00-0.031); Immature Granulocyte Percent A 0.2 % (0-0.5); Lymphocytes Absolute Auto 1.16 K/mm3 (0.9-3.2); Lymphocytes Percent Auto 20.7 % (18.3-44.2); Mean Corpuscular HGB Conc 32.2 g/dl (32-36); Mean Corpuscular Hemoglobin 33.6 pg (26-34); Mean Corpuscular Volume 104.3 fl (80-100); Mean Platelet Volume 9.9 fl (7.4-10.4); Monocytes Absolute Auto 0.5 K/mm3 (0.1-0.6); Monocytes Percent Auto 8.2 % (2.6-8.5); Neutrophils Absolute Auto 3.8 K/mm3 (1.3-6.7); Neutrophils Percent Auto 66.9 % (45.5-73.1); Platelet Count Result 217 k/mm3 (150-375); Red Blood Count 3.69 M/mm3 (4.6-6.20); Red Cell Distribution Width 12.2 % (11.5-14.5); White Blood Count 5.6 K/mm3 (4.5-10.0)
[2023-10-14 06:32] LABS: Anion Gap 5 mmol/L (4-12); Blood Urea Nitrogen 19 mg/dL (9-20); Calcium 9.1 mg/dL (8.4-10.2); Carbon Dioxide 27 mmol/L (22-30); Chloride 106 mmol/L (98-107); Estimated CRCL calculation 48 ml/min; Estimated Glomerular Filt Rate > 60; Glucose 118 mg/dL (65-110); Potassium 4.3 mmol/L (3.4-5.0); Sodium 138 mmol/L (137-145)
[2023-10-14 09:30] VITALS: PULSE 88
[2023-10-14] MEDS: ISOSORBIDE MONONITRATE 60 MG TAB.ER.24H PO (09:30)
[2023-10-14] MEDS: RANOLAZINE 500 MG TAB.ER.12H 1000 MG PO ×2 (09:30→20:21)
[2023-10-14] MEDS: FUROSEMIDE 20 MG TABLET PO (09:30)
[2023-10-14] MEDS: polyethylene glycoL 3350 17 GM POWD.PACK PO ×2 (09:30→17:47)
[2023-10-14] MEDS: CLOPIDOGREL BISULFATE 75 MG TABLET PO (09:30)
[2023-10-14] MEDS: METOPROLOL TARTRATE 25 MG TABLET PO ×2 (09:30→17:47)
[2023-10-14] MEDS: lisinopriL 10 MG TABLET PO (09:30)
[2023-10-14] MEDS: QUEtiapine FUMARATE 25 MG TABLET PO ×2 (09:31→17:47)
[2023-10-14] MEDS: PANTOPRAZOLE SODIUM IV 40 MG VIAL IV PUSH (09:35)
--- NOTE | 2023-10-14 10:24 | WPDGIPROGNO ---
Progress Note: A&P Assessment and Plan (1) Fecal impaction in rectum: Code(s): K56.41 - Fecal impaction Status: Acute Assessment and Plan: continue with bowel regiment GI exam is benign tolerating diet (2) Acute constipation: Code(s): K59.00 - Constipation, unspecified Status: Acute Assessment and Plan: he is back on miralax again (3) Hypotension: Code(s): I95.9 - Hypotension, unspecified Status: Acute Assessment and Plan: resolved (4) Stercoral colitis: Code(s): K52.89 - Other specified noninfective gastroenteritis and colitis Status: Acute Assessment and Plan: bowel regimen no need of colonoscopy (5) Dementia: Code(s): F03.90 - Unspecified dementia, unspecified severity, without behavioral disturbance, psychotic disturbance, mood disturbance, and anxiety Status: Chronic Subjective Date/time seen: 10/14/23 10:24 Interval history: had BM and tolerating diet no events, he is having breakfast Review of Systems Review of Systems: All systems reviewed & are unremarkable except as noted in HPI and below Exam Const: General: cooperative and no acute distress Nutritional Appearance: obese Orientation/consciousness: oriented to person HENMT: Head: normal to inspection Ears: hearing grossly normal bilaterally Eyes: General: appearance normal, both eyes and all related structures Neck: Neck: normal visual inspection and full ROM Resp: Effort & Inspection: normal respiratory effort and able to speak in complete sentences Cardio: Rate: regular rate Rhythm: regular rhythm GI: Inspection: non-distended and obesity GI Palp: Yes Soft to palpation, No Tenderness to palpation present (GI) and No Guarding due to palpation present (GI) Percussion: Yes normal to percussion Auscultation: normal bowel sounds Back/Spine/Pelvis: Cervical Spine: normal cervical lordosis and cervical ROM normal Skin: General skin exam: normal color and no rashes or lesions noted Neuro: General: oriented to person and moves all extremities Extrem: General: normal to inspection, full ROM and no clubbing, cyanosis or edema Psych: Appearance: grossly normal Mental Status: mental status grossly normal Speech and movement: Normal speech and movement present Affect: normal affect Attitude: cooperative Thought process: Normal thought process present Objective Data Vital Signs Vital Signs: Vital Signs - 24 hr 10/13/23 14:55 10/13/23 16:37 10/13/23 22:00 Temperature 97.1 F L 97.0 F L Pulse Rate 72 76 110 H Respiratory Rate 16 13 Blood Pressure 158/85 H 152/79 H Pulse Oximetry 96 95 10/14/23 06:00 10/14/23 09:30 Temperature 96.9 F L Pulse Rate 99 88 Respiratory Rate 14 Blood Pressure 160/81 H Pulse Oximetry 96 Intake/Output Intake/Output: Intake & Output 10/11/23 10/12/23 10/13/23 10/14/23 23:59 23:59 23:59 23:59 Intake Total 2760 500 Output Total 300 750 Balance -300 2010 500 Meds/Results Medications: Active Medications Generic Name Dose Route Start Last Admin Trade Name Freq PRN Reason Stop Dose Admin Clopidogrel Bisulfate 75 mg 10/14/23 09:00 10/14/23 09:30 Clopidogrel Bisulfate 75 Mg Tablet PO 75 mg DAILY TIM Administration Furosemide 20 mg 10/14/23 09:00 10/14/23 09:30 Furosemide 20 Mg Tablet PO 20 mg DAILY TIM Administration Isosorbide Mononitrate 60 mg 10/14/23 09:00 10/14/23 09:30 Isosorbide Mononitrate 60 Mg Tab.Er.24h PO 60 mg DAILY TIM Administration Lisinopril 10 mg 10/14/23 09:00 10/14/23 09:30 Lisinopril 10 Mg Tablet PO 10 mg DAILY TIM Administration Metoprolol Tartrate 25 mg 10/13/23 17:00 10/14/23 09:30 Metoprolol Tartrate 25 Mg Tablet PO 25 mg BID TIM Administration Miscellaneous Information 1 each 10/14/23 00:01 Med Rec Order Clarification XX 11/13/23 00:00 [facility] Morphine Sulfate 1 mg 10/12/23 19:43
--- NOTE | 2023-10-14 11:46 | PM.IMPN ---
Progress Note: A&P Assessment and Plan (1) Stercoral colitis: Code(s): K52.89 - Other specified noninfective gastroenteritis and colitis Status: Acute Assessment and Plan: evidenced on CT GI consulted and following AB XR showed colonic and fecal load BC pending advance to high fiber today continue Miralax Subjective Date/time seen: 10/14/23 11:46 Interval history: Patient is pleasant this morning. He is tolerating a liquid diet and GI to advance his diet to high fiber today. He is not in any distress,does not endorse any pain even on palpation of the abdomen. BC still pending. He did have BM with enema and will continue with Miralax. Review of Systems Review of Systems: All systems reviewed & are unremarkable except as noted in HPI and below (Subjective) ROS unobtainable: Yes unobtainable due to mental status Exam Narrative: GENERAL: Well-appearing, well-nourished HEAD: Normocephalic, atraumatic. EYES: PERRLA and EOMI. ENT: Mucous membranes moist. NECK: Supple. CHEST: Lungs clear to auscultation. No respiratory distress. HEART: RRR. Normal peripheral pulses. ABDOMEN: Soft, mildly distended. BS hypoactive. EXTREMITIES: no edema. SKIN: Warm, dry, no rash. NEURO: Alert and oriented at baseline, no speech difficulty Objective Data Vital Signs Vital Signs: Vital Signs - 24 hr 10/13/23 14:55 10/13/23 16:37 10/13/23 22:00 Temperature 97.1 F L 97.0 F L Pulse Rate 72 76 110 H Respiratory Rate 16 13 Blood Pressure 158/85 H 152/79 H Pulse Oximetry 96 95 Oxygen Delivery 10/14/23 06:00 10/14/23 09:30 10/14/23 08:00 Temperature 96.9 F L Pulse Rate 99 88 Respiratory Rate 14 Blood Pressure 160/81 H Pulse Oximetry 96 Oxygen Delivery Room Air Intake/Output Intake/Output: Intake & Output 10/11/23 10/12/23 10/13/23 10/14/23 23:59 23:59 23:59 23:59 Intake Total 2760 500 Output Total 300 750 Balance -300 2010 500 Meds/Results Medications: Active Medications Generic Name Dose Route Start Last Admin Trade Name Freq PRN Reason Stop Dose Admin Clopidogrel Bisulfate 75 mg 10/14/23 09:00 10/14/23 09:30 Clopidogrel Bisulfate 75 Mg Tablet PO 75 mg DAILY TIM Administration Furosemide 20 mg 10/14/23 09:00 10/14/23 09:30 Furosemide 20 Mg Tablet PO 20 mg DAILY TIM Administration Isosorbide Mononitrate 60 mg 10/14/23 09:00 10/14/23 09:30 Isosorbide Mononitrate 60 Mg Tab.Er.24h PO 60 mg DAILY TIM Administration Lisinopril 10 mg 10/14/23 09:00 10/14/23 09:30 Lisinopril 10 Mg Tablet PO 10 mg DAILY TIM Administration Metoprolol Tartrate 25 mg 10/13/23 17:00 10/14/23 09:30 Metoprolol Tartrate 25 Mg Tablet PO 25 mg BID [facility] Administration Miscellaneous Information 1 each 10/14/23 00:01 Med Rec Order Clarification XX 11/13/23 00:00 [facility] Morphine Sulfate 1 mg 10/12/23 19:43 Morphine Sulfate (*Crx) 2 Mg/Ml Inj IV PUSH Q4H PRN Pain Rated 7-10 Nitroglycerin 0.4 mg 10/13/23 15:47 Nitroglycerin Sl 0.4 Mg Tablet SUBLINGUAL Q5MIN PRN Chest Pain Ondansetron HCl 4 mg 10/12/23 19:43 Ondansetron Inj 4 Mg/2 Ml Vial IV PUSH Q6H PRN Nausea And Vomiting Pantoprazole Sodium 40 mg 10/13/23 09:00 10/14/23 09:35 Pantoprazole Sodium Iv 40 Mg Vial IV PUSH 40 mg QAM [facility] Administration Pantoprazole Sodium 20 mg 10/15/23 09:00 Pantoprazole Sod Sesquihydrate 20 Mg Tab PO QAM TIM Polyethylene Glycol 17 gm 10/14/23 09:00 10/14/23 09:30 Polyethylene Glycol 3350 17 Gm Powd.Pack PO 17 gm BID [facility] Administration Quetiapine Fumarate 25 mg 10/13/23 17:00 10/14/23 09:31 Quetiapine Fumarate 25 Mg Tablet PO 25 mg BID TIM Administration Ranolazine 1,000 mg 10/13/23 21:00 10/14/23 09:30 Ranolazine 500 Mg Tab.Er.12h PO 1,000 mg Q12H TIM Administration Radiology Results: ITS Impressions Head CT
[2023-10-14 12:15] LABS: Glucose Point of Care 104 mg/dl (65-105)
--- NOTE | 2023-10-14 13:10 | PM.PNGS ---
Progress Note: A&P Assessment and Plan (1) Fecal impaction in rectum: Code(s): K56.41 - Fecal impaction Status: Acute Assessment and Plan: Continue MiraLax. No surgical intervention needed at this time. Will sign off. (2) Stercoral colitis: Code(s): K52.89 - Other specified noninfective gastroenteritis and colitis Status: Acute (3) Dementia: Code(s): F03.90 - Unspecified dementia, unspecified severity, without behavioral disturbance, psychotic disturbance, mood disturbance, and anxiety Status: Chronic Subjective Subjective Date/Time Seen: 10/14/23 13:10 Interval history: Having BM's. No abdominal pain. Exam GI: Inspection: non-distended GI Palp: Yes Soft to palpation, No Tenderness to palpation present (GI) and No Guarding due to palpation present (GI) Auscultation: normal bowel sounds Objective Data Vital Signs Vital Signs: Vital Signs - 24 hr 10/13/23 14:55 10/13/23 16:37 10/13/23 22:00 Temperature 36.2 C L 36.1 C L Pulse Rate 72 76 110 H Respiratory Rate 16 13 Blood Pressure 158/85 H 152/79 H Pulse Oximetry 96 95 Oxygen Delivery 10/14/23 06:00 10/14/23 09:30 10/14/23 08:00 Temperature 36.1 C L Pulse Rate 99 88 Respiratory Rate 14 Blood Pressure 160/81 H Pulse Oximetry 96 Oxygen Delivery Room Air Intake/Output Intake/Output: Intake & Output 10/11/23 10/12/23 10/13/23 10/14/23 23:59 23:59 23:59 23:59 Intake Total 2760 500 Output Total 300 750 Balance -300 2010 500 Meds/Results Medications: Active Medications Generic Name Dose Route Start Last Admin Trade Name Freq PRN Reason Stop Dose Admin Clopidogrel Bisulfate 75 mg 10/14/23 09:00 10/14/23 09:30 Clopidogrel Bisulfate 75 Mg Tablet PO 75 mg DAILY TIM Administration Furosemide 20 mg 10/14/23 09:00 10/14/23 09:30 Furosemide 20 Mg Tablet PO 20 mg DAILY TIM Administration Isosorbide Mononitrate 60 mg 10/14/23 09:00 10/14/23 09:30 Isosorbide Mononitrate 60 Mg Tab.Er.24h PO 60 mg DAILY TIM Administration Lisinopril 10 mg 10/14/23 09:00 10/14/23 09:30 Lisinopril 10 Mg Tablet PO 10 mg DAILY [facility] Administration Metoprolol Tartrate 25 mg 10/13/23 17:00 10/14/23 09:30 Metoprolol Tartrate 25 Mg Tablet PO 25 mg BID TIM Administration Miscellaneous Information 1 each 10/14/23 00:01 Med Rec Order Clarification XX 11/13/23 00:00 CLARIFY [facility] Morphine Sulfate 1 mg 10/12/23 19:43 Morphine Sulfate (*Crx) 2 Mg/Ml Inj IV PUSH Q4H PRN Pain Rated 7-10 Nitroglycerin 0.4 mg 10/13/23 15:47 Nitroglycerin Sl 0.4 Mg Tablet SUBLINGUAL Q5MIN PRN Chest Pain Ondansetron HCl 4 mg 10/12/23 19:43 Ondansetron Inj 4 Mg/2 Ml Vial IV PUSH Q6H PRN Nausea And Vomiting Pantoprazole Sodium 40 mg 10/13/23 09:00 10/14/23 09:35 Pantoprazole Sodium Iv 40 Mg Vial IV PUSH 40 mg QAM [facility] Administration Pantoprazole Sodium 20 mg 10/15/23 09:00 Pantoprazole Sod Sesquihydrate 20 Mg Tab PO QAM TIM Polyethylene Glycol 17 gm 10/14/23 09:00 10/14/23 09:30 Polyethylene Glycol 3350 17 Gm Powd.Pack PO 17 gm BID TIM Administration Quetiapine Fumarate 25 mg 10/13/23 17:00 10/14/23 09:31 Quetiapine Fumarate 25 Mg Tablet PO 25 mg BID TIM Administration Ranolazine 1,000 mg 10/13/23 21:00 10/14/23 09:30 Ranolazine 500 Mg Tab.Er.12h PO 1,000 mg Q12H TIM Administration Radiology Results: ITS Impressions Head CT 10/12/23 14:11 IMPRESSION: 1. No acute intracranial abnormality. Cervical Spine CT 10/12/23 14:14 IMPRESSION: 1. No acute abnormality of the cervical spine. Chest X-Ray 10/12/23 14:17 Impression: 1: No acute cardiopulmonary disease. Chest/Abdomen/Pelvis CT 10/12/23 14:23 IMPRESSION: 1. Similar pattern of a large amount of distal colonic stool with mild wall thickening and surrounding inflammatory str
[2023-10-14 14:00] VITALS: BP 114/72; PULSE 73; RESP 18; TEMP 35.6; O2SAT 99
[2023-10-14 17:47] VITALS: PULSE 70
[2023-10-14 21:57] VITALS: BP 126/75; PULSE 73; RESP 18; TEMP 36; O2SAT 96
[2023-10-15] VITALS (9 sets, daily range): BP systolic 97–140; BP diastolic 54–88; PULSE 65–87; RESP 16–18; TEMP 36.1–36.4; O2SAT 93–98
--- NOTE | 2023-10-15 03:51 | WPDGIPROGNO ---
Progress Note: A&P Assessment and Plan (1) Fecal impaction in rectum: Code(s): K56.41 - Fecal impaction Status: Acute Assessment and Plan: continue with bowel regiment- miralax GI exam is benign tolerating diet will sign off (2) Acute constipation: Code(s): K59.00 - Constipation, unspecified Status: Acute Assessment and Plan: he is back on miralax again (3) Hypotension: Code(s): I95.9 - Hypotension, unspecified Status: Acute Assessment and Plan: resolved (4) Stercoral colitis: Code(s): K52.89 - Other specified noninfective gastroenteritis and colitis Status: Acute Assessment and Plan: bowel regimen no need of colonoscopy (5) Dementia: Code(s): F03.90 - Unspecified dementia, unspecified severity, without behavioral disturbance, psychotic disturbance, mood disturbance, and anxiety Status: Chronic Subjective Date/time seen: 10/15/23 03:51 Interval history: no new events Review of Systems Review of Systems: All systems reviewed & are unremarkable except as noted in HPI and below Exam Const: General: cooperative and no acute distress Nutritional Appearance: obese Orientation/consciousness: oriented to person HENMT: Head: normal to inspection Ears: hearing grossly normal bilaterally Eyes: General: appearance normal, both eyes and all related structures Neck: Neck: normal visual inspection and full ROM Resp: Effort & Inspection: normal respiratory effort and able to speak in complete sentences Cardio: Rate: regular rate Rhythm: regular rhythm GI: Inspection: non-distended and obesity GI Palp: Yes Soft to palpation, No Tenderness to palpation present (GI) and No Guarding due to palpation present (GI) Percussion: Yes normal to percussion Auscultation: normal bowel sounds Back/Spine/Pelvis: Cervical Spine: normal cervical lordosis and cervical ROM normal Skin: General skin exam: normal color and no rashes or lesions noted Neuro: General: oriented to person and moves all extremities Extrem: General: normal to inspection, full ROM and no clubbing, cyanosis or edema Psych: Appearance: grossly normal Mental Status: mental status grossly normal Speech and movement: Normal speech and movement present Affect: normal affect Attitude: cooperative Thought process: Normal thought process present Objective Data Vital Signs Vital Signs: Vital Signs - 24 hr 10/14/23 06:00 10/14/23 09:30 10/14/23 08:00 Temperature 96.9 F L Pulse Rate 99 88 Respiratory Rate 14 Blood Pressure 160/81 H Pulse Oximetry 96 Oxygen Delivery Room Air 10/14/23 14:00 10/14/23 17:47 10/14/23 21:57 Temperature 96.1 F L 96.8 F L Pulse Rate 73 70 73 Respiratory Rate 18 18 Blood Pressure 114/72 126/75 Pulse Oximetry 99 96 Oxygen Delivery Intake/Output Intake/Output: Intake & Output 10/12/23 10/13/23 10/14/23 10/15/23 23:59 23:59 23:59 23:59 Intake Total 2760 920 Output Total 300 750 Balance -300 2009 920 Meds/Results Medications: Active Medications Generic Name Dose Route Start Last Admin Trade Name Lukeq PRN Reason Stop Dose Admin Clopidogrel Bisulfate 75 mg 10/14/23 09:00 10/14/23 09:30 Clopidogrel Bisulfate 75 Mg Tablet PO 75 mg DAILY TIM Administration Furosemide 20 mg 10/14/23 09:00 10/14/23 09:30 Furosemide 20 Mg Tablet PO 20 mg DAILY TIM Administration Isosorbide Mononitrate 60 mg 10/14/23 09:00 10/14/23 09:30 Isosorbide Mononitrate 60 Mg Tab.Er.24h PO 60 mg DAILY TIM Administration Lisinopril 10 mg 10/14/23 09:00 10/14/23 09:30 Lisinopril 10 Mg Tablet PO 10 mg DAILY TIM Administration Metoprolol Tartrate 25 mg 10/13/23 17:00 10/14/23 17:47 Metoprolol Tartrate 25 Mg Tablet PO 25 mg BID TIM Administration Miscellaneous Information 1 each 10/14/23 00:01 Med Rec Order Clarification XX 11/13/23 00:00 [facility]
[2023-10-15 06:43] LABS: Basophils Percent Auto 0.4 % (0.2-1.2); Eosinophils Absolute Auto 0.2 K/mm3 (0-0.3); Eosinophils Percent Auto 3.6 % (0-4.4); Hematocrit 34.7 % (42.0-52.0); Hemoglobin 11.5 g/dL (14.0-18.0); Immature Granulocyte Absolute 0.01 K/mm3 (0.00-0.031); Immature Granulocyte Percent A 0.2 % (0-0.5); Lymphocytes Absolute Auto 0.99 K/mm3 (0.9-3.2); Lymphocytes Percent Auto 20.9 % (18.3-44.2); Mean Corpuscular HGB Conc 33.1 g/dl (32-36); Mean Corpuscular Hemoglobin 34.2 pg (26-34); Mean Corpuscular Volume 103.3 fl (80-100); Mean Platelet Volume 10.1 fl (7.4-10.4); Monocytes Absolute Auto 0.5 K/mm3 (0.1-0.6); Monocytes Percent Auto 10.3 % (2.6-8.5); Neutrophils Absolute Auto 3.1 K/mm3 (1.3-6.7); Neutrophils Percent Auto 64.6 % (45.5-73.1); Platelet Count Result 193 k/mm3 (150-375); Red Blood Count 3.36 M/mm3 (4.6-6.20); Red Cell Distribution Width 12.5 % (11.5-14.5); White Blood Count 4.7 K/mm3 (4.5-10.0)
[2023-10-15 06:58] LABS: Anion Gap 3 mmol/L (4-12); Blood Urea Nitrogen 17 mg/dL (9-20); Calcium 8.5 mg/dL (8.4-10.2); Carbon Dioxide 29 mmol/L (22-30); Chloride 105 mmol/L (98-107); Estimated CRCL calculation 41 ml/min; Estimated Glomerular Filt Rate 52; Glucose 106 mg/dL (65-110); Potassium 3.8 mmol/L (3.4-5.0); Sodium 137 mmol/L (137-145)
[2023-10-15] MEDS: ISOSORBIDE MONONITRATE 60 MG TAB.ER.24H PO (08:52)
[2023-10-15] MEDS: FUROSEMIDE 20 MG TABLET PO (08:52)
[2023-10-15] MEDS: lisinopriL 10 MG TABLET PO (08:52)
[2023-10-15] MEDS: METOPROLOL TARTRATE 25 MG TABLET PO (08:55)
[2023-10-15] MEDS: CLOPIDOGREL BISULFATE 75 MG TABLET PO (08:55)
[2023-10-15] MEDS: QUEtiapine FUMARATE 25 MG TABLET PO (08:57)
[2023-10-15] MEDS: RANOLAZINE 500 MG TAB.ER.12H 1000 MG PO (08:58)
[2023-10-15] MEDS: polyethylene glycoL 3350 17 GM POWD.PACK PO ×2 (09:00→17:26)
[2023-10-15 10:11] LABS: Alanine Aminotransferase 15 U/L (6-50); Albumin Level 3.4 g/dL (3.5-5.1); Alkaline Phosphatase 56 U/L (38-126); Aspartate Amino Transferase 36 U/L (17-59)
[2023-10-15] MEDS: SODIUM CHLORIDE 0.9% IV 1,000 ML 999 ML IV CONT (10:25)
[2023-10-15 10:37] LABS: Glucose Point of Care 159 mg/dl (65-105)
[2023-10-15 10:46] LABS: Lactic Acid Reflex 1.4 mmol/L (0.7-2.0)
[2023-10-15 10:58] LABS: Basophils Percent Auto 0.4 % (0.2-1.2); Eosinophils Absolute Auto 0.2 K/mm3 (0-0.3); Eosinophils Percent Auto 3.3 % (0-4.4); Hematocrit 32.8 % (42.0-52.0); Hemoglobin 10.9 g/dL (14.0-18.0); Immature Granulocyte Absolute 0.01 K/mm3 (0.00-0.031); Immature Granulocyte Percent A 0.2 % (0-0.5); Lymphocytes Percent Auto 20.5 % (18.3-44.2); Mean Corpuscular HGB Conc 33.2 g/dl (32-36); Mean Corpuscular Hemoglobin 34.2 pg (26-34); Mean Corpuscular Volume 102.8 fl (80-100); Mean Platelet Volume 9.9 fl (7.4-10.4); Monocytes Absolute Auto 0.4 K/mm3 (0.1-0.6); Monocytes Percent Auto 8.8 % (2.6-8.5); Neutrophils Absolute Auto 3.3 K/mm3 (1.3-6.7); Neutrophils Percent Auto 66.8 % (45.5-73.1); Platelet Count Result 194 k/mm3 (150-375); Red Blood Count 3.19 M/mm3 (4.6-6.20); Red Cell Distribution Width 12.2 % (11.5-14.5); White Blood Count 4.9 K/mm3 (4.5-10.0)
--- NOTE | 2023-10-15 11:06 | ECG_ITS ---
SEE SCANNED COPY FOR CONFIRMED REPORT MTDD
[2023-10-15 11:07] LABS: Alanine Aminotransferase 15 U/L (6-50); Albumin Level 3.3 g/dL (3.5-5.1); Alkaline Phosphatase 54 U/L (38-126); Anion Gap 5 mmol/L (4-12); Aspartate Amino Transferase 22 U/L (17-59); Bilirubin,Total 0.9 mg/dL (0.2-1.3); Blood Urea Nitrogen 17 mg/dL (9-20); Calcium 8.3 mg/dL (8.4-10.2); Carbon Dioxide 25 mmol/L (22-30); Chloride 106 mmol/L (98-107); Estimated CRCL calculation 41 ml/min; Estimated Glomerular Filt Rate 52; Glucose 146 mg/dL (65-110); Potassium 3.6 mmol/L (3.4-5.0); Sodium 136 mmol/L (137-145)
--- NOTE | 2023-10-15 11:21 | PC.NURSE ---
Student nurse feeding patient his breakfast, was somewhat responsive (made verbal comments and eye contact), then suddenly began humming and shutting his eyes without responding when hospitalist TALENT CONSULTANT was coming into room to do routine check, notified TALENT CONSULTANT of patient's status change. Vitals were taken on the patient, TALENT CONSULTANT and primary nurse assessed patient, new orders received. Patient was transported to CT via stretcher with primary RN, student nurse and radiology transcriptionist. Patient was responsive to tactile stimulation while being moved from hospital stretcher to CT bed, patient made incoherent speech while in the CT. CT performed, patient returned to room and RN started an IV for fluid bolus per TALENT CONSULTANT orders. Patient opens eyes to tactile stimulation and speech has improved, although still has periods of incoherency. ----- Laisha MINER. Agree with above note written by SN Laisha Mcclelland. RN called into patient's room at 1010, pt appeared lethargic with garbled speech. occasional right arm movement, spasm-like in movement. Primary RN in room, manual BP taken hypotension noted. Hospitalist TALENT CONSULTANT at bedside NS bolus ordered and CT of head/ABD ordered. Pt transported to CT via stretcher. Upon returning, patient's speech has improved with periods of incoherency.
[2023-10-15 11:37] LABS: Alveolar/Arterial O2 Gradient 35.1 mmHg; Base Excess ABG -1.4 mEq/l (+/-2.0); Fractional Inspired Oxygen 21 %; HCO3 ABG 22.3 mEq/l (22.0-26.0); Oxygen Content ABG 15.2 %vol (16.0-22.0); Oxygen Saturation ABG 95.5 % (95.0-100.0); Oxyhemoglobin 92.8 % THb (90.0-100.0); PCO2 ABG 33.9 mmHg (35.0-45.0); PO2 FiO2 Ratio Arterial Blood 3.52 %; Total Hemoglobin 11.6 g/dL (12.0-18.0)
[2023-10-15 11:39] LABS: Device ROOM AIR; Modified Allen's Test Pass; Site Drawn LEFT RADIAL; pH ABG 7.436 (7.350-7.450)
--- NOTE | 2023-10-15 11:42 | PM.IMPN ---
Progress Note: A&P Assessment and Plan (1) Stercoral colitis: Code(s): K52.89 - Other specified noninfective gastroenteritis and colitis Status: Acute Assessment and Plan: evidenced on CT GI signed off for d/ c AB XR showed colonic and fecal load BC pending high fiber diet continue Miralax, added on stool softener BID (2) Hypotension: Code(s): I95.9 - Hypotension, unspecified Status: Acute Assessment and Plan: BP soft this am along with AMS, 90s/60s normal saline fluid bolus, to have D5 IVF continuous per Dr. Zapata Stat head CT and CT abdomen ordered showing no acute changes. Repeat CBC, CMP unchanged from this am, no acute abnormalities lactic 1.4 ABG showed pCO2 33.9, PO2 74, O2 sats 95.5; patient started on 2L O2 NC EKG unchanged and tele ordered ammonia level <9 holding BP meds and seroquel BC redrawn this am Subjective Date/time seen: 10/15/23 11:42 Interval history: Patient mental status not at baseline on exam this morning. Patient had previously been eating breakfast when he he can be unresponsive. She was not in any visible respiratory acute distress. Vitals were taken and his blood pressure was soft, the normal saline fluid bolus started. He would not open his eyes to sternal rub but would make minor moans. Pulse ox and heart rate were normal. Stat head CT and CT abdomen ordered showing no acute changes. Repeat CBC, CMP, lactic, ABG ordered. CBC CMP and lactic were all normal and unchanged. EKG unchanged and tele ordered. Discussed case with attending, Dr. Zapata, who saw the patient and her view the chart with me. His recommendations were to hold his Seroquel and BP meds given his soft BP this morning. Started on b.i.d. stool softener and continuous IV of D5 after bolus. GI had previously signed off on patient early this morning for discharge. Will continue to monitor for test results and patient condition. Was planning for discharge today but no longer will d/c today given his changes. Nurse spoke with to give her update who has elected to stay home due to the weather. Review of Systems Review of Systems: ROS unobtainable: Yes unobtainable due to mental status Exam Narrative: GENERAL: altered, difficult to arouse, will not open eyes or verbally respond HEAD: Normocephalic, atraumatic. EYES: unable to assess, pupils dilate on opening of lids ENT: Mucous membranes moist. NECK: Supple. CHEST: Lungs clear to auscultation. No respiratory distress. HEART: RRR. Normal peripheral pulses. ABDOMEN: Soft, mildly distended. BS hypoactive. EXTREMITIES: no edema. SKIN: Warm, dry, no rash. NEURO: not at baseline, unable to assess but will [employer] artillery my hands on command. Objective Data Vital Signs Vital Signs: Vital Signs - 24 hr 10/14/23 14:00 10/14/23 17:47 10/14/23 21:57 Temperature 96.1 F L 96.8 F L Pulse Rate 73 70 73 Respiratory Rate 18 18 Blood Pressure 114/72 126/75 Pulse Oximetry 99 96 Oxygen Delivery 10/15/23 06:00 10/15/23 08:55 10/15/23 08:55 Temperature 97.1 F L Pulse Rate 69 87 Respiratory Rate 18 Blood Pressure 140/88 Pulse Oximetry 95 93 Oxygen Delivery Room Air 10/15/23 09:30 Temperature Pulse Rate Respiratory Rate Blood Pressure 98/54 L Pulse Oximetry Oxygen Delivery Intake/Output Intake/Output: Intake & Output 10/12/23 10/13/23 10/14/23 10/15/23 23:59 23:59 23:59 23:59 Intake Total 2760 920 120 Output Total 300 750 Balance -300 2010 920 120 Meds/Results Medications: Active Medications Generic Name Dose Route Start Last Admin Trade Name Freq PRN Reason Stop Dose Admin Clopidogrel Bisulfate 75 mg 10/14/23 09:00 10/15/23 08:55 Clopidogrel Bisulfate 75 Mg Tablet PO 75 mg DAILY TIM Administration Furosemide 20 mg 10/14/23 09:00 10/15/23 08:52 Furosemide 20 Mg Tablet PO 20 mg DAILY TIM Administration Dextrose/Sodium Chloride 1,00
[2023-10-15 11:44] LABS: Glucose Point of Care 133 mg/dl (65-105)
[2023-10-15] MEDS: PANTOPRAZOLE SODIUM IV 40 MG VIAL IV PUSH (12:43)
[2023-10-15] MEDS: DEXTROSE 5%/0.9% SOD CHL 1,000 ML 125 ML IV CONT ×2 (12:43→20:41)
[2023-10-15 12:46] LABS: Ammonia < 9 umol/L (9-30)
[2023-10-15] MEDS: ENOXAPARIN 40 MG/0.4 ML SYRINGE SUB-Q (14:42)
[2023-10-15] MEDS: SENNA/DOCUSATE SODIUM TABLET 2 TAB PO (17:26)
[2023-10-15 18:34] LABS: Glucose Point of Care 171 mg/dl (65-105)
[2023-10-16 01:07] LABS: Glucose Point of Care 118 mg/dl (65-105)
[2023-10-16] MEDS: DEXTROSE 5%/0.9% SOD CHL 1,000 ML 125 ML IV CONT (05:16)
[2023-10-16 06:00] VITALS: BP 101/68; PULSE 69; RESP 18; TEMP 36.2; O2SAT 99
[2023-10-16 06:33] LABS: Basophils Percent Auto 0.4 % (0.2-1.2); Eosinophils Absolute Auto 0.2 K/mm3 (0-0.3); Eosinophils Percent Auto 3.5 % (0-4.4); Hematocrit 35.3 % (42.0-52.0); Hemoglobin 11.5 g/dL (14.0-18.0); Immature Granulocyte Absolute 0.01 K/mm3 (0.00-0.031); Immature Granulocyte Percent A 0.2 % (0-0.5); Lymphocytes Absolute Auto 0.96 K/mm3 (0.9-3.2); Lymphocytes Percent Auto 18.4 % (18.3-44.2); Mean Corpuscular HGB Conc 32.6 g/dl (32-36); Mean Corpuscular Hemoglobin 33.5 pg (26-34); Mean Corpuscular Volume 102.9 fl (80-100); Mean Platelet Volume 10.3 fl (7.4-10.4); Monocytes Absolute Auto 0.5 K/mm3 (0.1-0.6); Monocytes Percent Auto 8.8 % (2.6-8.5); Neutrophils Absolute Auto 3.6 K/mm3 (1.3-6.7); Neutrophils Percent Auto 68.7 % (45.5-73.1); Platelet Count Result 197 k/mm3 (150-375); Red Blood Count 3.43 M/mm3 (4.6-6.20); Red Cell Distribution Width 12.2 % (11.5-14.5); White Blood Count 5.2 K/mm3 (4.5-10.0)
[2023-10-16 06:39] LABS: Lactic Acid Reflex 0.9 mmol/L (0.7-2.0)
[2023-10-16 06:44] LABS: Alanine Aminotransferase 14 U/L (6-50); Albumin Level 3.4 g/dL (3.5-5.1); Alkaline Phosphatase 57 U/L (38-126); Anion Gap 5 mmol/L (4-12); Aspartate Amino Transferase 23 U/L (17-59); Bilirubin,Total 0.9 mg/dL (0.2-1.3); Blood Urea Nitrogen 13 mg/dL (9-20); Calcium 8.1 mg/dL (8.4-10.2); Carbon Dioxide 23 mmol/L (22-30); Chloride 109 mmol/L (98-107); Estimated CRCL calculation 44 ml/min; Estimated Glomerular Filt Rate 58; Glucose 125 mg/dL (65-110); Potassium 3.4 mmol/L (3.4-5.0); Sodium 137 mmol/L (137-145)
[2023-10-16 08:16] VITALS: PULSE 72
[2023-10-16] MEDS: RANOLAZINE 500 MG TAB.ER.12H 1000 MG PO (08:19)
[2023-10-16] MEDS: CLOPIDOGREL BISULFATE 75 MG TABLET PO (08:19)
[2023-10-16] MEDS: ISOSORBIDE MONONITRATE 60 MG TAB.ER.24H PO (08:19)
[2023-10-16] MEDS: SENNA/DOCUSATE SODIUM TABLET 2 TAB PO (08:19)
[2023-10-16] MEDS: polyethylene glycoL 3350 17 GM POWD.PACK PO (08:20)
[2023-10-16] MEDS: PANTOPRAZOLE SODIUM IV 40 MG VIAL IV PUSH (08:27)
[2023-10-16] MEDS: ENOXAPARIN 40 MG/0.4 ML SYRINGE SUB-Q (08:28)
--- NOTE | 2023-10-16 11:48 | PM.IMPN ---
Progress Note: A&P Assessment and Plan (1) Stercoral colitis: Code(s): K52.89 - Other specified noninfective gastroenteritis and colitis Status: Acute Assessment and Plan: evidenced on CT GI signed off for d/ c AB XR showed colonic and fecal load BC pending high fiber diet continue Miralax, added on stool softener BID (2) Hypotension: Code(s): I95.9 - Hypotension, unspecified Status: Acute Assessment and Plan: BP soft this am along with AMS, 90s/60s normal saline fluid bolus, to have D5 IVF continuous per Dr. Zapata Stat head CT and CT abdomen ordered showing no acute changes. Repeat CBC, CMP unchanged from this am, no acute abnormalities lactic 1.4 ABG showed pCO2 33.9, PO2 74, O2 sats 95.5; patient started on 2L O2 NC EKG unchanged and tele ordered ammonia level <9 holding BP meds and seroquel BC redrawn this am Subjective Date/time seen: 10/16/23 11:48 Interval history: Patient mental status not at baseline on exam this morning. Patient had previously been eating breakfast when he he can be unresponsive. She was not in any visible respiratory acute distress. Vitals were taken and his blood pressure was soft, the normal saline fluid bolus started. He would not open his eyes to sternal rub but would make minor moans. Pulse ox and heart rate were normal. Stat head CT and CT abdomen ordered showing no acute changes. Repeat CBC, CMP, lactic, ABG ordered. CBC CMP and lactic were all normal and unchanged. EKG unchanged and tele ordered. Discussed case with attending, Dr. Zapata, who saw the patient and her view the chart with me. His recommendations were to hold his Seroquel and BP meds given his soft BP this morning. Started on b.i.d. stool softener and continuous IV of D5 after bolus. GI had previously signed off on patient early this morning for discharge. Will continue to monitor for test results and patient condition. Was planning for discharge today but no longer will d/c today given his changes. Nurse spoke with to give her update who has elected to stay home due to the weather. Review of Systems Review of Systems: ROS unobtainable: Yes unobtainable due to mental status Exam Narrative: GENERAL: altered, difficult to arouse, will not open eyes or verbally respond HEAD: Normocephalic, atraumatic. EYES: unable to assess, pupils dilate on opening of lids ENT: Mucous membranes moist. NECK: Supple. CHEST: Lungs clear to auscultation. No respiratory distress. HEART: RRR. Normal peripheral pulses. ABDOMEN: Soft, mildly distended. BS hypoactive. EXTREMITIES: no edema. SKIN: Warm, dry, no rash. NEURO: not at baseline, unable to assess but will cloth colorer my hands on command. Objective Data Vital Signs Vital Signs: Vital Signs - 24 hr 10/15/23 12:00 10/15/23 14:00 10/15/23 16:00 Temperature 97.0 F L 97.6 F Pulse Rate 75 76 72 Respiratory Rate 17 16 Blood Pressure 97/68 L 123/71 Pulse Oximetry 98 10/15/23 12:03 10/15/23 22:00 10/15/23 20:00 Temperature 97.4 F L Pulse Rate 72 71 65 Respiratory Rate 18 Blood Pressure 104/71 Pulse Oximetry 98 10/16/23 06:00 Temperature 97.1 F L Pulse Rate 69 Respiratory Rate 18 Blood Pressure 101/68 Pulse Oximetry 99 Intake/Output Intake/Output: Intake & Output 10/13/23 10/14/23 10/15/23 10/16/23 23:59 23:59 23:59 23:59 Intake Total 2760 920 2235.8 1400 Output Total 750 Balance 2010 920 2235.8 1400 Meds/Results Medications: Active Medications Generic Name Dose Route Start Last Admin Trade Name Freq PRN Reason Stop Dose Admin Clopidogrel Bisulfate 75 mg 10/14/23 09:00 10/16/23 08:19 Clopidogrel Bisulfate 75 Mg Tablet PO 75 mg DAILY TIM Administration Enoxaparin Sodium 40 mg 10/15/23 12:55 10/16/23 08:28 Enoxaparin 40 Mg/0.4 Ml Syringe SUB-Q 40 mg DAILY TIM Administration Furosemide 20 mg 10/14/23 09:00 10/15/23 08:52 Furosemi
[2023-10-16 11:50] LABS: Glucose Point of Care 141 mg/dl (65-105)
[2023-10-16 12:00] VITALS: PULSE 109
[2023-10-16 13:53] VITALS: BP 110/71; PULSE 100; RESP 20; TEMP 36.6; O2SAT 97
--- NOTE | 2023-10-16 14:20 | PM.DS ---
DS: Admitting Diagnosis Discharge Date 10/16/23 Admitting Diagnosis Constipation DS: Discharge Diagnosis Discharge Diagnosis (1) Fecal impaction in rectum: Code(s): K56.41 - Fecal impaction Status: Acute (2) Hypotension: Code(s): I95.9 - Hypotension, unspecified Status: Acute (3) Type 2 diabetes mellitus: Code(s): E11.9 - Type 2 diabetes mellitus without complications Status: Chronic (4) Noninfective gastroenteritis and colitis: Code(s): K52.9 - Noninfective gastroenteritis and colitis, unspecified Status: Acute DS: Summary Hospital Course Reason for hospitalization: 83-year-old male with a history of advanced dementia (A&Ox1, residing at [facility] [place]), anxiety, gout, peptic ulcer disease, hypertension, JOSE, hyperlipidemia, peripheral artery disease, CAD, [id number] diabetes mellitus, GERD, chronic anemia, BPH, CKD presents with weakness from his permanent residence.? Hospital Course: 10/15/23? 11:42 Interval history: Patient mental status not at baseline on exam this morning. Patient had previously been eating breakfast when he he can be unresponsive.? She was not in any visible respiratory acute distress.? Vitals were taken and his blood pressure was soft, the normal saline fluid bolus started.? He would not open his eyes to sternal rub but would make minor moans.? Pulse ox and heart rate were normal.? Stat head CT and CT abdomen ordered showing no acute changes.? Repeat CBC, CMP, lactic, ABG ordered.? CBC CMP and lactic were all normal and unchanged.? EKG unchanged and tele ordered. Discussed case with attending, Dr. Zapata, who saw the patient and her view the chart with me.? His recommendations were to hold his Seroquel and BP meds given his soft BP this morning.? Started on b.i.d. stool softener and continuous IV of D5 after bolus. GI had previously signed off on patient early this morning for discharge.? Will continue to monitor for test results and patient condition.? Was planning for discharge today but no longer will d/c today given his changes.? Nurse spoke with to give her update who has elected to stay home due to the weather. 10/16/2023: Pt seen this am , he denies any c/o, awake, able to give hx. Labs were reviewed. Will plan for discharge today. Status at Discharge Functional status at discharge: wheelchair bound Overall status at discharge: patient is back to baseline Time Spent with Patient Time attestation: Total time spent providing and/or coordinating discharge services: Time spent: Less than 30 minutes Exam Narrative: ? Patient seen and examined at bedside ? Collaborated with patient's nurse at the bedside in detail and addressed all concerns ? Labs, electrolytes, radiology, investigations and test results reviewed ? Spoke with patient/family at the bedside and answered all the questions that they had General: A well-developed, nontoxic-appearing gentlemen, sitting up in bed. Spouse is by the bedside HEENT: PERRL, EOMI. Oral mucosa moist. Neck: Supple. No midline cervical tenderness. Respiratory: Respirations are non- labored and lungs are clear to auscultation bilaterally. Cardiovascular: Regular rate and rhythm with S1-S2. Gastrointestinal: Abdomen is soft, non-tender, and non-distended with positive bowel sounds. Skin: Warm and dry. No rash or lesions on limited exam. Extremities: No cyanosis, clubbing, or edema. Radial and pedal pulses intact. Neurological: Alert and oriented. Cranial nerves 2-12 are grossly intact. No gross focal deficits to casual conversation. Psychiatric: Pleasant and cooperative with normal mood and affect. Judgment and insight intact. DS: Data Data Completed and Pending Labs on day of discharge: Labs from last 24 hours 10/16/23 10/16/23 10/16/23 11:44 05:47 01:03 WBC 5.2 RBC 3.43 L Hgb 11.5 L Hct 35.3 L MCV 102.9 H MCH 33.5 MCHC 32.6 RDW 12.2
[2023-10-16 17:09] LABS: SARS-CoV-2 RNA PCR Negative (Negative)
== END 2023-10-16 16:51 | DRG 392 ==
LOC: ANHED 15:36 → ANH3MEDSUR 18:56
PROVIDERS: Hospitalist; Nurse Practitioner; Preventive Medicine Aerospace Medicine; Admitting Provider General Practice; Emergency Provider Student in an Organized Health Care Education/Training Program; PCP Internal Medicine; Visit Provider Nurse Practitioner
DX: K52.89 Other specified noninfective gastroenteritis and colitis (principal); E87.20 Acidosis, unspecified; I25.10 Atherosclerotic heart disease of native coronary artery without angina pectoris; I10 Essential (primary) hypertension; I95.9 Hypotension, unspecified; E11.22 Type 2 diabetes mellitus with diabetic chronic kidney disease; E11.51 Type 2 diabetes mellitus with diabetic peripheral angiopathy without gangrene; E78.5 Hyperlipidemia, unspecified; K59.00 Constipation, unspecified; K21.9 Gastro-esophageal reflux disease without esophagitis; N18.30 Chronic kidney disease, stage 3 unspecified; N40.0 Benign prostatic hyperplasia without lower urinary tract symptoms; H40.9 Unspecified glaucoma; G47.33 Obstructive sleep apnea (adult) (pediatric); F03.90 Unspecified dementia, unspecified severity, without behavioral disturbance, psychotic disturbance, mood disturbance, and anxiety; F41.9 Anxiety disorder, unspecified; Z20.822 Contact with and (suspected) exposure to COVID-19; Z11.52 Encounter for screening for COVID-19; Z86.010 Personal history of colon polyps; Z79.02 Long term (current) use of antithrombotics/antiplatelets; Z95.5 Presence of coronary angioplasty implant and graft; Z95.1 Presence of aortocoronary bypass graft; Z87.11 Personal history of peptic ulcer disease; Z99.3 Dependence on wheelchair
CPT/HCPCS: 36415; 36600; 70450; 71046; 71260; 72125; 74018; 74176; 74177; 80048; 80053; 81001; 82140; 82248; 82550; 82805; 82948; 83605; 83690; 83735; 84484; 85025; 85610; 85730; 86140; 87040; 87077; 87181; 87635; 87637; 93005; 99285; A9270; C9113; J1650; J7030; J7042; J7120; Q9967

== ENCOUNTER 2024-02-05 10:52 | Observation (INO) | payer MEDICARE, OTHER, SELFPAY ==
[2024-02-05] VITALS (37 sets, daily range): BP systolic 82–140; BP diastolic 47–80; PULSE 62–80; RESP 10–23; TEMP 36.3–36.8; O2SAT 93–100; BMI 31.4
--- NOTE | ~2024-02-05 | XR_ITS ---
EXAMINATION: XR chest 2V DATE: 02/05/2024 12:04 INDICATION: Syncope TECHNIQUE: frontal and lateral views of the chest were obtained. COMPARISON: Chest radiograph dated 10/12/23 FINDINGS: Retrocardiac opacities at the left lower lung zone which could represent atelectasis or pneumonia. No other airspace opacities, pulmonary edema, pleural effusion or pneumothorax. Borderline heart size a ccounting for AP technique and a left paracardial fat pad. Median sternotomy wires and mediastinal farrar rgical clips are seen, likely from prior coronary artery bypass grafting. Severe right glenohumeral osteoarthritis. IMPRESSION: 1. Retrocardiac opacities in the left lower lung zone which could represent atelectasis or pneumonia. Reviewed, dictated and finalized at location A. IMPRESSION: 1. Retrocardiac opacities in the left lower lung zone which could represent ate lectasis or pneumonia.
--- NOTE | ~2024-02-05 | CT_ITS ---
EXAMINATION: CT brain wo con DATE: 02/05/2024 11:56 INDICATION: Acute mental status TECHNIQUE: Computed tomography (CT) of the head was performed without intravenous contrast. Sagittal and coronal reconstructions were performed. The mA was adjusted according to patient size. Iterative reconstruction technique was employed. The dose-length product was 1210.67 mGy-cm. COMPARISON: head CT dated 10/15/23 FINDINGS: No acute intracranial hemorrhage, acute infarction or abnormal extra axial fluid collection. There is mild scattered white matter hypoattenuation consistent with chronic small vessel ischemic disease. S ymmetric prominence of the sulci consistent with moderate age-appropriate diffuse cerebral volume los s. Ventricles are normal and symmetric. No mass/mass effect. Changes of bilateral intraocular lens re placement. The orbits, paranasal sinuses and mastoid air cells are normal. Intracranial calcified cer ebral atherosclerosis is noted. IMPRESSION: 1. No acute intracranial process. 2. Age-related changes including moderate diffuse volume loss and mild scattered white matter hypoatt enuation consistent with chronic small vessel ischemic disease. Reviewed, dictated and finalized at location A. IMPRESSION: 1. No acute intracranial process. 2. Age-related changes including moderate diffuse volume loss and mild scattere d white matter hypoattenuation consistent with chronic small vessel ischemic di sease.
--- NOTE | 2024-02-05 11:07 | ECG_ITS ---
Test Date: 2024-02-05 11:24:04 Measurements Intervals [place] Rate: 68 P: 56 IA: 179 QRS: -25 QRSD: 93 T: 74 QT: 411 QTc: 439 Interpretive Statements SINUS RHYTHM BORDERLINE LEFT AXIS DEVIATION [QRS AXIS < -20] NONSPECIFIC ST & T-WAVE ABNORMALITY ABNORMAL ECG No previous ECG available for comparison Electronically Signed On 02-05-2024 13:49:28 CDT by Sharan Cunningham M.D.
[2024-02-05 11:46] LABS: Basophils Percent Auto 0.3 % (0.2-1.2); Eosinophils Absolute Auto 0.2 K/mm3 (0-0.3); Eosinophils Percent Auto 2.8 % (0-4.4); Hematocrit 34.3 % (42.0-52.0); Hemoglobin 11.4 g/dL (14.0-18.0); Immature Granulocyte Absolute 0.02 K/mm3 (0.00-0.031); Immature Granulocyte Percent A 0.3 % (0-0.5); Lymphocytes Absolute Auto 1.08 K/mm3 (0.9-3.2); Lymphocytes Percent Auto 17.5 % (18.3-44.2); Mean Corpuscular HGB Conc 33.2 g/dl (32-36); Mean Corpuscular Hemoglobin 34.5 pg (26-34); Mean Corpuscular Volume 103.9 fl (80-100); Mean Platelet Volume 10.2 fl (7.4-10.4); Monocytes Absolute Auto 0.5 K/mm3 (0.1-0.6); Monocytes Percent Auto 8.1 % (2.6-8.5); Neutrophils Absolute Auto 4.4 K/mm3 (1.3-6.7); Platelet Count Result 230 k/mm3 (150-375); Red Cell Distribution Width 13.1 % (11.5-14.5); White Blood Count 6.2 K/mm3 (4.5-10.0)
[2024-02-05 11:57] LABS: Prothrombin Time 14.1 Seconds (11.1-14.7)
[2024-02-05 11:58] LABS: Partial Thromboplastin Time 27.1 Seconds (22.3-36.8)
[2024-02-05 12:04] LABS: Lactic Acid Reflex 1.6 mmol/L (0.7-2.0)
[2024-02-05 12:05] LABS: Alanine Aminotransferase 12 U/L (6-50); Albumin Level 3.7 g/dL (3.5-5.1); Alkaline Phosphatase 59 U/L (38-126); Anion Gap 9 mmol/L (4-12); Aspartate Amino Transferase 20 U/L (17-59); Bilirubin,Total 0.6 mg/dL (0.2-1.3); Blood Urea Nitrogen 26 mg/dL (9-20); Calcium 8.5 mg/dL (8.4-10.2); Carbon Dioxide 26 mmol/L (22-30); Chloride 104 mmol/L (98-107); Estimated Glomerular Filt Rate 58; Glucose 135 mg/dL (65-110); Potassium 4.3 mmol/L (3.4-5.0); Sodium 139 mmol/L (137-145)
[2024-02-05] MEDS: SODIUM CHLORIDE 0.9% IV 1,000 ML 999 ML IV CONT (12:50)
[2024-02-05 13:04] LABS: Add Urine Microscopic? YES; Appearance Urine Cloudy (Clear); Bacteria Urine 4+ /hpf; Bilirubin Urine 1+ (Negative); Blood Urine Negative (Negative); Color Urine Dark Yellow (Yellow); Glucose Urine UA Negative (Negative); Ketones Urine Trace mg/dL (Negative); Leukocyte Esterase Ur 3+ LEU/UL (Negative); Need Manual Microscopic Reviewed; Nitrate Urine Negative (Negative); Protein Urine Trace mg/dL (Negative); RBC Urine 21-50 /hpf (0-2); Specific Grav Ur 1.019 (1.001-1.035); Squamous Epithelial Cell Urine None Seen /hpf (Few); WBC Urine >100 /hpf (0-3); pH Urine 5.5 (5.0-9.0)
[2024-02-05 13:40] LABS: Magnesium 1.7 mg/dL (1.6-2.3)
[2024-02-05 13:58] LABS: Procalcitonin 0.1 ng/mL; Troponin I 0.046 ng/mL (0.000-0.034)
--- NOTE | 2024-02-05 14:35 | ED.GENADULT ---
HPI - General Adult General Chief complaint: Syncope Stated complaint: syncopal Time Seen by Provider: 02/05/24 12:15 History of Present Illness HPI narrative: patient is a 83-year-old gentleman who presents emergency department with chief complaint of syncope. Patient is a resident of [place] and had an episode where he became unresponsive. when EMS arrived they found the patient be very drowsy and had a blood pressure that was in the 60s the patient has responded with IV fluid and his pressure is currently 112/69. Patient denies chest pain but does report that he has an extensive cardiac history also has history of Lewy body dementia Related Data Home Medications Medication Instructions Recorded Confirmed cholecalciferol (vitamin D3) 125 25 mcg PO DAILY 08/31/20 10/12/23 mcg (5,000 unit) tablet (Vitamin D3) clopidogrel 75 mg tablet (Plavix) 75 mg PO DAILY 08/31/20 10/12/23 isosorbide mononitrate 60 mg 60 mg PO DAILY 08/31/20 10/12/23 tablet,extended release 24 hr lisinopril 10 mg tablet 10 mg PO DAILY 08/31/20 10/12/23 metformin 500 mg tablet 500 mg PO BID 08/31/20 10/12/23 metoprolol tartrate 25 mg tablet 25 mg PO BID 08/31/20 10/12/23 nitroglycerin 0.4 mg sublingual 0.4 mg sublingual USEASDIRECTD PRN 08/31/20 10/12/23 tablet Chest Pain polyethylene glycol 3350 17 17 g PO DAILY 08/31/20 10/12/23 gram/dose oral powder (Miralax) quetiapine 25 mg tablet (Seroquel) 25 mg PO BID 09/23/20 10/12/23 acetaminophen 500 mg tablet 500 mg PO Q6H PRN Pain (Scale 02/26/21 10/12/23 Score 1-3) atorvastatin 40 mg tablet 40 mg PO HS 02/26/21 10/12/23 magnesium oxide 400 mg PO DAILY 02/26/21 10/12/23 pantoprazole 20 mg tablet,delayed 20 mg PO QAM 02/26/21 10/12/23 release elderberry fruit 460 mg-elderberry 1 cap PO DAILY 02/06/22 10/12/23 flower 115 mg capsule chlorpheniramine-dextromethorphan 1 tablet PO BID PRN sinus drainage 12/24/23 04/23/24 4 mg-30 mg tablet (Coricidin HBP Cough and Cold) polyvinyl alcohol 1.4 % eye drops 1 drp ophthalmic (eye) QID 06/13/23 10/12/23 (Artificial Tears (polyvinyl alcohol)) ranolazine 1,000 mg 1,000 mg PO Q12H 06/13/23 10/12/23 tablet,extended release,12 hr vit C-vit P-brnvwc-lmzjmbth capsule 1 cap PO DAILY 06/13/23 10/12/23 Allergies Allergy/AdvReac Type Severity Reaction Status Date / Time ketorolac [From Toradol] Allergy Swelling Verified 02/11/22 10:36 Review of Systems Review of Systems: A 10 system review of systems was completed on the patient and is negative except for what is stated in the HPI. Nursing and ancillary documentation was reviewed. [facility] Past Medical History Medical History Adenomatous colon polyp Anxiety Benign prostatic hyperplasia Chronic anemia Coronary artery disease History of multiple stents over the years and 4 vessel bypass in 1984. Dementia Fecal impaction in rectum Gastroesophageal reflux disease Glaucoma Gout History of peptic ulcer disease Hyperlipidemia Hypertension Obstructive sleep apnea Peripheral arterial disease Type 2 diabetes mellitus Hemoglobin A1c was 6.4% on 09/01/2020. Surgical History Surgical History History of appendectomy History of colonoscopy with polypectomy History of coronary angioplasty with insertion of stent Multiple stents placed over the years. History of coronary artery bypass graft 4 vessel bypass on 05/30/[address] Downey at [facility]. History of orthopedic surgery Pinning of left fracture in the 1960s. History of toe surgery Right 1st toe surgery, patient states related to chronic gout. Family History Family History Mother Cancer Father Cancer Social History Social History Social History: Surrogate medical decision linnea
--- NOTE | 2024-02-05 15:12 | PM.IMHP ---
H&P: HPI History of Present Illness Date/Time: 02/05/24 15:12 Chief Complaint: Syncope, Hypotension Narrative: 83 y/o M presents here with syncope and hypotension with PMH of Lewy body dementia, CAD, chronic anemia, BPH, HLD, HTN, JOSE, PAD, and type 2 diabetes. The patient presents here with syncope and hypotension from [place] via EMS. Initial BP upon EMS arrival was 68/palp and patient drowsy but arousable. Improved with 100 mL bolus. Arrived to ED 82/47. The patient's reports she was with him all evening yesterday and he appeared as his usual. No complaints voiced to her. She states he has good days and bad days where he will be very awake one day and more somnolent the next. No further history available given patient's dementia. Family unaware of any new or concerning symptoms, sees him daily. Initial VS at presentation: 97.4? F, HR 71, RR 12, 82/47, and 97% on RA. ED workup showed: No leukocytosis, hemoglobin 11.4, normal coags, creatinine 1.2 and GFR 58, initial troponin 0.046, procalcitonin 0.1, lactic acid 1.6, and UA consistent with UTI. Head CT showed no acute intracranial process and age-related changes including moderate diffuse volume loss and mild scattered white matter hypoattenuation. CXR showed retrocardiac opacities in left lower lung zone which could represent atelectasis versus pneumonia. Review of Systems Review of Systems: ROS unobtainable: Yes unobtainable due to mental status [facility] Past Medical History Medical History Adenomatous colon polyp Anxiety Benign prostatic hyperplasia Chronic anemia Coronary artery disease History of multiple stents over the years and 4 vessel bypass in 1984. Dementia Fecal impaction in rectum Gastroesophageal reflux disease Glaucoma Gout History of peptic ulcer disease Hyperlipidemia Hypertension Obstructive sleep apnea Peripheral arterial disease Type 2 diabetes mellitus Hemoglobin A1c was 6.4% on 09/01/2020. Surgical History Surgical History History of appendectomy History of colonoscopy with polypectomy History of coronary angioplasty with insertion of stent Multiple stents placed over the years. History of coronary artery bypass graft 4 vessel bypass on 05/30/[address] Downey at [facility]. History of orthopedic surgery Pinning of left fracture in the 1960s. History of toe surgery Right 1st toe surgery, patient states related to chronic gout. Family History Family History Mother Cancer Father Cancer Social History Social History Social History: Surrogate medical decision maker: Zehra, spouse. Code status: Do not resuscitate. Smoking status: Never smoker Alcohol intake: former Substance use: never Substance use type: does not use Do You Feel Safe in your Home?: Yes Lack of Transportation: No Lack of Food: Never True Current Housing: I Have Housing Concerned About Future Housing: No Difficulty Paying Gas/Electric Bills: No Difficulty Paying for Meds: No Currently Unemployed: No Education: High School Diploma/GED Difficulty w/ Childcare or Family Care: No Living arrangements: prison Additional living arrangements comments: Memory care at [place]. He has 5 children. Additional occupation/education comments: He was in the [employer] and retired from [employer]. Spiritual care concerns: No Meds Home Medications and Allergies Home Medications Medication Instructions Recorded Confirmed Type cholecalciferol (vitamin D3) 125 25 mcg PO DAILY 08/31/20 02/05/24 History mcg (5,000 unit) tablet (Vitamin D3) clopidogrel 75 mg tablet (Plavix) 75 mg PO DAILY 08/31/20 02/05/24 History isosorbide mononitrate 60 mg 60 mg PO DAILY 08/31/20 0
[2024-02-05] MEDS: SODIUM CHLORIDE 0.9% IV 1,000 ML 100 ML IV CONT (16:40)
[2024-02-05] MEDS: AZITHROMYCIN 500 MG/NS 250 ML 500 MG/250 ML BAG 250 MG IVPB (16:40)
[2024-02-05] MEDS: ASPIRIN 81 MG CHEWABLE TABLET 324 MG PO (16:40)
--- NOTE | 2024-02-05 17:04 | ADMGEN ---
This patient, Franky Lal, was admitted to IMU Room 213-01. Patient/family oriented to hospital policies and general routines including ID bracelet, bed and alarms, visiting hours, pain management, procedures, bathroom and other care routines, personal items, smoking policy, room service/diet, and visiting hours. Information on how to activate the Rapid Response Team has been discussed. Patient/Family are encouraged to report perceived risks to care and to ask questions if they do not understand what they are told or what they should do.
[2024-02-05 18:46] LABS: MRSA (PCR) NOT DETECTED (NOT DETECTE)
[2024-02-05 21:37] LABS: Troponin I 0.027 ng/mL (0.000-0.034)
[2024-02-05] MEDS: ATORVASTATIN 40 MG TABLET PO (22:01)
[2024-02-05] MEDS: ARTIFICIAL TEARS OPHTH SOLN 15 ML BOTTLE 1 DROP EACH EYE (22:01)
[2024-02-05] MEDS: QUEtiapine FUMARATE 25 MG TABLET PO (22:02)
[2024-02-05] MEDS: METOPROLOL TARTRATE 25 MG TABLET PO (22:02)
[2024-02-05] MEDS: RANOLAZINE 500 MG TAB.ER.12H PO (22:02)
[2024-02-06] VITALS (20 sets, daily range): BP systolic 112–154; BP diastolic 68–95; PULSE 61–86; RESP 12–18; TEMP 36.2–36.7; O2SAT 97–100
[2024-02-06] MEDS: SODIUM CHLORIDE 0.9% IV 1,000 ML 100 ML IV CONT ×2 (04:06→14:56)
[2024-02-06 04:23] LABS: Basophils Percent Auto 0.6 % (0.2-1.2); Eosinophils Absolute Auto 0.2 K/mm3 (0-0.3); Eosinophils Percent Auto 3.9 % (0-4.4); Hematocrit 31.9 % (42.0-52.0); Hemoglobin 10.7 g/dL (14.0-18.0); Immature Granulocyte Absolute 0.01 K/mm3 (0.00-0.031); Immature Granulocyte Percent A 0.2 % (0-0.5); Lymphocytes Absolute Auto 1.42 K/mm3 (0.9-3.2); Lymphocytes Percent Auto 26.6 % (18.3-44.2); Mean Corpuscular HGB Conc 33.5 g/dl (32-36); Mean Corpuscular Hemoglobin 34.2 pg (26-34); Mean Corpuscular Volume 101.9 fl (80-100); Mean Platelet Volume 9.9 fl (7.4-10.4); Monocytes Absolute Auto 0.4 K/mm3 (0.1-0.6); Monocytes Percent Auto 6.9 % (2.6-8.5); Neutrophils Absolute Auto 3.3 K/mm3 (1.3-6.7); Neutrophils Percent Auto 61.8 % (45.5-73.1); Platelet Count Result 199 k/mm3 (150-375); Red Blood Count 3.13 M/mm3 (4.6-6.20); Red Cell Distribution Width 13.2 % (11.5-14.5); White Blood Count 5.3 K/mm3 (4.5-10.0)
[2024-02-06 04:52] LABS: Alanine Aminotransferase 12 U/L (6-50); Albumin Level 3.2 g/dL (3.5-5.1); Alkaline Phosphatase 60 U/L (38-126); Anion Gap 5 mmol/L (4-12); Aspartate Amino Transferase 21 U/L (17-59); Bilirubin,Total 0.6 mg/dL (0.2-1.3); Blood Urea Nitrogen 23 mg/dL (9-20); Calcium 8.3 mg/dL (8.4-10.2); Carbon Dioxide 24 mmol/L (22-30); Chloride 109 mmol/L (98-107); Estimated CRCL calculation 56 ml/min; Estimated Glomerular Filt Rate > 60; Glucose 103 mg/dL (65-110); Potassium 3.8 mmol/L (3.4-5.0); Sodium 138 mmol/L (137-145)
[2024-02-06] MEDS: ASPIRIN 81 MG CHEWABLE TABLET PO (09:25)
[2024-02-06] MEDS: CHOLECALCIFEROL 5,000 UNITS TABLET 5000 UNITS PO (09:27)
[2024-02-06] MEDS: polyethylene glycoL 3350 17 GM POWD.PACK PO (09:27)
[2024-02-06] MEDS: ISOSORBIDE MONONITRATE 60 MG TAB.ER.24H PO (09:28)
[2024-02-06] MEDS: CLOPIDOGREL BISULFATE 75 MG TABLET PO (09:28)
[2024-02-06] MEDS: QUEtiapine FUMARATE 25 MG TABLET PO ×2 (09:28→20:10)
[2024-02-06] MEDS: lisinopriL 10 MG TABLET PO (09:28)
[2024-02-06] MEDS: MAGNESIUM OXIDE 400 MG TABLET PO (09:28)
[2024-02-06] MEDS: oxyBUTYnin CHLORIDE XL 5 MG TAB.ER.24 PO (09:28)
[2024-02-06] MEDS: METOPROLOL TARTRATE 25 MG TABLET PO ×2 (09:28→20:10)
[2024-02-06] MEDS: RANOLAZINE 500 MG TAB.ER.12H PO ×2 (09:28→20:10)
[2024-02-06] MEDS: PANTOPRAZOLE SOD SESQUIHYDRATE 20 MG TAB PO (09:28)
[2024-02-06] MEDS: MULTIVITAMINS /C LUTEIN (CENTRUM SILVER) TABLET *BKC 1 TAB PO (09:29)
[2024-02-06] MEDS: FUROSEMIDE INJ 40 MG/4 ML VIAL 20 MG IV PUSH (09:29)
--- NOTE | 2024-02-06 09:39 | PC.NURSE ---
Patient currently refusing crushed medications in applesauce. Will wait until spouse is at bedside to attempt again.
--- NOTE | 2024-02-06 11:24 | PC.NURSE ---
Spouse updated on patient transfer to room 232 and [facility] updated on diagnosis and plan of care.
--- NOTE | 2024-02-06 15:34 | PC.NURSE ---
Updated patient's spouse, Zehra, on plan of care and discharge process.
--- NOTE | 2024-02-06 16:08 | PM.IMPN ---
Progress Note: A&P Assessment and Plan (1) Hypotension: Code(s): I95.9 - Hypotension, unspecified Status: Acute Assessment and Plan: Patient presents due to syncope and found to have HoTN. Lactic acid 1.6 and procalcitonin 0.1. WBC normal. Not tachycardic. Patient given IV bolus by EMS, 2nd bolus given in ED. HoTN could be related dehydration and/or medications and/or infection from UTI, PNA CXR showing LLL airspace opacity. UA concerning for UTI. BCx and UCx ordered. Started on ceftriaxone and azithromycin on 02/04 Follow up on culture results. Check TSH (2) Syncope: Qualifiers: Syncope type: unspecified Qualified Code(s): R55 - Syncope and collapse Code(s): R55 - Syncope and collapse Status: Acute Assessment and Plan: Patient with syncope felt related to HoTN CT brain showing no acute findings but does show chronic findings. EKG showing normal sinus rhythm, borderline left axis deviation, nonspecific ST and T-wave abnormality. Initial troponin elevated at 0.046 but repeat was normal. Marginally elevated Trop related to HoTN Monitor on tele. Macrocytic anemia - check B12/folate (3) Elevated troponin: Code(s): R79.89 - Other specified abnormal findings of blood chemistry Status: Acute Assessment and Plan: As above. Recent Echo 05/2023: Good systolic function, estimated EF 70%, grade 2 diastolic dysfunction. Continue telemetry monitoring (4) Pneumonia: Code(s): J18.9 - Pneumonia, unspecified organism Status: Acute Assessment and Plan: As above (5) Acute UTI: Code(s): N39.0 - Urinary tract infection, site not specified Status: Acute Assessment and Plan: UA is consistent with UTI. UCx collected. Old culture results noted Rocephin started. UCx pending. Follow up on UCx results. (6) Type 2 diabetes mellitus: Code(s): E11.9 - Type 2 diabetes mellitus without complications Status: Chronic Assessment and Plan: A1C 6.4 on 06/13/2023. The patient's blood glucose was reviewed on 02/05 Glucose remains well controlled. Continue AccuCheks covering with sliding scale. Hypoglycemia protocol available as needed. Continue to follow (7) Hypertension: Qualifiers: Hypertension type: primary hypertension Qualified Code(s): I10 - Essential (primary) hypertension Code(s): I10 - Essential (primary) hypertension Status: Chronic Assessment and Plan: Patient's blood pressure was reviewed on 02/05 Blood pressure remains better controlled. Will continue to monitor Plan DVT Prophylaxis: SCDs Code Status: DNR Subjective Date/time seen: 02/06/24 16:08 Interval history: 83yo male with dementia, CAD, HTN, JOSE and DM here for syncope and HoTN. Patient is awake, alert but unable to provide history. Review of Systems Review of Systems: ROS unobtainable: Yes unobtainable due to mental status Exam Narrative: AF 97.6 112/72 66 12 98% ra Gen - NARD Chest - lungs clear anteriorly, nml RR CV - RRR S1/S2. Tele showing no significant dysrhythmias Abd - Soft, NT/ND, Positive BS Ext - No pedal edema Neuro - Alert but confused Psych - Nml mood and affect Skin - Warm and dry Objective Data Vital Signs Vital Signs: Vital Signs - 24 hr 02/05/24 16:56 02/05/24 16:38 02/05/24 18:00 Temperature 98.3 F Pulse Rate 62 79 Respiratory Rate 16 Blood Pressure 132/74 Pulse Oximetry 97 98 Oxygen Delivery Room Air Fraction of Inspired Oxygen 02/05/24 20:07 02/05/24 22:02 02/05/24 20:00 Temperature 97.7 F Pulse Rate 73 69 69 Respiratory Rate 16 16 Blood Pressure 140/73 Pulse Oximetry 100 100 Oxygen Delivery Room Air Fraction of Inspired Oxygen 02/05/24 20:00 02/05/24 22:00 02/06/24 00:00 Temperature Pulse Rate 74 73 83 Respiratory Rate Blood Pressure Pulse Oximetry Oxygen Delivery
[2024-02-06] MEDS: ARTIFICIAL TEARS OPHTH SOLN 15 ML BOTTLE 1 DROP EACH EYE ×2 (18:44→20:10)
[2024-02-06] MEDS: AZITHROMYCIN 500 MG/NS 250 ML 500 MG/250 ML BAG 250 MG IVPB (18:44)
[2024-02-06] MEDS: ATORVASTATIN 40 MG TABLET PO (20:09)
[2024-02-07] VITALS (12 sets, daily range): BP systolic 100–148; BP diastolic 74–114; PULSE 59–78; RESP 16–20; TEMP 36.2–36.4; O2SAT 93–100
[2024-02-07 04:34] LABS: Basophils Percent Auto 0.4 % (0.2-1.2); Eosinophils Absolute Auto 0.2 K/mm3 (0-0.3); Eosinophils Percent Auto 3.1 % (0-4.4); Hematocrit 32.9 % (42.0-52.0); Hemoglobin 10.7 g/dL (14.0-18.0); Immature Granulocyte Absolute 0.01 K/mm3 (0.00-0.031); Immature Granulocyte Percent A 0.1 % (0-0.5); Lymphocytes Absolute Auto 1.48 K/mm3 (0.9-3.2); Lymphocytes Percent Auto 21.5 % (18.3-44.2); Mean Corpuscular HGB Conc 32.5 g/dl (32-36); Mean Corpuscular Hemoglobin 33.3 pg (26-34); Mean Corpuscular Volume 102.5 fl (80-100); Mean Platelet Volume 10.1 fl (7.4-10.4); Monocytes Absolute Auto 0.5 K/mm3 (0.1-0.6); Monocytes Percent Auto 6.7 % (2.6-8.5); Neutrophils Absolute Auto 4.7 K/mm3 (1.3-6.7); Neutrophils Percent Auto 68.2 % (45.5-73.1); Platelet Count Result 223 k/mm3 (150-375); Red Blood Count 3.21 M/mm3 (4.6-6.20); Red Cell Distribution Width 12.8 % (11.5-14.5); White Blood Count 6.9 K/mm3 (4.5-10.0)
[2024-02-07 05:07] LABS: Albumin Level 3.4 g/dL (3.5-5.1); Anion Gap 9 mmol/L (4-12); Blood Urea Nitrogen 19 mg/dL (9-20); Calcium 8.5 mg/dL (8.4-10.2); Carbon Dioxide 23 mmol/L (22-30); Chloride 106 mmol/L (98-107); Estimated CRCL calculation 61 ml/min; Estimated Glomerular Filt Rate > 60; Glucose 110 mg/dL (65-110); Magnesium 1.7 mg/dL (1.6-2.3); Phosphorus 3.2 mg/dL (2.5-4.5); Potassium 4.2 mmol/L (3.4-5.0); Sodium 138 mmol/L (137-145)
[2024-02-07] MEDS: ASPIRIN 81 MG CHEWABLE TABLET PO (09:06)
[2024-02-07] MEDS: ARTIFICIAL TEARS OPHTH SOLN 15 ML BOTTLE 1 DROP EACH EYE ×3 (09:06→16:51)
[2024-02-07] MEDS: RANOLAZINE 500 MG TAB.ER.12H PO (09:07)
[2024-02-07] MEDS: ISOSORBIDE MONONITRATE 60 MG TAB.ER.24H PO (09:07)
[2024-02-07] MEDS: METOPROLOL TARTRATE 25 MG TABLET PO (09:07)
[2024-02-07] MEDS: MAGNESIUM OXIDE 400 MG TABLET PO (09:08)
[2024-02-07] MEDS: MULTIVITAMINS /C LUTEIN (CENTRUM SILVER) TABLET *BKC 1 TAB PO (09:08)
[2024-02-07] MEDS: CLOPIDOGREL BISULFATE 75 MG TABLET PO (09:08)
[2024-02-07] MEDS: PANTOPRAZOLE SOD SESQUIHYDRATE 20 MG TAB PO (09:08)
[2024-02-07] MEDS: CHOLECALCIFEROL 5,000 UNITS TABLET 5000 UNITS PO (09:08)
[2024-02-07] MEDS: oxyBUTYnin CHLORIDE XL 5 MG TAB.ER.24 PO (09:09)
[2024-02-07] MEDS: lisinopriL 10 MG TABLET PO (09:10)
[2024-02-07] MEDS: polyethylene glycoL 3350 17 GM POWD.PACK PO (09:10)
[2024-02-07] MEDS: QUEtiapine FUMARATE 25 MG TABLET PO (09:10)
--- NOTE | 2024-02-07 10:32 | PCOTNOTE ---
Attempted to see pt. for occupational therapy evaluation. Pt. agreeable to participate, but with repeated attempts does not display initiation of movemetn to transfer or follow directions. Pt. perseverating on telemetry unit and IV. [employer] present.
[2024-02-07] MEDS: AZITHROMYCIN 250 MG TABLET PO (11:44)
--- NOTE | 2024-02-07 13:14 | PCPTNOTE ---
On 02/07/24, the student, [Maria D Garcia], provided care and completed [facility] documentation on this patient. I have reviewed the student's documentation and agree with the findings.
--- NOTE | 2024-02-07 15:39 | PM.DS ---
DS: Admitting Diagnosis Discharge Date 02/07/24 Admitting Diagnosis Syncope DS: Discharge Diagnosis Discharge Diagnosis (1) Hypotension: Code(s): I95.9 - Hypotension, unspecified Status: Acute (2) Syncope: Qualifiers: Syncope type: unspecified Qualified Code(s): R55 - Syncope and collapse Code(s): R55 - Syncope and collapse Status: Acute (3) Elevated troponin: Code(s): R79.89 - Other specified abnormal findings of blood chemistry Status: Acute (4) Pneumonia: Code(s): J18.9 - Pneumonia, unspecified organism Status: Acute (5) Acute UTI: Code(s): N39.0 - Urinary tract infection, site not specified Status: Acute (6) Type 2 diabetes mellitus: Code(s): E11.9 - Type 2 diabetes mellitus without complications Status: Chronic (7) Hypertension: Qualifiers: Hypertension type: primary hypertension Qualified Code(s): I10 - Essential (primary) hypertension Code(s): I10 - Essential (primary) hypertension Status: Chronic DS: Summary Hospital Course Reason for hospitalization: 83yo male with dementia, CAD, HTN, JOSE and DM here for syncope and HoTN. Please see H&P for details. Hospital Course: Patient presents due to syncope and found to have HoTN. Syncope felt related to HoTN. CT brain showing no acute findings but does show chronic findings. EKG showing normal sinus rhythm, borderline left axis deviation, nonspecific ST and T-wave abnormality. Initial troponin elevated at 0.046 but repeat was normal. Marginally elevated Trop related to HoTN. Recent Echo 05/2023: Good systolic function, estimated EF 70%, grade 2 diastolic dysfunction. Lactic acid 1.6 and procalcitonin 0.1. WBC normal. Not tachycardic. Patient given IV bolus by EMS, 2nd bolus given in ED. HoTN could be related dehydration and/or medications and/or infection from infection. CXR showing LLL airspace opacity. UA concerning for UTI. BCx and UCx ordered. Started on ceftriaxone and azithromycin on 02/04. TSH normal. UCx was negative. UTI ruled out. BCx remained negative. He remained on room air. We held his Lasix. he worked with PT/OT and he was felt appropriate for discharge. He did well and was able to be discharged back to his facility on 02/07/24. Status at Discharge Cognitive/behavioral status at discharge: stable Time Spent with Patient Time attestation: Total time spent providing and/or coordinating discharge services: 32 minutes Time spent: Greater than 30 minutes Exam Narrative: AF 97.4 148/114 64 16 93% ra Gen - NARD Chest - lungs clear anteriorly, nml RR CV - RRR S1/S2. Tele showing no significant dysrhythmias Abd - Soft, NT/ND, Positive BS Ext - No pedal edema Neuro - Alert but confused Psych - Nml mood and affect Skin - Warm and dry DS: Data Data Completed and Pending Labs on day of discharge: Labs from last 24 hours 02/07/24 04:26 WBC 6.9 RBC 3.21 L Hgb 10.7 L Hct 32.9 L MCV 102.5 H MCH 33.3 MCHC 32.5 RDW 12.8 Plt Count 223 MPV 10.1 Immature Gran % (Auto) 0.1 Neut % (Auto) 68.2 Lymph % (Auto) 21.5 [place] % (Auto) 6.7 Eos % (Auto) 3.1 Baso % (Auto) 0.4 Lymph # (Auto) 1.48 [place] # (Auto) 0.5 Eos # (Auto) 0.2 Baso # (Auto) 0.0 Abs Immat Gran (auto) 0.01 Absolute Neuts (auto) 4.7 Absolute Nucleated RBC 0.000 Nucleated RBC % 0.0 Sodium 138 Potassium 4.2 Chloride 106 Carbon Dioxide 23 Anion Gap 9 BUN 19 Creatinine 1.00 Estim Creat Clear Calc 61 Estimated GFR > 60 Glucose 110 Calcium 8.5 Phosphorus 3.2 Magnesium 1.7 Albumin 3.4 L Vitamin B12 Pending Folate Pending TSH (Reflex) 2.770 Preliminary micro results at discharge 02/05/24 17:34 Blood Culture - Preliminary Blood Discharge Plan Discharge Attending physician on discharge: Domingo Murphy Discharging Clinician: Domingo Murphy Anticipated Discharge Date/Time:
--- NOTE | 2024-02-07 17:29 | PC.NURSE ---
1719- d/c home- [place] Stalin [place] [facility] [place] Discharged to memory care via w/c to private vehicle driven by
[2024-02-07 20:45] LABS: Folic Acid 5.8 ng/mL (2.76->20)
--- NOTE | 2024-02-09 13:38 | PC.NURSE ---
B12 is WNL at 378.0 Folate is WNL at 5.8 Dr. Murphy is aware.
== END 2024-02-07 17:19 ==
LOC: ANHED 12:43 → ANHIMU 15:36
PROVIDERS: Emergency Medicine; Student in an Organized Health Care Education/Training Program; Admitting Provider Internal Medicine; Emergency Provider Emergency Medicine; PCP Internal Medicine; Visit Provider Internal Medicine
DX: I95.9 Hypotension, unspecified (principal); J18.9 Pneumonia, unspecified organism; N39.0 Urinary tract infection, site not specified; A41.9 Sepsis, unspecified organism; R65.21 Severe sepsis with septic shock; R79.89 Other specified abnormal findings of blood chemistry; F41.9 Anxiety disorder, unspecified; I25.10 Atherosclerotic heart disease of native coronary artery without angina pectoris; K21.9 Gastro-esophageal reflux disease without esophagitis; E78.5 Hyperlipidemia, unspecified; I10 Essential (primary) hypertension; G47.33 Obstructive sleep apnea (adult) (pediatric); E11.9 Type 2 diabetes mellitus without complications; Z95.1 Presence of aortocoronary bypass graft; G31.83 Neurocognitive disorder with Lewy bodies; F02.80 Dementia in other diseases classified elsewhere, unspecified severity, without behavioral disturbance, psychotic disturbance, mood disturbance, and anxiety; D64.9 Anemia, unspecified; H40.9 Unspecified glaucoma
CPT/HCPCS: 36415; 70450; 71046; 80053; 80069; 81001; 82607; 82746; 83605; 83735; 84145; 84443; 84484; 85025; 85610; 85730; 87040; 87086; 87641; 93005; 96361; 96365; 96366; 96367; 96375; 97161; 99285; A9270; G0378; J0456; J0696; J1940; J7030

== ENCOUNTER 2024-03-29 10:42 | Observation (INO) | payer MEDICARE, OTHER, SELFPAY ==
[2024-03-29] VITALS (12 sets, daily range): BP systolic 74–129; BP diastolic 56–98; PULSE 68–82; RESP 12–20; TEMP 36.4–36.5; O2SAT 97–100; BMI 33.7
--- NOTE | ~2024-03-29 | XR_ITS ---
EXAMINATION: XR chest 2V DATE: 03/29/2024 11:53 INDICATION: Cough and weakness. TECHNIQUE: Frontal and lateral views of the chest were obtained. COMPARISON: Chest 2 views 02/05/2024, CT abdomen and pelvis 10/15/2023 FINDINGS: The lung volumes are small. There is mild atelectasis in the lower lung zones. No pleural e ffusion or pneumothorax. The heart size is normal. Median sternotomy wires and mediastinal surgical c lips are seen, likely from prior coronary artery bypass grafting. There are prominent pericardial fat pads. IMPRESSION: 1. Small lung volumes with mild atelectasis in the lower lung zones. Reviewed, dictated and finalized at location A.
--- NOTE | 2024-03-29 10:53 | PC.NURSE ---
pt has a small skin tear to right elbow upon arrival.
--- NOTE | 2024-03-29 11:13 | ECG_ITS ---
Test Date: 2024-03-29 11:22:42 Measurements Intervals Reserve Rate: 72 P: -26 TN: 171 QRS: -25 QRSD: 85 T: 18 QT: 401 QTc: 439 Interpretive Statements SINUS RHYTHM INFERIOR MYOCARDIAL INFARCTION , PROBABLY OLD [40+ ms Q WAVE AND/OR ST/T ABNORMALITY IN II/aVF] ABNORMAL ECG Compared to ECG 02/05/2024 11:24:04 Myocardial infarct finding now present T-wave abnormality no longer present Electronically Signed On 03-30-2024 07:46:45 CDT by Sharan Cunningham M.D.
[2024-03-29 11:28] LABS: Basophils Percent Auto 0.4 % (0.2-1.2); Eosinophils Absolute Auto 0.2 K/mm3 (0-0.3); Eosinophils Percent Auto 2.3 % (0-4.4); Hematocrit 37.3 % (42.0-52.0); Hemoglobin 12.3 g/dL (14.0-18.0); Immature Granulocyte Absolute 0.02 K/mm3 (0.00-0.031); Immature Granulocyte Percent A 0.3 % (0-0.5); Lymphocytes Absolute Auto 1.13 K/mm3 (0.9-3.2); Lymphocytes Percent Auto 16.2 % (18.3-44.2); Mean Corpuscular Hemoglobin 33.9 pg (26-34); Mean Corpuscular Volume 102.8 fl (80-100); Mean Platelet Volume 9.8 fl (7.4-10.4); Monocytes Absolute Auto 0.4 K/mm3 (0.1-0.6); Monocytes Percent Auto 6.2 % (2.6-8.5); Neutrophils Absolute Auto 5.2 K/mm3 (1.3-6.7); Neutrophils Percent Auto 74.6 % (45.5-73.1); Platelet Count Result 304 k/mm3 (150-375); Red Blood Count 3.63 M/mm3 (4.6-6.20); Red Cell Distribution Width 13.1 % (11.5-14.5)
[2024-03-29] MEDS: SODIUM CHLORIDE 0.9% IV 1,000 ML 999 ML IV CONT (11:37)
[2024-03-29 11:40] LABS: Alanine Aminotransferase 15 U/L (6-50); Albumin Level 4.2 g/dL (3.5-5.1); Alkaline Phosphatase 70 U/L (38-126); Anion Gap 12 mmol/L (4-12); Aspartate Amino Transferase 29 U/L (17-59); Bilirubin,Total 0.8 mg/dL (0.2-1.3); Blood Urea Nitrogen 25 mg/dL (9-20); Calcium 8.9 mg/dL (8.4-10.2); Carbon Dioxide 25 mmol/L (22-30); Chloride 103 mmol/L (98-107); Estimated CRCL calculation 33 ml/min; Estimated Glomerular Filt Rate 38; Glucose 141 mg/dL (65-110); Potassium 3.8 mmol/L (3.4-5.0); Sodium 140 mmol/L (137-145)
--- NOTE | 2024-03-29 13:14 | ED.GENADULT ---
HPI - General Adult General Chief complaint: Shortness of Breath/Dyspnea Stated complaint: r/o asp pneumonia Time Seen by Provider: 03/29/24 11:13 History of Present Illness HPI narrative: Patient is an 83-year-old male who presents ER with concerns for possible aspiration. He was eating breakfast when began to cough and then slid out of his chair. He is oriented x1 and cannot provide any history. No cough or hypoxia here. Did initially have low blood pressure. Related Data Home Medications Medication Instructions Recorded Confirmed cholecalciferol (vitamin D3) 125 25 mcg PO DAILY 08/31/20 02/05/24 mcg (5,000 unit) tablet (Vitamin D3) clopidogrel 75 mg tablet (Plavix) 75 mg PO DAILY 08/31/20 02/05/24 isosorbide mononitrate 60 mg 60 mg PO DAILY 08/31/20 02/05/24 tablet,extended release 24 hr lisinopril 10 mg tablet 10 mg PO DAILY 08/31/20 02/05/24 metformin 500 mg tablet 500 mg PO BID 08/31/20 02/05/24 metoprolol tartrate 25 mg tablet 25 mg PO BID 08/31/20 02/05/24 nitroglycerin 0.4 mg sublingual 0.4 mg sublingual USEASDIRECTD PRN 08/31/20 02/05/24 tablet Chest Pain polyethylene glycol 3350 17 17 g PO DAILY 08/31/20 02/05/24 gram/dose oral powder (Miralax) quetiapine 25 mg tablet (Seroquel) 25 mg PO BID 09/23/20 02/05/24 acetaminophen 500 mg tablet 500 mg PO Q6H PRN Pain (Scale 02/26/21 02/05/24 Score 1-3) atorvastatin 40 mg tablet 40 mg PO HS 02/26/21 02/05/24 magnesium oxide 400 mg PO DAILY 02/26/21 02/05/24 pantoprazole 20 mg tablet,delayed 20 mg PO QAM 02/26/21 02/05/24 release elderberry fruit 460 mg-elderberry 1 cap PO DAILY 02/06/22 02/05/24 flower 115 mg capsule polyvinyl alcohol 1.4 % eye drops 1 drp ophthalmic (eye) QID 06/13/23 02/05/24 (Artificial Tears (polyvinyl alcohol)) ranolazine 1,000 mg 1,000 mg PO Q12H 06/13/23 02/05/24 tablet,extended release,12 hr vit C-vit R-eptwnq-hiooahsx capsule 1 cap PO DAILY 06/13/23 02/05/24 oxybutynin chloride 5 mg 5 mg PO DAILY 02/05/24 02/05/24 tablet,extended release 24 hr Allergies Allergy/AdvReac Type Severity Reaction Status Date / Time ketorolac [From Toradol] Allergy Swelling Verified 03/29/24 10:55 Review of Systems Review of Systems: ROS unobtainable: Yes unobtainable due to mental status [facility] Past Medical History Medical History Adenomatous colon polyp Anxiety Benign prostatic hyperplasia Chronic anemia Coronary artery disease History of multiple stents over the years and 4 vessel bypass in 1984. Dementia Fecal impaction in rectum Gastroesophageal reflux disease Glaucoma Gout History of peptic ulcer disease Hyperlipidemia Hypertension Obstructive sleep apnea Peripheral arterial disease Type 2 diabetes mellitus Hemoglobin A1c was 6.4% on 09/01/2020. Surgical History Surgical History History of appendectomy History of colonoscopy with polypectomy History of coronary angioplasty with insertion of stent Multiple stents placed over the years. History of coronary artery bypass graft 4 vessel bypass on 05/30/[address] Downey at [facility]. History of orthopedic surgery Pinning of left fracture in the 1960s. History of toe surgery Right 1st toe surgery, patient states related to chronic gout. Family History Family History Mother Cancer Father Cancer Social History Social History Social History: Surrogate medical decision maker: Zehra, spouse. Code status: Do not resuscitate. Smoking status: Never smoker Alcohol intake: former Substance use: never Substance use type: does not use Do You Feel Safe in your Home?: Yes Lack of Transportation: No Lack of Food: Never True Current Housing: I Have Housing Concerned About Future Housing: No Difficul
--- NOTE | 2024-03-29 14:35 | PM.IMHP ---
H&P: HPI History of Present Illness Date/Time: 03/29/24 15:30 Chief Complaint: Coughing at breakfast. Narrative: This is an 83-year-old male with dementia, coronary artery disease, type 2 diabetes mellitus, hypertension, chronic anemia, and other comorbidities who presented to the emergency department via EMS from [facility] for evaluation after he began coughing at breakfast. He cannot provide an accurate history and a majority the following is obtained via a review for his EMR and information provided by his , Tabatha. She sees the patient daily and reports that he was eating and drinking well up until about 3 weeks ago when almost suddenly he stopped feeding himself. For a period of time he would eat pretty good when she feed him but he has started to pocket food in his cheeks and he is not drinking much. Staff at his facility report that he began coughing while at breakfast and then he slid out of his chair. They were apparently concerned for possible aspiration and send him to the ED for evaluation. There were no reports of aspiration, hypoxia, vomiting, or recent illnesses. At the time my evaluation the patient is alert. He will occasionally nod or shake his head appropriately when asked questions. He shook his head no when asked if he was having pain or difficulty swallowing. In the ED: Blood pressure was 79/56 on arrival. The remainder of his vital signs have been stable. He is afebrile. Labs are significant for WBC count of 7.0, hemoglobin 12.3, BUN 25, creatinine 1.70, glucose 141. Chest x-ray showed small lung volumes with mild atelectasis in lower lung zones. He received a L of normal saline with improvement his blood pressures. He is being admitted with an acute kidney injury for further treatment and evaluation. Review of Systems Review of Systems: Unable to be obtained accurately given his dementia. [facility] Past Medical History Medical History Adenomatous colon polyp Anxiety Benign prostatic hyperplasia Chronic anemia Coronary artery disease History of multiple stents over the years and 4 vessel bypass in 1984. Dementia Fecal impaction in rectum Gastroesophageal reflux disease Glaucoma Gout History of peptic ulcer disease Hyperlipidemia Hypertension Obstructive sleep apnea Peripheral arterial disease Type 2 diabetes mellitus Hemoglobin A1c was 6.4% on 09/01/2020. Surgical History Surgical History History of appendectomy History of colonoscopy with polypectomy History of coronary angioplasty with insertion of stent Multiple stents placed over the years. History of coronary artery bypass graft 4 vessel bypass on 05/30/[address] Downey at [facility]. History of orthopedic surgery Pinning of left fracture in the 1960s. History of toe surgery Right 1st toe surgery, patient states related to chronic gout. Family History Family History Mother Cancer Father Cancer Social History Social History (Updated 03/29/24 @ 19:51 by Queenie Sin PA-C) Social History: Surrogate medical decision maker: Zehra Lal, spouse. Code status: Do not resuscitate. Smoking status: Never smoker Alcohol intake: never Substance use: never Substance use type: does not use Do You Feel Safe in your Home?: Yes Lack of Transportation: No Lack of Food: Never True Current Housing: I Have Housing Concerned About Future Housing: No Difficulty Paying Gas/Electric Bills: No Difficulty Paying for Meds: No Currently Unemployed: No Education: Decline to Answer Difficulty w/ Childcare or Family Care: No Living arrangements: snf Additional living arrangements comments: Memory care at [place]. He has 5 children. Additional occupation/education comments: He was in the [employer] a
--- NOTE | 2024-03-29 16:27 | PC.NURSE ---
report was called at 1426 to the pt facility. this RN gave report to Nova MAZA about this pt
[2024-03-29 16:53] LABS: Glucose Point of Care 102 mg/dl (65-105)
[2024-03-29] MEDS: LACTATED RINGERS 1,000 ML 100 ML IV CONT ×2 (18:12→21:22)
[2024-03-29] MEDS: QUEtiapine FUMARATE 25 MG TABLET PO (21:09)
[2024-03-29] MEDS: ATORVASTATIN 40 MG TABLET PO (21:09)
[2024-03-29] MEDS: METOPROLOL TARTRATE 25 MG TABLET PO (21:09)
[2024-03-29] MEDS: RANOLAZINE 500 MG TAB.ER.12H 1000 MG PO (21:10)
[2024-03-29 21:11] LABS: Glucose Point of Care 110 mg/dl (65-105)
[2024-03-29] MEDS: ARTIFICIAL TEARS OPHTH SOLN 15 ML BOTTLE 1 DROP EACH EYE (21:21)
[2024-03-30] VITALS (7 sets, daily range): BP systolic 118–134; BP diastolic 74–87; PULSE 58–71; RESP 12–20; TEMP 36.1–36.6; O2SAT 96–100
[2024-03-30] MEDS: LACTATED RINGERS 1,000 ML 100 ML IV CONT ×2 (06:24→14:55)
[2024-03-30 06:56] LABS: Anion Gap 8 mmol/L (4-12); Blood Urea Nitrogen 21 mg/dL (9-20); Calcium 8.6 mg/dL (8.4-10.2); Carbon Dioxide 21 mmol/L (22-30); Chloride 107 mmol/L (98-107); Estimated CRCL calculation 53 ml/min; Estimated Glomerular Filt Rate > 60; Glucose 100 mg/dL (65-110); Magnesium 1.4 mg/dL (1.6-2.3); Potassium 4.5 mmol/L (3.4-5.0); Sodium 136 mmol/L (137-145)
[2024-03-30 07:51] LABS: Glucose Point of Care 100 mg/dl (65-105)
[2024-03-30] MEDS: ARTIFICIAL TEARS OPHTH SOLN 15 ML BOTTLE 1 DROP EACH EYE ×3 (08:33→20:31)
[2024-03-30] MEDS: METOPROLOL TARTRATE 25 MG TABLET PO ×2 (08:34→20:29)
[2024-03-30] MEDS: QUEtiapine FUMARATE 25 MG TABLET PO ×2 (08:36→17:15)
[2024-03-30] MEDS: CHOLECALCIFEROL 1,000 UNITS TABLET 1000 UNITS PO (08:36)
[2024-03-30] MEDS: ENOXAPARIN 40 MG/0.4 ML SYRINGE SUB-Q (08:36)
[2024-03-30] MEDS: CLOPIDOGREL BISULFATE 75 MG TABLET PO (08:36)
[2024-03-30] MEDS: MAGNESIUM OXIDE 400 MG TABLET PO (08:36)
[2024-03-30] MEDS: polyethylene glycoL 3350 17 GM POWD.PACK PO (08:36)
[2024-03-30 10:31] LABS: Basophils Percent Auto 0.6 % (0.2-1.2); Eosinophils Absolute Auto 0.2 K/mm3 (0-0.3); Eosinophils Percent Auto 3.5 % (0-4.4); Hematocrit 34.6 % (42.0-52.0); Hemoglobin 10.9 g/dL (14.0-18.0); Immature Granulocyte Absolute 0.02 K/mm3 (0.00-0.031); Immature Granulocyte Percent A 0.4 % (0-0.5); Lymphocytes Absolute Auto 1.01 K/mm3 (0.9-3.2); Lymphocytes Percent Auto 20.8 % (18.3-44.2); Mean Corpuscular HGB Conc 31.5 g/dl (32-36); Mean Corpuscular Hemoglobin 33.2 pg (26-34); Mean Corpuscular Volume 105.5 fl (80-100); Monocytes Absolute Auto 0.4 K/mm3 (0.1-0.6); Neutrophils Absolute Auto 3.2 K/mm3 (1.3-6.7); Neutrophils Percent Auto 66.7 % (45.5-73.1); Platelet Count Result 227 k/mm3 (150-375); Red Blood Count 3.28 M/mm3 (4.6-6.20); Red Cell Distribution Width 12.8 % (11.5-14.5); White Blood Count 4.9 K/mm3 (4.5-10.0)
--- NOTE | 2024-03-30 11:00 | PCSTNOTE ---
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 Therapist spoke with LINK Delatorre, who stated patient took applesauce fine, also drank water and took pills without difficulty. She noted the patient leaving the sausage on the tongue and not swallowing it for an extended period of time. Recommendations include Pureed Diet, Level 4, and Regular Liquids, Level 0. Place medicines in applesauce to assist with swallowing and/or encourage much water. Concerns will be for adequate oral intake. Results were discussed with Miracle, Hospitalist, and LINK Delatorre, who voiced understanding and were in agreement.
[2024-03-30 11:19] LABS: Platelet Estimate Adequate (Adequate)
[2024-03-30 11:20] LABS: Macrocytosis 1+ (NORMAL); Schistocytes None Seen
[2024-03-30 11:57] LABS: Glucose Point of Care 124 mg/dl (65-105)
[2024-03-30 17:11] LABS: Glucose Point of Care 114 mg/dl (65-105)
--- NOTE | 2024-03-30 17:23 | PM.IMPN ---
Progress Note: A&P Assessment and Plan (1) Acute kidney injury: Code(s): N17.9 - Acute kidney failure, unspecified Status: Acute Assessment and Plan: Gentle hydration Avoid nephrotoxic medication (2) Hypotension: Qualifiers: Trimester: unspecified trimester Code(s): I95.9 - Hypotension, unspecified Status: Acute Assessment and Plan: Resolved, likely secondary to dehydration (3) Cough: Qualifiers: Cough type: acute Qualified Code(s): R05.1 - Acute cough Code(s): R05.9 - Cough, unspecified Status: Acute Assessment and Plan: CXR-03/29/2024 IMPRESSION: 1. Small lung volumes with mild atelectasis in the lower lung zones. Monitor Aspiration precautions Swallow evaluation-unble to complete but recommend pureed with thin liquids (4) Dementia: Qualifiers: Dementia type: unspecified type Code(s): F03.90 - Unspecified dementia, unspecified severity, without behavioral disturbance, psychotic disturbance, mood disturbance, and anxiety Status: Chronic (5) Type 2 diabetes mellitus: Code(s): E11.9 - Type 2 diabetes mellitus without complications Status: Chronic Assessment and Plan: Hold metformin until kidney function improves Monitor lab work (6) Chronic anemia: Code(s): D64.9 - Anemia, unspecified Status: Acute Time Spent With Patient Time with patient: 15 - 25 minutes Subjective Date/time seen: 03/30/24 1145 Review of Systems Review of Systems: ROS unobtainable: Yes unobtainable due to mental status (h/o dementia and very sleepy) Exam Narrative: On rounding patient is sleeping. Appears in no distress. Vital signs stable. Const: General: comfortable and no acute distress HENMT: Face/Nose/Sinus: Normal nares present Mouth: Yes moist mucous membranes Eyes: General: appearance normal, both eyes and all related structures Neck: Neck: supple and no JVD Resp: Effort & Inspection: normal respiratory effort Auscultation: clear to auscultation bilaterally Cardio: Rate: regular rate Rhythm: regular rhythm GI: Other: Abdomen is flat, soft, and nontender to palpation with good bowel sounds x 4 quadrants. Skin: General skin exam: normal color and no rashes or lesions noted Neuro: Sensory Exam: normal sensation Extrem: General: normal to inspection Psych: Other: Patient was awake earlier for swallow eval and ate his meal, but is sleepy at this time Objective Data Vital Signs Vital Signs: Vital Signs - 24 hr 03/29/24 20:00 03/29/24 20:00 03/29/24 21:55 Temperature 97.7 F 97.7 F Pulse Rate 69 69 77 Respiratory Rate 20 20 12 Blood Pressure 129/73 125/72 Pulse Oximetry 100 100 100 Oxygen Delivery Room Air 03/30/24 06:00 03/30/24 08:28 03/30/24 08:34 Temperature 97.0 F L Pulse Rate 58 L 64 Respiratory Rate 12 Blood Pressure 118/87 Pulse Oximetry 100 98 Oxygen Delivery Room Air 03/30/24 09:45 03/30/24 09:45 03/30/24 14:00 Temperature 97.2 F L 97.2 F L 98 F Pulse Rate 61 64 62 Respiratory Rate 20 20 18 Blood Pressure 119/76 134/78 129/78 Pulse Oximetry 97 97 99 Oxygen Delivery Intake/Output Intake/Output: Intake & Output 03/27/24 03/28/24 03/29/24 03/30/24 23:59 23:59 23:59 23:59 Intake Total 1360 2061.7 Balance 1360 2061.7 Meds/Results Medications: Active Medications Generic Name Dose Route Start Last Admin Trade Name Freq PRN Reason Stop Dose Admin Acetaminophen 650 mg 03/29/24 14:15 Acetaminophen 325 Mg Tablet PO Q4H PRN Mild Pain (1-3) or Fever Artificial Tears 1 drop 03/29/24 21:00 03/30/24 12:32 Artificial Tears Ophth Soln 15 Ml Bottle EACH EYE 1 drop QID TIM Administration Atorvastatin Calcium 40 mg 03/29/24 21:00 03/29/24 21:09 Atorvastatin 40 Mg Tablet PO 40 mg HS TIM Administration Clopidogrel Bisulfate 75 mg 03/30/24 09:00
--- NOTE | 2024-03-30 17:31 | PM.IMPN ---
Subjective Date/time seen: 03/30/24 Objective Data Vital Signs Vital Signs: Vital Signs - 24 hr 03/29/24 20:00 03/29/24 20:00 03/29/24 21:55 Temperature 97.7 F 97.7 F Pulse Rate 69 69 77 Respiratory Rate 20 20 12 Blood Pressure 129/73 125/72 Pulse Oximetry 100 100 100 Oxygen Delivery Room Air 03/30/24 06:00 03/30/24 08:28 03/30/24 08:34 Temperature 97.0 F L Pulse Rate 58 L 64 Respiratory Rate 12 Blood Pressure 118/87 Pulse Oximetry 100 98 Oxygen Delivery Room Air 03/30/24 09:45 03/30/24 09:45 03/30/24 14:00 Temperature 97.2 F L 97.2 F L 98 F Pulse Rate 61 64 62 Respiratory Rate 20 20 18 Blood Pressure 119/76 134/78 129/78 Pulse Oximetry 97 97 99 Oxygen Delivery Intake/Output Intake/Output: Intake & Output 03/27/24 03/28/24 03/29/24 03/30/24 23:59 23:59 23:59 23:59 Intake Total 1360 2061.7 Balance 1360 2061.7 Meds/Results Medications: Active Medications Generic Name Dose Route Start Last Admin Trade Name Freq PRN Reason Stop Dose Admin Acetaminophen 650 mg 03/29/24 14:15 Acetaminophen 325 Mg Tablet PO Q4H PRN Mild Pain (1-3) or Fever Artificial Tears 1 drop 03/29/24 21:00 03/30/24 12:32 Artificial Tears Ophth Soln 15 Ml Bottle EACH EYE 1 drop QID TIM Administration Atorvastatin Calcium 40 mg 03/29/24 21:00 03/29/24 21:09 Atorvastatin 40 Mg Tablet PO 40 mg HS TIM Administration Clopidogrel Bisulfate 75 mg 03/30/24 09:00 03/30/24 08:36 Clopidogrel Bisulfate 75 Mg Tablet PO 75 mg DAILY TIM Administration Dextrose 12.5 gm 03/29/24 15:18 Dextrose 50% 25 Gm/50 Ml Syringe IV PUSH PRN PRN Hypoglycemia Protocol Enoxaparin Sodium 40 mg 03/30/24 09:00 03/30/24 08:36 Enoxaparin 40 Mg/0.4 Ml Syringe SUB-Q 40 mg DAILY TIM Administration Glucagon 1 mg 03/29/24 15:18 Glucagon For Inj 1 Mg Vial IM PRN PRN Hypoglycemia Protocol Glucose 15 gm 03/29/24 15:18 Glucose Oral Gel 15 Gm Of Glucse In 37.5 Gm Tube PO PRN PRN Hypoglycemia Protocol Dextrose 1,000 mls @ 100 mls/hr 03/29/24 15:18 Dextrose 5% 1,000 Ml IVPB PRN PRN Hypoglycemia Protocol Lactated Ringer's 1,000 mls @ 100 mls/hr 03/29/24 20:00 03/30/24 14:55 Lr - Lactated Ringers Iv IV CONT 100 mls/hr .Q10H TIM Administration Insulin Aspart 2 - 5 units 03/29/24 17:00 03/29/24 18:12 Insulin Aspart (*Bkc) 100 Units/Ml SUB-Q Not Given TIDWM TIM Protocol Insulin Aspart 1 - 2 units 03/29/24 21:00 03/29/24 21:10 Insulin Aspart (*Bkc) 100 Units/Ml SUB-Q Not Given HS TIM Protocol Magnesium Oxide 400 mg 03/30/24 09:00 03/30/24 08:36 Magnesium Oxide 400 Mg Tablet PO 400 mg DAILY TIM Administration Metoprolol Tartrate 25 mg 03/29/24 21:00 03/30/24 08:34 Metoprolol Tartrate 25 Mg Tablet PO 25 mg Q12HR TIM Administration Ondansetron HCl 4 mg 03/29/24 14:15 Ondansetron Inj 4 Mg/2 Ml Vial IV PUSH Q4H PRN Nausea Oxybutynin Chloride 5 mg 03/30/24 09:00 03/30/24 08:40 Oxybutynin Chloride Xl 5 Mg Tab.Er.24 PO Not Given DAILY TIM Pantoprazole Sodium 20 mg 03/30/24 09:00 03/30/24 08:39 Pantoprazole Sod Sesquihydrate 20 Mg Tab PO Not Given QAM TIM Polyethylene Glycol 17 gm 03/30/24 09:00 03/30/24 08:36 Polyethylene Glycol 3350 17 Gm Powd.Pack PO 17 gm DAILY TIM Administration Quetiapine Fumarate 25 mg 03/29/24 20:45 03/30/24 08:36 Quetiapine Fumarate 25 Mg Tablet PO 25 mg BID TIM Administration Ranolazine 1,000 mg 03/29/24 21:00 03/30/24 08:38 Ranolazine 500 Mg Tab.Er.12h PO Not Given Q12HR [facility] Vitamin D 1,000 units 03/30/24 09:00 03/30/24 08:36 Cholecalciferol 1,000 Units Tablet PO 1,000 units DAILY TIM Administration Radiology Results: ITS Impressions Chest X-Ray 03/29/24 11:57 IMPRESSION: 1. Small lung volumes with mild atelectasi
[2024-03-30 19:53] LABS: Glucose Point of Care 165 mg/dl (65-105)
[2024-03-30] MEDS: ATORVASTATIN 40 MG TABLET PO (20:29)
[2024-03-31] MEDS: LACTATED RINGERS 1,000 ML 100 ML IV CONT (00:28)
[2024-03-31 06:00] VITALS: BP 122/84; PULSE 61; RESP 16; TEMP 36.4; O2SAT 98
[2024-03-31 07:54] LABS: Glucose Point of Care 93 mg/dl (65-105)
[2024-03-31 08:00] VITALS: BP 139/78; PULSE 64; RESP 18; TEMP 36; O2SAT 99
[2024-03-31 08:14] VITALS: PULSE 61
[2024-03-31] MEDS: QUEtiapine FUMARATE 25 MG TABLET PO (08:14)
[2024-03-31] MEDS: CLOPIDOGREL BISULFATE 75 MG TABLET PO (08:14)
[2024-03-31] MEDS: METOPROLOL TARTRATE 25 MG TABLET PO (08:14)
[2024-03-31] MEDS: CHOLECALCIFEROL 1,000 UNITS TABLET 1000 UNITS PO (08:14)
[2024-03-31] MEDS: polyethylene glycoL 3350 17 GM POWD.PACK PO (08:14)
[2024-03-31] MEDS: MAGNESIUM OXIDE 400 MG TABLET PO (08:15)
[2024-03-31] MEDS: ARTIFICIAL TEARS OPHTH SOLN 15 ML BOTTLE 1 DROP EACH EYE (08:22)
[2024-03-31 09:10] LABS: Basophils Percent Auto 0.6 % (0.2-1.2); Eosinophils Absolute Auto 0.2 K/mm3 (0-0.3); Eosinophils Percent Auto 3.6 % (0-4.4); Hematocrit 35.4 % (42.0-52.0); Hemoglobin 11.9 g/dL (14.0-18.0); Immature Granulocyte Absolute 0.01 K/mm3 (0.00-0.031); Immature Granulocyte Percent A 0.2 % (0-0.5); Lymphocytes Percent Auto 17.1 % (18.3-44.2); Mean Corpuscular HGB Conc 33.6 g/dl (32-36); Mean Corpuscular Hemoglobin 34.1 pg (26-34); Mean Corpuscular Volume 101.4 fl (80-100); Monocytes Absolute Auto 0.3 K/mm3 (0.1-0.6); Monocytes Percent Auto 6.5 % (2.6-8.5); Neutrophils Absolute Auto 3.8 K/mm3 (1.3-6.7); Platelet Count Result 228 k/mm3 (150-375); Red Blood Count 3.49 M/mm3 (4.6-6.20); Red Cell Distribution Width 12.9 % (11.5-14.5); White Blood Count 5.3 K/mm3 (4.5-10.0)
[2024-03-31 09:19] LABS: Anion Gap 9 mmol/L (4-12); Blood Urea Nitrogen 16 mg/dL (9-20); Calcium 8.7 mg/dL (8.4-10.2); Carbon Dioxide 24 mmol/L (22-30); Chloride 104 mmol/L (98-107); Estimated CRCL calculation 59 ml/min; Estimated Glomerular Filt Rate > 60; Glucose 119 mg/dL (65-110); Magnesium 1.5 mg/dL (1.6-2.3); Potassium 3.8 mmol/L (3.4-5.0); Sodium 137 mmol/L (137-145)
[2024-03-31 11:30] LABS: Glucose Point of Care 138 mg/dl (65-105)
--- NOTE | 2024-03-31 12:59 | PM.DS ---
DS: Admitting Diagnosis Discharge Date 03/31/2024 Admitting Diagnosis ESHA Coughing while eating DS: Discharge Diagnosis Discharge Diagnosis (1) Acute kidney injury: Code(s): N17.9 - Acute kidney failure, unspecified Status: Acute Assessment and Plan: Gentle hydration Avoid nephrotoxic medication (2) Dementia: Qualifiers: Dementia type: unspecified type Code(s): F03.90 - Unspecified dementia, unspecified severity, without behavioral disturbance, psychotic disturbance, mood disturbance, and anxiety Status: Chronic Assessment and Plan: continue current home medications - swallow eval - unable to complete, however, nursing staff and speech therapy recommended pureed diet with thin liquids. Patient may need assistance in eating at this point. Aspiration precautions. DS: Summary Hospital Course Reason for hospitalization: ESHA Cough with eating Dementia Hospital Course: Chief Complaint: Coughing at breakfast. Narrative: This is an 83-year-old male with dementia, coronary artery disease, type 2 diabetes mellitus, hypertension, chronic anemia, and other comorbidities who presented to the emergency department via EMS from [facility] for evaluation after he began coughing at breakfast. He cannot provide an accurate history and a majority the following is obtained via a review for his EMR and information provided by his , Tabatha. She sees the patient daily and reports that he was eating and drinking well up until about 3 weeks ago when almost suddenly he stopped feeding himself. For a period of time he would eat pretty good when she feed him but he has started to pocket food in his cheeks and he is not drinking much. Staff at his facility report that he began coughing while at breakfast and then he slid out of his chair. They were apparently concerned for possible aspiration and send him to the ED for evaluation. There were no reports of aspiration, hypoxia, vomiting, or recent illnesses. At the time my evaluation the patient is alert. He will occasionally nod or shake his head appropriately when asked questions. He shook his head no when asked if he was having pain or difficulty swallowing. In the ED: Blood pressure was 79/56 on arrival. The remainder of his vital signs have been stable. He is afebrile. Labs are significant for WBC count of 7.0, hemoglobin 12.3, BUN 25, creatinine 1.70, glucose 141. Chest x-ray showed small lung volumes with mild atelectasis in lower lung zones. He received a L of normal saline with improvement his blood pressures. He is being admitted with an acute kidney injury for further treatment and evaluation. patient has responded well to gentle hydration and vital signs remained stable. No further episodes hypotension. Lab work this morning reveals BUN 16, creatinine 0.9. Patient was unable to complete swallow evaluation secondary to dementia, however, speech therapy and nursing staff felt patient would do best with pureed diet thin liquids. Patient has had no further episodes coughing while eating. May need to help patient Eat at times as he seems to forget what he is doing pretty well plans at discharge [facility] as [facility] appears to be his baseline. Status at Discharge Cognitive/behavioral status at discharge: The patient is alert but disoriented. Does follow some simple commands at times and can give you his name at times but not consistently. Overall status at discharge: patient is back to baseline Time Spent with Patient Time attestation: Total time spent providing and/or coordinating discharge services: Time spent: Less than 30 minutes Exam Narrative: On rounding patient is sitting up in the chair eating his lunch. Patient looks up 1 provider causes name and can repeat his name but not able to answer any further orientation questions. Does follow a few simple commands but not all were consistently.
[2024-03-31 14:00] VITALS: BP 117/68; PULSE 87; RESP 18; TEMP 36.3; O2SAT 100
== END 2024-03-31 15:45 ==
LOC: ANHED 14:41 → ANH3MEDSUR 15:49
PROVIDERS: Nurse Practitioner Family; Physician Assistant; Admitting Provider Internal Medicine; Emergency Provider Emergency Medicine; PCP Internal Medicine; Visit Provider General Practice
DX: N17.9 Acute kidney failure, unspecified (principal); I95.9 Hypotension, unspecified; R05.1 Acute cough; F03.90 Unspecified dementia, unspecified severity, without behavioral disturbance, psychotic disturbance, mood disturbance, and anxiety; E11.9 Type 2 diabetes mellitus without complications; D64.9 Anemia, unspecified; I25.10 Atherosclerotic heart disease of native coronary artery without angina pectoris; I10 Essential (primary) hypertension; K21.9 Gastro-esophageal reflux disease without esophagitis; E78.5 Hyperlipidemia, unspecified; G47.33 Obstructive sleep apnea (adult) (pediatric); I73.9 Peripheral vascular disease, unspecified; Z66 Do not resuscitate; W07.XXXA Fall from chair, initial encounter; Z79.02 Long term (current) use of antithrombotics/antiplatelets; Z79.84 Long term (current) use of oral hypoglycemic drugs; Z79.899 Other long term (current) drug therapy; Z86.0101 Personal history of adenomatous and serrated colon polyps; Z95.1 Presence of aortocoronary bypass graft; Z95.5 Presence of coronary angioplasty implant and graft
CPT/HCPCS: 36415; 71046; 80048; 80053; 82948; 83735; 85025; 93005; 96360; 96361; 96372; 97161; 97166; 99285; A9270; G0378; J1650; J7030; J7120